=== PATIENT | male | born 1945 | race African-American/Black ===

== ENCOUNTER 2020-07-02 15:12 | Observation (INO) | payer MEDICARE, OTHER ==
--- NOTE | 2020-07-02 15:35 | ER Document Report ---
ED Neuro Symptoms/Deficit - General Stated Complaint: POSSIBLE STROKE Time Seen by Provider: 07/02/20 15:13 - HPI Notes: Patient is a 74-year-old male who is a poor historian and presents with stroke- like symptoms. Patient is brought in by EMS. Information is provided by them. Family called because they thought that he had worsening slurred speech than normal. He also had worsening left-sided weakness than his baseline. 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 When the ambulance arrived, the family states his symptoms have improved. He is at baseline. Patient is alert and oriented. Last known well was approximately 2:30 PM. Patient is not a TPA candidate due to resolving symptoms. - Related Data Allergies/Adverse Reactions: No Known Allergies Allergy (Unverified 07/02/20 23:46) Past Medical History - General Information source: Relative, Emergency Med Personnel - Social History Smoking Status: Unknown if Ever Smoked Family History: Reviewed & Not Pertinent Review of Systems - Review of Systems Notes: CONSTITUTIONAL: No fever. Positive for fatigue. SKIN: No rash. EYES: No recent vision problems or eye pain. CARDIOVASCULAR: No chest pain or edema. RESPIRATORY: No cough, shortness of breath, congestion, or wheezing. GASTROINTESTINAL: No abdominal pain. Positive for diarrhea. NEUROLOGIC: No seizures. Positive for resolved left sided weakness. HEMATOLOGIC: No unusual bruising or bleeding. Physical Exam - Vital signs Vitals: Temp 97.8 F 07/02/20 15:12 - General General appearance: Appears well Notes: VITAL SIGNS: Within normal limits. GENERAL: No acute distress, non-toxic appearance. HEAD: Normal with no signs of head trauma. EYES: EOMI, conjunctiva normal, no discharge. EARS: Hearing grossly intact. NOSE: Normal. NECK: Normal range of motion, no tenderness, supple, no lymphadenopathy, No adenopathy, no JVD. CHEST: Clear breath sounds bilaterally. No wheezes, rales, or rhonchi. CARDIAC: Regular rate and rhythm. VASCULAR: No Edema. ABDOMEN: Normal and soft with no tenderness. MUSCULOSKELETAL: Good range of motion of all major joints. NEUROLOGICAL: Alert and oriented. Follows commands appropriately. NIH is 0. He is at baseline. Moving bilateral extremities. PSYCHIATRIC: Normal Affect, judgement and mood. SKIN: Normal appearance with no rashes or lesions. Course - Re-evaluation Re-evalutation: 07/02/20 16:45 Patient's niece arrived and provided information. She states that he recently moved here from [place] in March. He was diagnosed with gallbladder cancer and was receiving some treatment but not chemotherapy or radiation. He just had a neurology appointment yesterday and they wanted to obtain an MRI to make sure the cancer had not metastasized. They thought that the cancer might have metastasized to the liver and the lung. They saw [facility] for this. His niece states that he was in the emergency room out of town several days ago for an episode of altered mental status. He also went back to the emergency room this morning around 4 AM for constipation and episode of altered mental status. They have been giving him MiraLAX and Dulcolax. Today, around 230pm, she states that he was walking to the bathroom when he became weak. She sat him down and he was not responding to her. She states that he had a blank look on his face. He also had worsening weakness of his left arm than his normal weakness. This episode lasted about 5 minutes. She states that over the past couple days, he has had episodes where he leans over and is very rigid and needs redirection. 07/02/20 19:22 I discussed with the hospitalist, Dr. Allen, for admission. He recommended we obtain an MRI with contrast as well as a UA. He states that if he does have metastasis to the brain, he would need a different facility. Patient's UA shows a UTI. He was given Rocephin. His MRI does not show an acute stroke. His niece states that he has been feeling very weak and she is concerned that he may fall. He is also been to several ERs for this within the past couple days. I did discuss with the hospitalist for admission for UTI and weakness. 07/03/20 01:33 - Vital Signs Vital signs: Temp Pulse Resp BP Pulse Ox 97.6 F 83 18 138/68 H 99 07/02/20 23:37 07/02/20 23:37 07/02/20 23:37 07/02/20 23:37 07/02/20 23:37 - Laboratory Result Diagrams: 07/02/20 15:45 07/02/20 15:45 Laboratory results interpreted by me: 07/02/20 07/02/20 07/02/20 15:45 15:45 17:10 WBC 12.3 H RBC 4.28 L Hgb 11.6 L Hct 34.5 L RDW 17.6 H Lymph % (Auto) 9.2 L Absolute Neuts (auto) 10.4 H Seg Neutrophils % 84.1 H Sodium 130.3 L Chloride 95 L Glucose 124 H POC Glucose 119 H AST 65 H Alkaline Phosphatase 293 H Total Protein 8.7 H Urine Protein Urine Blood Ur Leukocyte Esterase 07/02/20 17:25 WBC RBC Hgb Hct RDW Lymph % (Auto) Absolute Neuts (auto) Seg Neutrophils % Sodium Chloride Glucose POC Glucose AST Alkaline Phosphatase Total Protein Urine Protein 30 H Urine Blood SMALL H Ur Leukocyte Esterase LARGE H - Diagnostic Test Radiology reviewed: Image reviewed, Reports reviewed - EKG Interpretation by Me EKG shows normal: Sinus rhythm Rate: Normal Rhythm: NSR [place]/QRS: Right axis deviation Additional EKG results interpreted by nm: 07/02/20 15:35 Sinus rhythm at a rate of 95. QTc 473. No acute ST changes. No previous EKG available for comparison. Discharge - Discharge Clinical Impression: Stroke-like symptoms Urinary tract infection Qualifiers: Urinary tract infection type: site unspecified Hematuria presence: without hematuria Qualified Code(s): N39.0 - Urinary tract infection, site not specified Altered mental status Qualifiers: Altered mental status type: unspecified Qualified Code(s): R41.82 - Altered mental status, unspecified Condition: Stable Disposition: ADMITTED INPATIENT Admitting Provider: [facility] Unit Admitted: Medical Floor
--- NOTE | 2020-07-02 15:43 | RADIOLOGY REPORT (SQ) ---
EXAM DESCRIPTION: CT HEAD WITHOUT IMAGES COMPLETED DATE/TIME: 07/02/2020 3:18 pm REASON FOR STUDY: tia or stroke COMPARISON: None. TECHNIQUE: Axial images acquired through the brain without intravenous contrast. Images reviewed wi th bone, brain and subdural windows. Additional sagittal and coronal reconstructions were generated. Images stored on PACS. All CT scanners at this facility use dose modulation, iterative reconstruction, and/or weight based d osing when appropriate to reduce radiation dose to as low as reasonably achievable (ALARA). [facility]: Dose Right [facility]: CareDose [facility]: Dose Right [facility]: Teradose 4D [facility]: [employer] RADIATION DOSE: mGy. LIMITATIONS: None. FINDINGS: VENTRICLES: Prominent. CEREBRUM: Biparietal and right frontal encephalomalacia consistent with sequela previous large territ ory infarcts. Scattered foci of hypoattenuation throughout the periventricular white matter suggests background of chronic microvascular ischemic change. No hemorrhage. No mass. CEREBELLUM: No masses. No hemorrhage. No alteration of density. No evidence for acute infarction. EXTRAAXIAL SPACES: No abnormal fluid collection. No mass. ORBITS AND GLOBE: No intra- or extraconal masses. Normal contour of globe without masses. CALVARIUM: No fracture. PARANASAL SINUSES: No fluid or mucosal thickening. SOFT TISSUES: No mass or hematoma. OTHER: No other significant finding. IMPRESSION: Multifocal encephalomalacia consistent with sequela of remote ischemic injuries. EVIDENCE OF ACUTE STROKE: NO. COMMENT: Pertinent positive or negative findings of the imaging study reported as a CRITICAL EXAM to Dr Alvarez at15:29 on 07/02/2020. Category of Critical Exam: Stroke alert. TECHNICAL DOCUMENTATION: JOB ID: [id number] Quality ID # [id number]: Final reports with documentation of one or more dose reduction techniques (e.g., Au tomated exposure control, adjustment of the mA and/or kV according to patient size, use of iterative reconstruction technique) 2010 [employer]- All Rights Reserved Reading location - IP/workstation name: [email or web address]
--- NOTE | 2020-07-02 15:45 | ER Document Report ---
ED NIH Stroke Scale - NIH Stroke Scale When completed:: Protocol *: 1. NIH scale should be completed with appropriate accompanying assessment tools. *: 2. The NIH should reflect what the patient is capable of doing and should not be coached by the clinician. 1a. Level of Consciousness: 0=Alert;keenly responsive -: 1=Drowsy -: 2=Obtunded -: 3=Coma/unresponsive or reflex to noxious stimuli. 1a. Responses: 0 1b. Orientation Questions: a. What month is it? -: b. How old are you? -: 0=Answers both questions correctly. -: 1=Answers one question correctly or patient is intubated or has orotracheal trauma. -: 2=Answers neither question correctly. 1b. Responses: 0 1c. Response to commands: a. Open and close eyes? -: b. Industrial Cleaning Technician and release hand? -: Credit is given despite weakness. Demonstration of task is permitted. Substitute command if hands cannot be used. -: 0=Performs both tasks correctly -: 1=Performs one task correctly -: 2=Performs neither task correctly 1c. Responses: 0 2. Gaze: Establish eye contact and instruct patient to "Follow my finger" -: 0=Normal -: 1=Partial gaze palsy. Gaze is abnormal in one or both eyes, but where forced deviation or total gaze paresis is not present. -: 2=Forced deviation or total gaze paresis. 2. Responses: 0 3. Visual Benson: Sees fingers in all four quadrants. -: 0=No visual loss. -: 1=Partial hemianopsia. -: 2=Complete hemianopsia. -: 3=Bilateral hemianopsia (including Cortical blindness) 3. Responses: 0 4. Facial Movement: Instruct patient to: -: a. Show me your teeth -: b. Raise your eyebrows -: c. Close your eyes -: d. Smile -: 0=Normal symmetrical movement -: 1=Minor paralysis (flattened nasolabial fold, asymmetry on smiling). -: 2=Partial paralysis (total or near total paralysis of lower face). -: 3=Complete paralysis of upper and lower face 4. Responses: 0 5. Motor functions (left arm): Alternate sides and extend each arm with palms down (90 degrees if sitting or 45 degrees for supine). -: 0=No drift;limb holds for full 10 seconds. -: 1=Drift; limb holds but drifts down before full 10 seconds, but does not hit bed. -: 2=Some effort against gravity; limb cannot get to or maintain position. -: 3=No effort against gravity; limb falls. -: 4=No movement. -: UN=Amputation, joint fusion, explain in comments. 5. Responses (left arm): UN - residual weakness previous stroke 5. Motor Functions (right arm): Alternate sides and extend each arm with palms down (90 degrees if sitting or 45 degrees for supine). -: 0=No drift;limb holds for full 10 seconds. -: 1=Drift; limb holds but drifts down before full 10 seconds, but does not hit bed. -: 2=Some effort against gravity; limb cannot get to or maintain position. -: 3=No effort against gravity; limb falls. -: 4=No movement. -: UN=Amputation, joint fusion, explain in comments. 5. Responses (right arm): 0 6. Motor Functions (left leg): With patient lying supine, alternate sides and extend each leg (30 degrees always while supine). -: 0=No drift, leg holds position for full 5 seconds -: 1=Drift; leg falls before full 5 seconds but does not hit bed. -: 2=Some effort against gravity, leg falls to bed but some effort against gravity. -: 3=No effort against gravity, leg falls to bed immediately. -: 4=No movement. -: UN=Amputation, joint fusion; explain in comments. 6. Responses (left leg): UN - Residual weakness, previous stroke 6. Motor Functions (right leg): With patient lying supine, alternate sides and extend each leg (30 degrees always while supine). -: 0=No drift, leg holds position for full 5 seconds -: 1=Drift; leg falls before full 5 seconds but does not hit bed. -: 2=Some effort against gravity, leg falls to bed but some effort against gravity. -: 3=No effort against gravity, leg falls to bed immediately. -: 4=No movement. -: UN=Amputation, joint fusion; explain in comments. 6. Responses (right leg): 0 7. Limb Ataxia: With eyes open instruct patient to: -: a. "Touch your finger to your nose". -: b. "Touch your heel to your sterling" -: 0=Absent -: 1=Present in one limb. -: 2=Present in two limbs. -: UN=Amputation or joint fusion; explain in comments. 7. Responses: 0 8. Sensory: Test sensation using pinprick or noxious stimuli. Test as many body parts as possible. -: 0=Normal;no sensory loss -: 1=Mile to moderate sensory loss (patient feels pin prick but is less sharp on affected side). -: 2=Severe or total sensory loss. 8. Responses: 0 9. Best Language: Instruct patient to: -: a. "Describe what you see in this picture." -: b. "Name the items in this picture." -: c. "Read these sentences." -: 0=No aphasia, normal -: 1=Mild to moderate aphasia. -: 2=Severe aphasia -: 3=Mute, global aphasia, no usable speech or auditory comprehension. 9. Responses: 0 10. Articulation, Dysarthia: Instruct patient to: -: "Read these words" or "Repeat these words" -: 0=Normal -: 1=Mild to moderate; patient may slur some words but can be understood without difficulty. -: 2=Severe; patients speech so slurred as to be unintelligible in the absence of dysphasia. -: UN=Intubated or other physical barrier, explain in comments. 10. Responses: 0 11. Extinction or inattention: 0=No abnormality -: 1= Visual, tactile, auditory, spatial, or personal inattention or extinction to bilateral simulation in one or the sensory modalities. -: 2=Profound indira-inattention or indira-inattention to more than one modality; does not recognize own hand. 11. Responses: 0 Total Score: 0
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
[2020-07-02 16:05] LABS: ABSOLUTE BASOPHILS # (AUTO) 0.1 10^3/uL (0.0-0.2); ABSOLUTE LYMPHOCYTES (AUTO) 1.1 10^3/uL (0.5-4.7); ABSOLUTE MONOCYTES (AUTO) 0.7 10^3/uL (0.1-1.4); ABSOLUTE NEUT (AUTO) 10.4 10^3/uL (1.7-8.2); BASOPHILS % (AUTO) 0.6 % (0-2); EOSINOPHILS % (AUTO) 0.1 % (0-6); HEMATOCRIT 34.5 % (37.9-51.0); HEMOGLOBIN 11.6 g/dL (13.5-17.0); LYMPHOCYTES % (AUTO) 9.2 % (13-45); MEAN CORPUSCULAR HGB CONC 33.6 g/dL (32.0-36.0); MEAN CORPUSCULAR VOLUME 81 fl (80-97); PLATELET COUNT 360 10^3/uL (150-450); RED BLOOD COUNT 4.28 10^6/uL (4.35-5.55); RED CELL DISTRIBUTION WIDTH 17.6 % (11.5-14.0); SEGMENTED NEUTROPHILS % (AUTO) 84.1 % (42-78); TOTAL CELLS COUNTED % (AUTO) 100 %; WHITE BLOOD COUNT 12.3 10^3/uL (4.0-10.5)
[2020-07-02 16:08] LABS: INTERNATIONAL RATION (INR) 1.06; PARTIAL THROMBOPLASTIN TIME 24.3 SEC (23.5-35.8)
[2020-07-02 16:21] LABS: ALBUMIN 3.8 g/dL (3.5-5.0); ALKALINE PHOSPHATASE 293 U/L (38-126); ANION GAP 8 (5-19); ASPARTATE AMINO TRANSFERASE 65 U/L (17-59); BILIRUBIN,DIRECT 0.3 mg/dL (0.0-0.4); BILIRUBIN,TOTAL 0.6 mg/dL (0.2-1.3); BLOOD UREA NITROGEN 19 mg/dL (7-20); CARBON DIOXIDE 27 mmol/L (22-30); CHLORIDE 95 mmol/L (98-107); CREATINE KINASE 59 U/L (55-170); GLUCOSE 124 mg/dL (75-110); POTASSIUM 4.1 mmol/L (3.6-5.0); TOTAL PROTEIN 8.7 g/dL (6.3-8.2)
[2020-07-02] MEDS ORDERED: NORMAL SALINE 500 ML IV ONE (16:29)
[2020-07-02 16:38] LABS: TROPONIN I < 0.012 ng/mL
--- NOTE | 2020-07-02 17:45 | EKG REPORT ---
SEVERITY:- ABNORMAL ECG - SINUS RHYTHM RAA, CONSIDER BIATRIAL ABNORMALITIES BORDERLINE RIGHT AXIS DEVIATION BORDERLINE T ABNORMALITIES, ANT-LAT LEADS : Confirmed by: Madi Jo MD 02-Jul-2020 17:45:28
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
[2020-07-02 18:47] LABS: APPEARANCE,URINE CLOUDY; BILIRUBIN,URINE NEGATIVE (NEGATIVE); COLOR,URINE YELLOW; GLUCOSE, URINE NEGATIVE (NEGATIVE); KETONES,URINE NEGATIVE (NEGATIVE); LEUKOCYTE ESTERASE,URINE LARGE (NEGATIVE); NITRITE,URINE NEGATIVE (NEGATIVE); PROTEIN,URINE 30 mg/dL (NEGATIVE); URINE SPECIFIC GRAVITY 1.012; UROBILINOGEN,URINE NEGATIVE mg/dL (<2.0)
[2020-07-02] MEDS ORDERED: CEFTRIAXONE 1 GM/D5W RTU 1 GM/50 ML RTUPB IV ONE (20:27)
--- NOTE | 2020-07-02 20:29 | RADIOLOGY REPORT (SQ) ---
MR BRAIN WITHOUT THEN WITH IV CONTRAST HISTORY: TIA vs stroke, possible brain metastasis. COMPARISON: CT scan from earlier the same day. TECHNIQUE: Multisequence, multiplanar MR imaging of the brain was performed without and with the administration of intravenous gadolinium. FINDINGS: There are scattered areas of hypoattenuation within the periventricular white matter, which likely represent chronic microvascular ischemia. There are areas of encephalomalacia in the bilateral parietal lobes with surrounding gliosis. No abnormal parenchymal or dural enhancement is seen. There is no acute intracranial hemorrhage, extra-axial fluid collection, or mass. The orbits are unremarkable. The calvarium and skull base appear unremarkable. The paranasal sinuses are clear. IMPRESSION: 1. No evidence of acute infarction. 2. 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
[2020-07-02] MEDS ORDERED: ACETAMINOPHEN 325 MG TABLET PO PRN (21:51)
[2020-07-02] MEDS ORDERED: ONDANSETRON HCL INJ/PF 4 MG/2 ML SDV IV PRN (21:51)
[2020-07-02] MEDS: FAMOTIDINE 20 MG TABLET PO SCH (22:21)
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
[2020-07-03] MEDS: RINGERS SOLUTION,LACTATED 1,000 ML IV PRN (02:34)
[2020-07-03 05:49] LABS: ABSOLUTE BASOPHILS # (AUTO) 0.1 10^3/uL (0.0-0.2); ABSOLUTE LYMPHOCYTES (AUTO) 1.7 10^3/uL (0.5-4.7); ABSOLUTE NEUT (AUTO) 11.4 10^3/uL (1.7-8.2); BASOPHILS % (AUTO) 0.5 % (0-2); EOSINOPHILS % (AUTO) 0.2 % (0-6); HEMATOCRIT 33.2 % (37.9-51.0); MEAN CORPUSCULAR HEMOGLOBIN 26.5 pg (27.0-33.4); MEAN CORPUSCULAR VOLUME 80 fl (80-97); MONOCYTES % (AUTO) 6.7 % (3-13); PLATELET COUNT 377 10^3/uL (150-450); RED BLOOD COUNT 4.14 10^6/uL (4.35-5.55); RED CELL DISTRIBUTION WIDTH 17.2 % (11.5-14.0); SEGMENTED NEUTROPHILS % (AUTO) 80.6 % (42-78); TOTAL CELLS COUNTED % (AUTO) 100 %; WHITE BLOOD COUNT 14.2 10^3/uL (4.0-10.5)
[2020-07-03 06:08] LABS: CHOLESTEROL 126.07 mg/dL (0-200); TRIGLYCERIDES 49 mg/dL (<150)
[2020-07-03 06:19] LABS: DIRECT LDL 33 mg/dL (<100)
[2020-07-03 09:55] LABS: ANION GAP 10 (5-19); BLOOD UREA NITROGEN 20 mg/dL (7-20); CALCIUM 9.6 mg/dL (8.4-10.2); CARBON DIOXIDE 23 mmol/L (22-30); CHLORIDE 100 mmol/L (98-107); GLUCOSE 81 mg/dL (75-110); POTASSIUM 4.5 mmol/L (3.6-5.0)
[2020-07-03] MEDS: POLYETHYLENE GLYCOL 3350 POWDER 17 GM/1 PACKET PO SCH (10:52)
[2020-07-03] MEDS: ENOXAPARIN SODIUM INJ 40 MG/0.4 ML DISP.SYRIN SUBCUT SCH (10:52)
[2020-07-03] MEDS: ASPIRIN 81 MG TABLET, CHEWABLE PO SCH (10:52)
[2020-07-03] MEDS: FAMOTIDINE 20 MG TABLET PO SCH ×2 (10:52→21:33)
[2020-07-03] MEDS ORDERED: NA PHOS,M-B/NA PHOS,DI-BA (ADULT) 133 ML ENEMA PR ONE (12:00)
[2020-07-03] MEDS: TRAMADOL HCL 50 MG TABLET PO PRN ×2 (13:09→20:06)
[2020-07-03] MEDS: AMLODIPINE BESYLATE 5 MG TABLET PO SCH (13:09)
--- NOTE | 2020-07-03 16:47 | XCELERA REPORT ---
[address] [address] Transthoracic Echocardiogram Report Name: THOM DELGADO Age: 74 yrs Gender: Male : 1945 Patient Status: [facility]: 07/03/2020 01:44 PM History: NATALIE Height: 64 in Weight: 114 lb BSA: 1.5 m2 Procedure: A complete two-dimensional transthoracic echocardiogram was performed (2D, M-mode, spectral and color flow Doppler). The study was technically difficult with many images being suboptimal in quality. Reason For Study: possible TIA Previous Evaluation: No previous studies were available. History: TIA. Ordering Physician: AMEE VILLAVICENCIO Performed By: Jeannie Castro Interpretation Summary No embolus or vegetation seen. If clinically indicated PAIGE is more sensitive, The finding described on the mitral valve does not suggest vegetation. Left ventricular systolic function is normal. The Ejection Fraction estimate is 55-60% The right ventricle is normal in size and function. Mitral valve leaflets are thickened Mass /thickening on the septal leaflet could be consistent with myxomatous degeneration. There is a trace amount of mitral regurgitation There is no aortic valve stenosis There is a trace amount of tricuspid regurgitation Small pericardial effusion. No embolus or vegetation seen. If clinically indicated PAIGE is more sensitive, The finding described on the mitral valve does not suggest vegetation. MMode/2D Measurements & Calculations RVDd: 1.8 cm LVIDd: 2.5 cm FS: 30.2 % Ao root diam: 2.4 cm IVSd: 1.1 cm LVIDs: 1.7 cm EDV(Teich): 21.6 ml Ao root area: 4.4 cm2 LVPWd: 1.1 cm ESV(Teich): 8.7 ml LA dimension: 1.9 cm EF(Teich): 59.8 % Doppler Measurements & Calculations MV E max reinier: MV P1/2t max reinier: Ao V2 max: LV V1 max P.6 cm/sec 70.6 cm/sec 95.3 cm/sec 3.2 mmHg MV A max reinier: MV P1/2t: 38.7 msec Ao max P.6 mmHgLV V1 max: 127.3 cm/sec MVA(P1/2t): 5.7 cm2 89.8 cm/sec MV E/A: 0.55 MV dec slope: 534.0 cm/sec2 MV dec time: 0.13 sec PA V2 max: TR max reinier: MV P1/2t-pr_phl: 108.1 cm/sec 259.5 cm/sec 38.7 msec PA max P.7 mmHg TR max P.9 mmHg Left Ventricle The left ventricle is normal in size. There is moderate concentric left ventricular hypertrophy. Left ventricular systolic function is normal. The Ejection Fraction estimate is 55-60%. Doppler measurements suggest impaired left ventricular relaxation, which is associated with grade I/IV or mild diastolic dysfunction. Regional wall motion abnormalities cannot be excluded due to limited visualization. The left ventricular apex is not well visualized. Right Ventricle The right ventricle is normal in size and function. Atria The right atrium is mildly dilated. The left atrium is mildly dilated. The interatrial septum is intact with no evidence for an atrial septal defect. Mitral Valve Mitral valve leaflets are thickened Mass /thickening on the septal leaflet could be consistent with myxomatous degeneration. There is no evidence of mitral valve prolapse. There is no mitral valve stenosis. There is a trace amount of mitral regurgitation. Aortic Valve The aortic valve is sclerotic, but shows no functional abnormality. The aortic valve opens well. The aortic valve is trileaflet. There is no aortic valve stenosis. No aortic regurgitation is present. Tricuspid Valve The tricuspid valve is normal in structure and function. There is a trace amount of tricuspid regurgitation. Tricuspid regurgitation jet envelope not well defined to measure RV systolic pressure accurately. Pulmonic Valve The pulmonic valve is not well visualized. There is no pulmonic valvular stenosis. There is a trace amount of pulmonic regurgitation. Great Vessels The aortic root is normal size. The inferior vena cava appeared normal and decreased > 50% with respiration (RAP 5-10 mmHg). Effusions Small pericardial effusion. There are no echocardiographic or Doppler indications for cardiac tamponade. : AMEE VILLAVICENCIO Anil
--- NOTE | 2020-07-03 16:56 | RADIOLOGY REPORT (SQ) ---
EXAM DESCRIPTION: CAROTID DOPPLER IMAGES COMPLETED DATE/TIME: 07/03/2020 3:51 pm REASON FOR STUDY: possible TIA COMPARISON: None. TECHNIQUE: Grayscale ultrasound, Doppler velocity and spectra, and color Doppler images acquired of the extra-cranial carotid and vertebral arteries. Images stored on PACS. LIMITATIONS: None. FINDINGS: RIGHT CAROTID CCA Velocities: Within normal limits. ICA Velocities Peak systolic 0.50 m/s. End diastolic 0.12 m/s. Proximal ICA/CCA peak systolic ratio 0.8. Spectra normal. No significant plaque. LEFT CAROTID CCA Velocities: Within normal limits. ICA Velocities Peak systolic 0.60 m/s. End diastolic 0.15 m/s. Proximal ICA/CCA peak systolic ratio 1.0. Spectra normal. No significant plaque. VERTEBRAL ARTERIES: Antegrade flow. Normal waveforms. SUBCLAVIAN ARTERIES: Not imaged. OTHER: No other significant finding. IMPRESSION: NO HEMODYNAMICALLY SIGNIFICANT STENOSIS. COMMENT: Quality ID #[id number]: Velocity criteria are extrapolated from the diameter data as defined by t he Society of Radiologists in Ultrasound Consensus Conference. Radiology 2003: 229; 340-346. TECHNICAL DOCUMENTATION: JOB ID: [id number] 2010 [employer]- All Rights Reserved Reading location - IP/workstation name: [email or web address]
--- NOTE | 2020-07-03 17:57 | RADIOLOGY REPORT (SQ) ---
EXAM DESCRIPTION: HIP RIGHT AP/LATERAL IMAGES COMPLETED DATE/TIME: 07/03/2020 5:33 pm REASON FOR STUDY: right hip pain COMPARISON: None. NUMBER OF VIEWS: Two views. TECHNIQUE: AP pelvis and additional frog legview of the right hip. LIMITATIONS: None. FINDINGS: MINERALIZATION: Normal. RIGHT HIP: No fracture or dislocation. No worrisome bone lesions. LEFT HIP: No fracture or dislocation. No worrisome bone lesions. Limited views. PUBIS AND ISCHIUM: No fracture. PELVIS: No fracture. SACRUM: No fracture or dislocation. No worrisome bone lesions. LOWER LUMBAR SPINE: Lower lumbar degenerative disc disease and spondylosis. SOFT TISSUES: No findings. OTHER: No other significant finding. IMPRESSION: Lumbar degenerative changes. Normal right hip. TECHNICAL DOCUMENTATION: JOB ID: [id number] 2010 [employer]- All Rights Reserved Reading location - IP/workstation name: [email or web address]
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
[2020-07-03] MEDS: ACETAMINOPHEN 325 MG TABLET PO SCH ×2 (20:02→21:33)
[2020-07-03] MEDS: LIDOCAINE 5% (700 MG) TRANSDERMAL ADH..PATCH TP SCH (20:11)
[2020-07-03] MEDS ORDERED: CEFTRIAXONE 1 GM/D5W RTU 1 GM/50 ML RTUPB IV SCH (22:00)
[2020-07-03] MEDS ORDERED: ATORVASTATIN CALCIUM 40 MG TABLET PO SCH (22:00)
[2020-07-04] MEDS: ACETAMINOPHEN 325 MG TABLET PO SCH ×4 (02:27→14:45)
[2020-07-04] MEDS: TRAMADOL HCL 50 MG TABLET PO PRN ×2 (05:18→14:46)
[2020-07-04] MEDS: RINGERS SOLUTION,LACTATED 1,000 ML IV PRN ×2 (05:19→10:24)
[2020-07-04 05:58] LABS: HEMATOCRIT 29.7 % (37.9-51.0); HEMOGLOBIN 9.9 g/dL (13.5-17.0); MEAN CORPUSCULAR HEMOGLOBIN 26.5 pg (27.0-33.4); MEAN CORPUSCULAR HGB CONC 33.4 g/dL (32.0-36.0); MEAN CORPUSCULAR VOLUME 79 fl (80-97); PLATELET COUNT 316 10^3/uL (150-450); RED BLOOD COUNT 3.74 10^6/uL (4.35-5.55); RED CELL DISTRIBUTION WIDTH 17.5 % (11.5-14.0)
[2020-07-04 06:21] LABS: ANION GAP 8 (5-19); BLOOD UREA NITROGEN 17 mg/dL (7-20); CALCIUM 9.2 mg/dL (8.4-10.2); CARBON DIOXIDE 24 mmol/L (22-30); CHLORIDE 100 mmol/L (98-107); GLUCOSE 76 mg/dL (75-110); POTASSIUM 4.1 mmol/L (3.6-5.0)
[2020-07-04] MEDS ORDERED: MULTIVITAMIN TABLET PO SCH (10:00)
[2020-07-04] MEDS ORDERED: LISINOPRIL 10 MG TABLET PO SCH (10:00)
[2020-07-04] MEDS: FAMOTIDINE 20 MG TABLET PO SCH (10:24)
[2020-07-04] MEDS: ASPIRIN 81 MG TABLET, CHEWABLE PO SCH (10:25)
[2020-07-04] MEDS: AMLODIPINE BESYLATE 5 MG TABLET PO SCH (10:25)
[2020-07-04] MEDS: ENOXAPARIN SODIUM INJ 40 MG/0.4 ML DISP.SYRIN SUBCUT SCH (10:26)
[2020-07-04] MEDS: POLYETHYLENE GLYCOL 3350 POWDER 17 GM/1 PACKET PO SCH (10:27)
[2020-07-04] MEDS: LIDOCAINE 5% (700 MG) TRANSDERMAL ADH..PATCH TP SCH (10:27)
[2020-07-04 13:57] VITALS: BP 141/69
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
--- NOTE | 2020-07-04 18:10 | ADVANCED CARE ---
- Diagnosis (1) Stroke-like symptoms Diagnosis Current: Yes (2) Urinary tract infection Diagnosis Current: Yes (3) Frequent falls Diagnosis Current: Yes (4) Hyponatremia Diagnosis Current: Yes (5) Hypertension Diagnosis Current: Yes (6) History of CVA with residual deficit Diagnosis Current: Yes (7) Constipation Diagnosis Current: Yes (8) Right hip pain Diagnosis Current: Yes Attendance: Discussion was held between myself, the patient and patient's niece who is his medical POA. Resuscitation Status: Full Code Discussion: The patient did declare his code status as full code, this was confirmed by his niece, POA. This discussion was focused on making sure that everyone understood the concept of DNR versus comfort measures or less aggressive care. At this time patient and POA are wanting evaluation by oncologist before making code-status changes. They were receptive and understanding of conversation. Following conversation they were provided information regarding hospice services for future reference. Care Planning Goals: The goal is that patient and family gain better understanding of wishes following appt with oncologist. Document(s) Completed: none Time Spent: 20 minutes
== END 2020-07-04 16:00 | disposition home or self-care (01) ==
LOC: ER 15:12 → EH 22:21 → 5 23:34
PROVIDERS: ADMIT Student in an Organized Health Care Education/Training Program; ATTEND Physician Assistant
DX: I69.354 Hemiplegia and hemiparesis following cerebral infarction affecting left non-dominant side (principal); N39.0 Urinary tract infection, site not specified; M62.81 Muscle weakness (generalized); I10 Essential (primary) hypertension; E87.1 Hypo-osmolality and hyponatremia; E78.5 Hyperlipidemia, unspecified; R47.81 Slurred speech; R29.6 Repeated falls; K59.00 Constipation, unspecified; M25.551 Pain in right hip; M79.604 Pain in right leg; Z85.09 Personal history of malignant neoplasm of other digestive organs; F17.200 Nicotine dependence, unspecified, uncomplicated; R29.700 NIHSS score 0
CPT/HCPCS: 93005; 99285; 96360; 96361; 36415 ×3; 87040; 87086; 82553; 82962; 82550; 85025 ×2; 85027; 85610; 85730; 87077; 87088; 80048 ×2; 80053; 81001; 84484; 87186; 80061; 87150 ×26; 93306; 93880; 70553; 71045; 73502; 74018; 70450; 93010; 97116; 97162; 92610; 97165; G0378 ×3; A9576; A9270 ×18; J1650 ×2; J7040; J7120 ×2; J0696 ×2; J3490

== ENCOUNTER 2020-07-07 00:13 | Inpatient (IN) | payer MEDICARE ==
[2020-07-07] MEDS ORDERED: IBUPROFEN SUSP 100 MG/5 ML ORAL SYRINGE PO ONE (02:36)
--- NOTE | 2020-07-07 02:36 | RADIOLOGY REPORT (SQ) ---
EXAM DESCRIPTION: CT HEAD WITHOUT IV CONTRAST COMPLETED DATE/TME: 07/07/2020 01:58 CLINICAL HISTORY: 74 years, Male, slurred speech COMPARISON: 07/02/2020 CT TECHNIQUE: 191 Images stored on PACS. All CT scanners at this facility use dose modulation, iterative reconstruction, and/or weight based dosing when appropriate to reduce radiation dose to as low as reasonably achievable (ALARA). [facility]: Dose Right [facility]: CareDose [facility]: Dose Right [facility]: Teradose 4D [facility]: [employer] LIMITATIONS: None. FINDINGS: The globes are intact. The paranasal sinuses and mastoid air cells are well aerated. No displaced or depressed skull fracture. No acute intracranial hemorrhage. CT is limited for evaluation of acute infarct. No CT evidence for large or territorial acute infarct. Areas of old infarct with encephalomalacia in the high parietal regions bilaterally. Diffuse atrophy with small vessel ischemic change. No mass or midline shift IMPRESSION: No acute intracranial abnormality. Areas of old infarct bilaterally with atrophy and small vessel ischemic change TECHNICAL DOCUMENTATION: Quality ID # [id number]: Final reports with documentation of one or more dose reduction techniques (e.g., Automated exposure control, adjustment of the mA and/or kV according to patient size, use of iterative reconstruction technique) copyright 2011 [employer]- All Rights Reserved
[2020-07-07 02:59] LABS: ABSOLUTE BASOPHILS # (AUTO) 0.1 10^3/uL (0.0-0.2); ABSOLUTE EOSINOPHILS # (AUTO) 0.1 10^3/uL (0.0-0.6); ABSOLUTE LYMPHOCYTES (AUTO) 1.3 10^3/uL (0.5-4.7); ABSOLUTE MONOCYTES (AUTO) 0.7 10^3/uL (0.1-1.4); ABSOLUTE NEUT (AUTO) 8.7 10^3/uL (1.7-8.2); EOSINOPHILS % (AUTO) 0.7 % (0-6); HEMOGLOBIN 11.7 g/dL (13.5-17.0); LYMPHOCYTES % (AUTO) 11.9 % (13-45); MEAN CORPUSCULAR HEMOGLOBIN 26.8 pg (27.0-33.4); MEAN CORPUSCULAR HGB CONC 33.4 g/dL (32.0-36.0); MEAN CORPUSCULAR VOLUME 80 fl (80-97); MONOCYTES % (AUTO) 6.7 % (3-13); PLATELET COUNT 353 10^3/uL (150-450); RED BLOOD COUNT 4.37 10^6/uL (4.35-5.55); RED CELL DISTRIBUTION WIDTH 17.9 % (11.5-14.0); SEGMENTED NEUTROPHILS % (AUTO) 79.7 % (42-78); TOTAL CELLS COUNTED % (AUTO) 100 %; WHITE BLOOD COUNT 10.9 10^3/uL (4.0-10.5)
[2020-07-07 03:07] LABS: ALBUMIN 3.5 g/dL (3.5-5.0); ALKALINE PHOSPHATASE 259 U/L (38-126); ANION GAP 5 (5-19); ASPARTATE AMINO TRANSFERASE 64 U/L (17-59); BILIRUBIN,DIRECT 0.3 mg/dL (0.0-0.4); BILIRUBIN,TOTAL 0.6 mg/dL (0.2-1.3); BLOOD UREA NITROGEN 20 mg/dL (7-20); CALCIUM 9.8 mg/dL (8.4-10.2); CARBON DIOXIDE 31 mmol/L (22-30); CHLORIDE 101 mmol/L (98-107); GLUCOSE 104 mg/dL (75-110); POTASSIUM 4.4 mmol/L (3.6-5.0); TOTAL PROTEIN 7.9 g/dL (6.3-8.2)
[2020-07-07 03:18] LABS: APPEARANCE,URINE SLIGHTLY-CLOUDY; BILIRUBIN,URINE NEGATIVE (NEGATIVE); COLOR,URINE YELLOW; GLUCOSE, URINE NEGATIVE (NEGATIVE); KETONES,URINE NEGATIVE (NEGATIVE); PROTEIN,URINE 30 mg/dL (NEGATIVE); URINE SPECIFIC GRAVITY 1.017; UROBILINOGEN,URINE NEGATIVE mg/dL (<2.0)
[2020-07-07] MEDS ORDERED: ACETAMINOPHEN 1,000 MG/100 ML RTUPB IV ONE (03:48)
--- NOTE | 2020-07-07 03:59 | RADIOLOGY REPORT (SQ) ---
EXAM: CT lumbar spine without intravenous contrast. CLINICAL DATA: 74 years Male cachectic b/l leg pain r/o spinal mets. TECHNICAL DATA: Multiple high-resolution thin axial CT images were performed through the lumbar spine followed by sagittal and coronal reconstructed images. The CT study is performed according to ALARA (as low as reasonably achievable) or ALARA/IMAGE GENTLY, with automatic adjustment of mA and/or kV according to patient size. Performed on: 07/07/2020 at 3:11 AM COMPARISONS: None FINDINGS: The lumbar vertebrae are normal in height. There is normal alignment of the vertebrae. There is mild disc space narrowing at L4-L5. There is degenerative spurring along the lumbar spine and there are bridging right lateral syndesmophytes from T11 through L2-L3. There is a lytic lesion along the left T12 pedicle with slight posterior bowing of the posterior cortex of the T12 vertebral body. There is also a lytic lesion within the right sacral ala at the level of S1 with associated marked thinning of the bony cortex of the right S1 neural foramen also highly suspicious for lytic metastatic lesion. Additionally, there is a lytic lesion in the posterior medial right iliac bone. There is normal alignment of the facet joints on the parasagittal images. There are mild to moderate degenerative changes of the facet joints. There is no evidence of acute fracture or subluxation. There is mild L3-L4 and L5-S1 and moderate to severe L4-L5 canal stenosis secondary to disc osteophyte complexes and facet joint arthropathy. There is multilevel bilateral neural foraminal stenosis most pronounced on the right at L4-L5 and bilaterally at L5-S1. There are atherosclerotic calcifications along the abdominal aorta and iliac arteries. There are postsurgical changes in the region of the rectosigmoid junction. There is moderate fecal residue within the rectum. IMPRESSION: 1. There is a lytic lesion within the left T12 pedicle with associated slight bowing of the posterior cortex of T12 into the spinal canal and a lytic lesion in the right S1 sacral ala and posterior medial right iliac bone. These are concerning for metastatic disease. 2. Degenerative changes of the lumbar spine as described above with moderate to severe stenosis at L4-L5 and mild stenosis at L3-L4 and L5-S1. There is multilevel bilateral neural foraminal stenosis.
--- NOTE | 2020-07-07 04:05 | RADIOLOGY REPORT (SQ) ---
EXAM DESCRIPTION: TIB FIB BILAT 2 VIEWS CLINICAL HISTORY: 74 years Male cachectic b/l leg pain r/o spinal mets COMPARISON: None TECHNIQUE: Frontal and lateral views of the bilateral tibia/fibula FINDINGS: Right tibia/fibula: Osteopenia. Negative for acute fracture or dislocation. No flex bony destructive or expansile process. Soft tissues are unremarkable. Left tibia/fibula: Osteopenia. Negative for acute fracture or dislocation. Poorly defined sclerotic focus of the distal fibula. No flex bony destruction. IMPRESSION: Vague area of sclerosis involving the distal fibula on the left. However, this is indeterminate in etiology and clinical significance. This could simply reflect sequelae of old trauma. Osteopenia. No other evidence for osseous abnormality.
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
[2020-07-07] MEDS ORDERED: ONDANSETRON HCL INJ/PF 4 MG/2 ML SDV IV PRN (05:28)
--- NOTE | 2020-07-07 06:01 | PDOC H&P ---
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 She states that he has not been able to take his medication and has been unable to eat anything due to worsening dysphagia. Patient was discharged on pured diet but he has not been able to tolerate. Rapid swallow evaluation was done at the ED and failed. Patient also reports that he has been having right-sided hip pain. He has not had any new weakness of extremities. At baseline he has a slurred speech and he has no worsening of his speech. He denies any back pain, nausea, vomiting, chest pain, cough, palpitation, or any change in his bowel or urinary habits. He has been enrolled in [facility] for PT and he had a follow-up with heme-onc on 07/[address] Restrepo. Past Medical History Cardiac Medical History: Reports: Hypertension Psychiatric Medical History: Denies: Depression Social History Information Source: Patient, Relative Lives with: Family Smoking Status: Former Smoker Frequency of Alcohol Use: Rare Hx Recreational Drug Use: No Drugs: None - Advance Directive Resuscitation Status: Full Code Family History Family History: Reviewed & Not Pertinent Parental Family History Reviewed: Yes Children Family History Reviewed: Yes Sibling(s) Family History Reviewed.: Yes Medication/Allergy Home Medications: Amlodipine Besylate [Norvasc 5 mg Tablet] 5 mg PO DAILY 07/02/20 Atorvastatin Calcium [Lipitor 80 mg Tablet] 80 mg PO QHS 07/02/20 Docusate Sodium [Colace 100 mg Capsule] 100 mg PO BID 07/02/20 Lisinopril [Prinivil 10 mg Tablet] 10 mg PO DAILY 07/02/20 Multivitamin [Tab-A-Catarina (Multiple Vitamin) Tablet] 1 tab PO DAILY 07/02/20 Oxybutynin Chloride [Oxybutynin Chloride ER] 10 mg PO QPM 07/02/20 Tramadol HCl [Ultram 50 mg Tablet] 50 mg PO Q6HP PRN 07/02/20 Acetaminophen [Tylenol 325 mg Tablet] 650 mg PO Q4 tablet 12/05/20 Ampicillin Trihydrate [Princepen 500 mg Capsule] 500 mg PO TID #18 capsule 07/04/20 Lidocaine [Blue-Emu Lidocaine Patch] 1 each TP DAILY #5 adh..patch 07/04/20 Polyethylene Glycol 3350 [Miralax Powder 17 gm/Packet] 17 gm PO DAILY powd.pack 07/04/20 Allergies/Adverse Reactions: No Known Allergies Allergy (Unverified 07/02/20 23:46) Review of Systems Constitutional: ABSENT: chills, fever(s), headache(s), weight gain, weight loss Eyes: ABSENT: visual disturbances Ears: ABSENT: hearing changes Nose, Mouth, and Throat: ABSENT: headache(s), mouth pain, sore throat Cardiovascular: ABSENT: chest pain, dyspnea on exertion, edema, orthropnea, palpitations Respiratory: ABSENT: cough, hemoptysis Gastrointestinal: PRESENT: as per HPI Genitourinary: ABSENT: dysuria, hematuria Musculoskeletal: PRESENT: as per HPI Integumentary: ABSENT: rash, wounds Neurological: ABSENT: abnormal gait, abnormal speech, confusion, dizziness, focal weakness, syncope Psychiatric: ABSENT: anxiety, depression, homidical ideation, suicidal ideation Endocrine: ABSENT: cold intolerance, heat intolerance, polydipsia, polyuria Hematologic/Lymphatic: ABSENT: easy bleeding, easy bruising Physical Exam Vital Signs: Temp Pulse Resp BP Pulse Ox 98.1 F 90 14 159/83 H 99 07/07/20 00:34 07/07/20 04:25 07/07/20 04:25 07/07/20 04:25 07/07/20 04:25 Intake & Output 07/05/20 07/06/20 07/07/20 06:59 06:59 06:59 Intake Total 100 Balance 100 Weight 43.091 kg Additional comments: GENERAL APPEARANCE: Cachectic, alert and oriented x3, in no acute distress HEENT: Normocephalic and atraumatic. No scleral icterus. Moist oral mucosa NECK: Supple. No lymphadenopathy or tenderness. No JVD CHEST: Symmetric. Nontender to palpation. LUNGS: Clear with good air entry bilaterally. No wheezing or crackles HEART: Regular rate and rhythm with normal S1 and S2. No murmurs, gallops, or rubs. ABDOMEN: soft, active bowel sounds, no direct or rebound tenderness. No organomegaly detected. EXTREMITIES: No cyanosis, clubbing, or edema. MUSCULOSKELETAL: No deformity, atrophy or swelling noted PSYCHIATRIC: Recent and remote memory is intact. Appropriate mood and affect. SKIN: Warm, dry, and well perfused. No lesions or rashes are noted. NEUROLOGIC: Cranial nerves II through XII intact Power is 4/5 in all extremities, Sensation to light touch intact in all 4 extremities Reflexes +2 bilaterally symmetrically Results Laboratory Results: 07/07/20 02:05 07/07/20 02:05 07/07/20 07/07/20 07/07/20 02:05 02:05 03:05 WBC 10.9 H RBC 4.37 Hgb 11.7 L Hct 35.0 L MCV 80 MCH 26.8 L MCHC 33.4 RDW 17.9 H Plt Count 353 Seg Neutrophils % 79.7 H Sodium 137.4 Potassium 4.4 Chloride 101 Carbon Dioxide 31 H Anion Gap 5 BUN 20 Creatinine 0.84 Est GFR ( Amer) > 60 Glucose 104 Calcium 9.8 Total Bilirubin 0.6 AST 64 H Alkaline Phosphatase 259 H Total Protein 7.9 Albumin 3.5 Urine Color YELLOW Urine Appearance SLIGHTLY-CLOUDY Urine pH 6.0 Ur Specific [place] 1.017 Urine Protein 30 H Urine Glucose (UA) NEGATIVE Urine Ketones NEGATIVE Urine Blood NEGATIVE Urine RBC (Auto) 6 Impressions: Head CT 07/07/20 01:28 IMPRESSION: No acute intracranial abnormality. Areas of old infarct bilaterally with atrophy and small vessel ischemic change TECHNICAL DOCUMENTATION: Quality ID # [id number]: Final reports with documentation of one or more dose reduction techniques (e.g., Automated exposure control, adjustment of the mA and/or kV according to patient size, use of iterative reconstruction technique) copyright 2011 [employer]- All Rights Reserved Lumbar Spine CT 07/07/20 02:36 IMPRESSION: 1. There is a lytic lesion within the left T12 pedicle with associated slight bowing of the posterior cortex of T12 into the spinal canal and a lytic lesion in the right S1 sacral ala and posterior medial right iliac bone. These are concerning for metastatic disease. 2. Degenerative changes of the lumbar spine as described above with moderate to severe stenosis at L4-L5 and mild stenosis at L3-L4 and L5-S1. There is multilevel bilateral neural foraminal stenosis. Tibia/Fibula X-Ray 07/07/20 02:36 IMPRESSION: Vague area of sclerosis involving the distal fibula on the left. However, this is indeterminate in etiology and clinical significance. This could simply reflect sequelae of old trauma. Osteopenia. No other evidence for osseous abnormality. Chest X-Ray 07/07/20 02:37 IMPRESSION: 1. Persistent right upper lung opacities with pleural base left lung calcification. Assessment and Plan - Diagnosis (1) Dysphagia Is this a current diagnosis for this admission?: Yes Plan: Patient presents with worsening of dysphagia Was previously on pured diet but has not been able to swallow since discharge from hospital Swallow eval was done at the ED and patient failed Has no new focal neurologic deficits Likely due to progression of underlying oropharyngeal dysphagia Obtain formal swallow eval by speech Keep n.p.o. Aspiration precaution Placed him on D5W (2) History of CVA with residual deficit Is this a current diagnosis for this admission?: Yes Plan: Patient has a history of CVA with residual left-sided weakness Has no new focal neurologic deficit on this presentation P.o. medications have been on hold due to dysphagia Will resume aspirin and statin after speech evaluation (3) History of bladder cancer Is this a current diagnosis for this admission?: Yes Plan: Status post resection of the tumor Currently awaiting for follow-up with heme-onc Has received 3 rounds of BCG X-ray of spine showed lytic lesion on T12 Continue follow-up with oncology (4) Hypertension Is this a current diagnosis for this admission?: Yes Plan: BP currently within acceptable range Home medications on hold due to risk of aspiration Closely monitor vitals (5) Right hip pain Is this a current diagnosis for this admission?: Yes Plan: X-ray done at the ED showed no acute fracture or dislocation Continue symptomatic treatments of pain - Time Time Spent with patient: 35 or more minutes Total Critical Time (Minutes): 35 Medications reviewed and adjusted accordingly: Yes Anticipated Discharge Disposition: Home with Home Health Anticipated Discharge Timeframe: within 48 hours - Inpatient Certification Based on my medical assessment, after consideration of the patient's comorbidi ties, presenting symptoms, or acuity I expect that the services needed warrant INPATIENT care.: Yes I certify that my determination is in accordance with my understanding of Monik ashby's requirements for reasonable and necessary INPATIENT services [42 CFR 412.3e].: Yes Medical Necessity: Failure to Improve With Outpatient Therapy, Significant Comorbidiites Make Outpatient Treatment Too Risky, Risk of Complication if Not Cared For in Hospital Post Hospital Care: D/C or Transfer Summary
[2020-07-07] MEDS: DEXTROSE 5%-WATER 1000 ML 1,000 ML IV PRN (06:02)
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
[2020-07-07] MEDS ORDERED: ENOXAPARIN SODIUM INJ 40 MG/0.4 ML DISP.SYRIN SUBCUT SCH (10:00)
--- NOTE | 2020-07-07 10:21 | RADIOLOGY REPORT (SQ) ---
EXAM DESCRIPTION: VENOUS BILATERAL LOWER IMAGES COMPLETED DATE/TIME: 07/07/2020 10:06 am REASON FOR STUDY: b/l thigh pain metastatic cancer r/o dvts COMPARISON: None. TECHNIQUE: Dynamic and static melchor scale and color images acquired of both lower extremity venous sy stems. Selected spectral images acquired with additional compression and augmentation maneuvers. Imag es stored on PACS. LIMITATIONS: None. FINDINGS: RIGHT LEG COMMON FEMORAL AND FEMORAL: Normal phasicity, compression and augmentation. No visualized echogenic m aterial on melchor scale. No defects on color images. POPLITEAL: Normal compression and augmentation. No visualized echogenic material on melchor scale. No de fects on color images. CALF VESSELS: Normal compression and augmentation. No visualized echogenic material on melchor scale. No defects on color image. GSV AND SSV: Normal compression. No visualized echogenic material on melchor scale. No defects on color images. ANY DEEP VENOUS INSUFFICIENCY: No. ANY EVIDENCE OF POPLITEAL CYST: No. OTHER: No other significant finding. LEFT LEG COMMON FEMORAL AND FEMORAL: Normal phasicity, compression and augmentation. No visualized echogenic m aterial on melchor scale. No defects on color images. POPLITEAL: Normal compression and augmentation. No visualized echogenic material on melchor scale. No de fects on color images. CALF VESSELS: Normal compression and augmentation. No visualized echogenic material on melchor scale. No defects on color images. GSV AND SSV: Normal compression. No visualized echogenic material on melchor scale. No defects on color images. ANY DEEP VENOUS INSUFFICIENCY: No. ANY EVIDENCE POPLITEAL CYST: No. OTHER: No other significant finding. IMPRESSION: NO EVIDENCE DVT OR SVT IN EITHER LEG. TECHNICAL DOCUMENTATION: JOB ID: [id number] 2010 [employer]- All Rights Reserved Reading location - IP/workstation name: [email or web address]
[2020-07-07] MEDS ORDERED: TRAMADOL HCL 50 MG TABLET PO PRN (13:06)
--- NOTE | 2020-07-07 13:16 | Progress Note ---
Provider Note Provider Note: Patient has a positive blood culture from 1 bottle drawn on July 02. There is no evidence of any acute infection. This was done during his last admission. I will go ahead and repeat blood cultures are scheduled for tomorrow but will not start on any IV antibiotics now as there is no clinical evidence of infec tion
[2020-07-07] MEDS: ENOXAPARIN SODIUM INJ 30 MG/0.3 ML DISP.SYRIN SUBCUT SCH (13:19)
[2020-07-07] MEDS: AMLODIPINE BESYLATE 5 MG TABLET PO SCH (13:19)
[2020-07-07] MEDS: LIDOCAINE 5% (700 MG) TRANSDERMAL ADH..PATCH TP SCH (14:20)
[2020-07-07] MEDS: DOCUSATE SODIUM 100 MG CAPSULE PO SCH (17:20)
[2020-07-07] MEDS: OXYBUTYNIN CHLORIDE 5 MG TABLET PO SCH (17:20)
[2020-07-07] MEDS: ATORVASTATIN CALCIUM 80 MG TABLET PO SCH (21:33)
[2020-07-08] MEDS: DEXTROSE 5%-WATER 1000 ML 1,000 ML IV PRN (03:59)
[2020-07-08 05:41] LABS: ABSOLUTE BASOPHILS # (AUTO) 0.1 10^3/uL (0.0-0.2); ABSOLUTE EOSINOPHILS # (AUTO) 0.1 10^3/uL (0.0-0.6); ABSOLUTE LYMPHOCYTES (AUTO) 2.4 10^3/uL (0.5-4.7); ABSOLUTE MONOCYTES (AUTO) 1.1 10^3/uL (0.1-1.4); ABSOLUTE NEUT (AUTO) 9.5 10^3/uL (1.7-8.2); EOSINOPHILS % (AUTO) 0.5 % (0-6); HEMATOCRIT 32.2 % (37.9-51.0); HEMOGLOBIN 10.6 g/dL (13.5-17.0); MEAN CORPUSCULAR HEMOGLOBIN 26.1 pg (27.0-33.4); MEAN CORPUSCULAR HGB CONC 32.9 g/dL (32.0-36.0); MEAN CORPUSCULAR VOLUME 79 fl (80-97); MONOCYTES % (AUTO) 8.6 % (3-13); PLATELET COUNT 272 10^3/uL (150-450); RED BLOOD COUNT 4.07 10^6/uL (4.35-5.55); RED CELL DISTRIBUTION WIDTH 17.8 % (11.5-14.0); SEGMENTED NEUTROPHILS % (AUTO) 71.9 % (42-78); TOTAL CELLS COUNTED % (AUTO) 100 %; WHITE BLOOD COUNT 13.2 10^3/uL (4.0-10.5)
--- NOTE | 2020-07-08 08:37 | PDOC CONSULTATION ---
Consultation Consult Date: 07/08/20 Attending physician:: AMEE VILLAVICENCIO Provider Consulted: MAISHA DILL Consult reason:: Patient with known history of bladder cancer here with dysphagia and weakness History of Present Illness Admission Date/PCP: 07/07/20 06:04 NOAH GUO MD Patient complains of: Dysphagia, weakness History of Present Illness: THOM DELGADO is a 74 year old male with known history of bladder cancer. He was diagnosed in 01/2020, I got most of his history from his niece who he is living with now. He was diagnosed in [place]. At that time he was found to have a bladder mass, and he was thereafter treated with intravesicular BCG. He received 2 doses of that and was actually supposed to receive his third dose th [facility] in the next 1 to 2 weeks, here, likely through either [facility] or [facility] [place]. He was admitted with weakness last week and ultimately discharged home and came back in with dysphagia. Dysphagia is been ongoing for the last few days, unable to keep anything down. Things are coming up. Plan for barium swallow today. Of note, on last admission he was found to have a lytic lesion in the spine and on this admission he had lumbar spine CT indicating both the T12 and S1 lytic lesion. In speaking with is niece, who brought her into the ER at the [facility] location, he had some form of CT imaging that indicated a possible lung and liver lesion. He was set up to see me in the office today to try and address these issues. In talking about his mental status, he has some element of dementia but notes that he was able to do most of his ADLs at least by himself prior to the last 1 to 2 weeks. Past Medical History Cardiac Medical History: Reports: Hypertension Neurological Medical History: Reports: Ischemic CVA - Sure bladder cancer as above Malignancy Medical History: Reports: Other - Bladder cancer as above Psychiatric Medical History: Reports: Dementia Denies: Depression Past Surgical History Past Surgical History: Reports: Other - Cystoscopy with bladder biopsy Social History Information Source: Relative Lives with: Family Smoking Status: Former Smoker Frequency of Alcohol Use: Rare Hx Recreational Drug Use: No Drugs: None - Advance Directive Resuscitation Status: Full Code Family History Family History: Reviewed & Not Pertinent Parental Family History Reviewed: Yes Children Family History Reviewed: Yes Sibling(s) Family History Reviewed.: Yes Medication/Allergy Home Medications: Amlodipine Besylate [Norvasc 5 mg Tablet] 5 mg PO DAILY 07/02/20 Atorvastatin Calcium [Lipitor 80 mg Tablet] 80 mg PO QHS 07/02/20 Docusate Sodium [Colace 100 mg Capsule] 100 mg PO BID 07/02/20 Lisinopril [Prinivil 10 mg Tablet] 10 mg PO DAILY 07/02/20 Multivitamin [Tab-A-Catarina (Multiple Vitamin) Tablet] 1 tab PO DAILY 07/02/20 Oxybutynin Chloride [Oxybutynin Chloride ER] 10 mg PO DAILY 07/02/20 Tramadol HCl [Ultram 50 mg Tablet] 50 mg PO Q6HP PRN 07/02/20 Acetaminophen [Tylenol 325 mg Tablet] 650 mg PO Q4 tablet 07/04/20 Ampicillin Trihydrate [Princepen 500 mg Capsule] 500 mg PO TID #18 capsule 07/04/20 Lidocaine [Blue-Emu Lidocaine Patch] 1 each TP DAILY #5 adh..patch 07/04/20 Aspirin [Aspir-Low] 81 mg PO DAILY 07/07/20 Allergies/Adverse Reactions: No Known Allergies Allergy (Unverified 07/02/20 23:46) Review of Systems ROS unobtainable: Due to mental status Physical Exam Vital Signs: Temp Pulse Resp BP Pulse Ox 97.9 F 88 15 152/81 H 100 07/08/20 08:03 07/08/20 08:03 07/08/20 08:03 07/08/20 08:03 07/08/20 08:03 Intake & Output 07/07/20 07/08/20 07/09/20 06:59 06:59 06:59 Intake Total 100 1000 Balance 100 1000 Weight 43.091 kg 39.1 kg General appearance: PRESENT: no acute distress, well-developed, well-nourished Head exam: PRESENT: atraumatic, normocephalic Eye exam: PRESENT: conjunctiva pink, EOMI, PERRLA. ABSENT: scleral icterus Ear exam: PRESENT: normal external ear exam Mouth exam: PRESENT: moist, tongue midline Neck exam: ABSENT: carotid bruit, JVD, lymphadenopathy, thyromegaly Respiratory exam: PRESENT: clear to auscultation pau. ABSENT: rales, rhonchi, wheezes Cardiovascular exam: PRESENT: RRR. ABSENT: diastolic murmur, rubs, systolic murmur Pulses: PRESENT: normal dorsalis pedis pul Vascular exam: PRESENT: normal capillary refill GI/Abdominal exam: PRESENT: normal bowel sounds, soft. ABSENT: distended, g uarding, mass, organolmegaly, rebound, tenderness Rectal exam: PRESENT: deferred Extremities exam: PRESENT: full ROM. ABSENT: calf tenderness, clubbing, pedal edema Neurological exam: PRESENT: alert, awake, oriented to person, oriented to place, oriented to time, oriented to situation, CN II-XII grossly intact. ABSENT: mo tor sensory deficit Psychiatric exam: PRESENT: appropriate affect, normal mood. ABSENT: homicidal ideation, suicidal ideation Skin exam: PRESENT: dry, intact, warm. ABSENT: cyanosis, rash Results Laboratory Results: 07/08/20 04:38 07/07/20 02:05 07/08/20 04:38 WBC 13.2 H RBC 4.07 L Hgb 10.6 L Hct 32.2 L MCV 79 L MCH 26.1 L MCHC 32.9 RDW 17.8 H Plt Count 272 Seg Neutrophils % 71.9 Impressions: Head CT 07/07/20 01:28 IMPRESSION: No acute intracranial abnormality. Areas of old infarct bilaterally with atrophy and small vessel ischemic change TECHNICAL DOCUMENTATION: Quality ID # 436: Final reports with documentation of one or more dose reduction techniques (e.g., Automated exposure control, adjustment of the mA and/or kV according to patient size, use of iterative reconstruction technique) copyright 2011 [employer]- All Rights Reserved Lumbar Spine CT 07/07/20 02:36 IMPRESSION: 1. There is a lytic lesion within the left T12 pedicle with associated slight bowing of the posterior cortex of T12 into the spinal canal and a lytic lesion in the right S1 sacral ala and posterior medial right iliac bone. These are concerning for metastatic disease. 2. Degenerative changes of the lumbar spine as described above with moderate to severe stenosis at L4-L5 and mild stenosis at L3-L4 and L5-S1. There is multilevel bilateral neural foraminal stenosis. Tibia/Fibula X-Ray 07/07/20 02:36 IMPRESSION: Vague area of sclerosis involving the distal fibula on the left. However, this is indeterminate in etiology and clinical significance. This could simply reflect sequelae of old trauma. Osteopenia. No other evidence for osseous abnormality. Chest X-Ray 07/07/20 02:37 IMPRESSION: 1. Persistent right upper lung opacities with pleural base left lung calcification. Venous Doppler Study 07/07/20 07:31 IMPRESSION: NO EVIDENCE DVT OR SVT IN EITHER LEG. Assessment & Plan - Diagnosis (1) Bladder cancer Qualifiers: Bladder location: unspecified site Qualified Code(s): C67.9 - Malignant neoplasm of bladder, unspecified Is this a current diagnosis for this admission?: Yes Plan: Anthony has notes from [place] [facility], we will get those notes and look over them. But now it appears that he may have a metastatic process ongoing, I will order CT of the chest abdomen pelvis, would prefer oral and IV contrast but if he does not pass barium swallow he may only get IV contrast. Initially was considering biopsying the bone but would be better to see if there is organ involvement and if there is a liver lesion that is potential for biopsy that would be easier to go after. If he indeed has metastatic disease, proven by biopsy, no further intravesicular BCG would be given and he would need systemic therapy. But of course before we consider that he would need to be able to swallow and get around. (2) Dysphagia Qualifiers: Dysphagia type: unspecified Qualified Code(s): R13.10 - Dysphagia, unspecified Is this a current diagnosis for this admission?: Yes Plan: Unknown cause, barium swallow pending, will probably need GI consult as well for endoscopy. (3) History of CVA with residual deficit Is this a current diagnosis for this admission?: Yes Plan: Anthony notes that he was able to walk around until the last 1 to 2 weeks, but does have residual left-sided weakness. Unsure if dysphagia is related to this. - Time Time Spent: Greater than 70 Minutes
[2020-07-08] MEDS: LIDOCAINE 5% (700 MG) TRANSDERMAL ADH..PATCH TP SCH (09:04)
[2020-07-08] MEDS: ENOXAPARIN SODIUM INJ 30 MG/0.3 ML DISP.SYRIN SUBCUT SCH (09:05)
--- NOTE | 2020-07-08 09:21 | RADIOLOGY REPORT (SQ) ---
EXAM DESCRIPTION: COOKIE SWALLOW IMAGES COMPLETED DATE/TIME: 07/08/2020 9:10 am REASON FOR STUDY: hx of CVA R78.81 BACTEREMIA dysphagia COMPARISON: None. TECHNIQUE: Videofluoroscopic swallowing examination was performed in conjunction with speech patholo gy. Videofluoroscopic imaging was obtained and reviewed and these are the findings: RADIATION DOSE: 5.6 minutes of fluoroscopy was used 1 images saved to PACS. LIMITATIONS: None FINDINGS: The patient was brought into the fluoro room and placed upright on a modified barium swall ow chair. The patient was then given multiple consistencies mixed with barium to swallow under live fluoroscopic video guidance. According to the Speech Pathologist there was laryngeal penetration and aspiration of thin liquids. There is penetration and aspiration of post swallow residual contrast f rom the Piriforms. IMPRESSION: LARYNGEAL PENETRATION AND ASPIRATION ABOVE. PLEASE SEE SPEECH PATHOLOGIST REPORT FOR OTHER FINDINGS AND RECOMMENDATIONS. COMMENT: Quality ID [id number]: Final reports for procedures using fluoroscopy that document radiation exp osure indices, or exposure time and number of fluorographic images (if radiation exposure indices are not available) TECHNICAL DOCUMENTATION: JOB ID: [id number] 2010 [employer]- All Rights Reserved Reading location - IP/workstation name: [email or web address]
[2020-07-08] MEDS ORDERED: ASPIRIN 81 MG TABLET, ENT COATED PO SCH (10:00)
[2020-07-08] MEDS ORDERED: (PENDING PHARMACY ID) (Oxybutynin Chloride [Oxybutynin Chloride Er] 10 MG Tab.Er.24) PO SCH (10:00)
[2020-07-08] MEDS ORDERED: LIDOCAINE 5% (700 MG) TRANSDERMAL ADH..PATCH TP SCH (11:45)
[2020-07-08] MEDS: DEXTROSE 5%-1/2 NORMAL SALINE 1,000 ML IV PRN (11:56)
[2020-07-08] MEDS: AMLODIPINE BESYLATE 5 MG TABLET PO SCH (11:57)
[2020-07-08] MEDS: LISINOPRIL 10 MG TABLET PO SCH (11:57)
[2020-07-08] MEDS: OXYBUTYNIN CHLORIDE 5 MG TABLET PO SCH ×2 (11:57→18:46)
[2020-07-08] MEDS: MULTIVITAMIN TABLET PO SCH (11:57)
--- NOTE | 2020-07-08 12:34 | ST Inp Modified Barium Swallow ---
Medical Diagnosis - Medical Diagnoses Medical Diagnosis Description & ICD-10 Code(s): dysphagia - ICD-10 Tx Diagnosis Coding (1) Dysphagia ICD-10 Code(s): R13.10 - DYSPHAGIA, UNSPECIFIED (2) History of CVA with residual deficit ICD-10 Code(s): I69.30 - UNSPECIFIED SEQUELAE OF CEREBRAL INFARCTION (3) Stroke-like symptoms ICD-10 Code(s): R29.90 - UNSPECIFIED SYMPTOMS AND SIGNS INVOLVING THE NERVOUS SYSTEM ST Inpatient MBS - General Date: 07/08/20 Date of Onset: 07/03/20 - approximate - History Medical History: per EMR: patient admitted with difficulty swallowing. Was previously admitted to hospital and had clinical swallow evaluation on 07/03/20, at that time puree solids and thin liquids were recommended. Nibeto reports that after discharge, patient has not been toleraing this diet. Prior medical history includes gallbladder cancer s/p resection and chemo, CVA with residual L side weakness, HTN, hyperlipidemia. The patient also failed a nursing swallow screen due initially to inability to drink all 90 mL of water, and then due to cough. Clinical bedside swallow assessment completed 07/07/20, patient demonstrated poor oral control of bolus, as well as gurgling voice quality after the swallow with liquid and puree. MBSS recommended at that time. Patient is currently NPO. Medications: Medications Reviewed Allergies: No known allergies - Subjective Current Nutritional Means: NPO Current Symptoms: Poor intake, Wet/gurgly voice Pain: Patient reports, 0/5 - Objective Assessment: Upright, Left Lateral - Food Trials Food Trials Used: Thin liquids, [place] thick liquids, Pureed The Patient: fed by ST, via cup, via spoon - Assessment Labial Function: Impaired - reduced seal Lingual Function: Within Functional Limits Mandibular Function: Within Functional Limits Dentition: Edentulous Velo-Pharyngeal Function: Unremarkable Laryngeal Function: Weak Cough - Pharyngeal Stage Initiation of Pharyngeal Stage: Delayed - bolus fully in valleculae and pyriform sinus up to 3 seconds prior to swallow initiation Decreased Laryngeal Elevation: Yes Reduced Velo-Pharyngeal Closure: no Reduced Pressure Generation: Yes Reduced Tongue Base Retraction: No Pre-Swallowing Pooling in Valleculae: Significant Pre-Swallowing Pooling in Pyriforms: Significant Reduced Thyro-Hyiod Approximation: Yes Reduced Epiglottic Excursion: Yes Multiple Swallows With: Ineffective Clearance Post Swallow Residuals in Valleculae: Moderate Post Swallow Residuals in Pyriforms: Significant Post Swallow Residuals: throughout pharynx - consistent residue in pharynx after the swallow, more so in pyriform than valleculae. No sensation of residue, required verbal cue from therapist to complete subsequent swallows, which ray tolentino cleared residue. Residue increased as texture increased. - Impression/Summary Laryngeal Penetration: Yes - deep penetration noted on the swallow with thin li quids, deep penetration seen after the swallow with residuals from multiple textures, all penetration was silent Tracheal Aspiration: yes - small amount of aspiration of thin liquid on the swallow, significant aspiration of nectar thick liquids due to residue in pyriform sinus after the swallow. All aspiration was silent. Effective Compensatory Strategies: throat clear & reswallow - reduced but did not eliminate risk Ineffective Compensatory Strategies: chin down Patient Presents With: Oral-Pharyngeal dysph., Severe Risk of Aspiration: Severe Risk of Nutritional Compromise: Severe - Recommendations NPO: therapeutic trials Strict Aspitarion Precautions: Yes Dysphagia Therapy with DISTRIBUTION SYSTEMS SERVICEPERSON: Yes - Goals: Patient will demonstrate effortful swallow with ice chip/small spoon sip of water with initiation less than 2 seconds in 4/5 trials. Patient will demonstrate completion of throat clear/re- swallow with liquid or thin puree bolus with min cues in 4/5 trials. Other Recommendations: Patient is at high risk of aspiration on all textures. Patient is also at high risk of nutritional compromise. Patient may wish to consider alterntive means of nutrition hydration. If patient and family wish to pursue PO diet, thin liquids and thin purees would be recommended due to pharygneal residue. Dysphagia therapy is also recommended to address reduced pharyngeal function. Plan to treat patient 1-2 times this week, 2-3 times next week. - Time Total Time: 30 Total Timed Minutes: 30
--- NOTE | 2020-07-08 13:32 | PDOC PROGRESS REPORT ---
Subjective Date:: 07/08/20 Reason For Visit: DYSPHAGIA Physical Exam Vital Signs: Temp Pulse Resp BP Pulse Ox 98.2 F 92 15 150/73 H 100 07/08/20 11:39 07/08/20 11:39 07/08/20 11:39 07/08/20 11:39 07/08/20 11:39 Intake & Output 07/07/20 07/08/20 07/09/20 06:59 06:59 06:59 Intake Total 100 1000 397 Balance 100 1000 397 Weight 43.091 kg 39.1 kg General appearance: PRESENT: no acute distress, thin, other - Severely undernourished and frail, cachectic Head exam: PRESENT: atraumatic, normocephalic Eye exam: PRESENT: conjunctiva pink, PERRLA. ABSENT: scleral icterus Ear exam: PRESENT: normal external ear exam Mouth exam: PRESENT: dry mucosa, tongue midline Neck exam: ABSENT: carotid bruit, JVD, lymphadenopathy, thyromegaly Respiratory exam: PRESENT: clear to auscultation pau. ABSENT: rales, rhonchi, wheezes Cardiovascular exam: PRESENT: RRR, +S1, +S2. ABSENT: diastolic murmur, rubs, systolic murmur Pulses: PRESENT: normal dorsalis pedis pul Vascular exam: PRESENT: normal capillary refill GI/Abdominal exam: PRESENT: normal bowel sounds, soft. ABSENT: distended, guarding, mass, organolmegaly, rebound, tenderness Rectal exam: PRESENT: deferred Extremities exam: PRESENT: full ROM. ABSENT: calf tenderness, clubbing, pedal edema Musculoskeletal exam: PRESENT: other - Loss of muscle mass Neurological exam: PRESENT: alert, awake, oriented to person, oriented to place, other - Left-sided weakness. ABSENT: motor sensory deficit Psychiatric exam: PRESENT: appropriate affect, normal mood. ABSENT: homicidal ideation, suicidal ideation Skin exam: PRESENT: dry, intact, warm. ABSENT: cyanosis, rash Results Laboratory Results: 07/08/20 04:38 07/07/20 02:05 07/08/20 04:38 WBC 13.2 H RBC 4.07 L Hgb 10.6 L Hct 32.2 L MCV 79 L MCH 26.1 L MCHC 32.9 RDW 17.8 H Plt Count 272 Seg Neutrophils % 71.9 Impressions: Head CT 07/07/20 01:28 IMPRESSION: No acute intracranial abnormality. Areas of old infarct bilaterally with atrophy and small vessel ischemic change TECHNICAL DOCUMENTATION: Quality ID # 436: Final reports with documentation of one or more dose reduction techniques (e.g., Automated exposure control, adjustment of the mA and/or kV according to patient size, use of iterative reconstruction technique) copyright 2011 [employer]- All Rights Reserved Lumbar Spine CT 07/07/20 02:36 IMPRESSION: 1. There is a lytic lesion within the left T12 pedicle with associated slight bowing of the posterior cortex of T12 into the spinal canal and a lytic lesion in the right S1 sacral ala and posterior medial right iliac bone. These are concerning for metastatic disease. 2. Degenerative changes of the lumbar spine as described above with moderate to severe stenosis at L4-L5 and mild stenosis at L3-L4 and L5-S1. There is multilevel bilateral neural foraminal stenosis. Tibia/Fibula X-Ray 07/07/20 02:36 IMPRESSION: Vague area of sclerosis involving the distal fibula on the left. However, this is indeterminate in etiology and clinical significance. This could simply reflect sequelae of old trauma. Osteopenia. No other evidence for osseous abnormality. Chest X-Ray 07/07/20 02:37 IMPRESSION: 1. Persistent right upper lung opacities with pleural base left lung calcification. Venous Doppler Study 07/07/20 07:31 IMPRESSION: NO EVIDENCE DVT OR SVT IN EITHER LEG. Modified Barium Swallow 07/08/20 00:00 IMPRESSION: LARYNGEAL PENETRATION AND ASPIRATION ABOVE. PLEASE SEE SPEECH PATHOLOGIST REPORT FOR OTHER FINDINGS AND RECOMMENDATIONS. Assessment and Plan - Diagnosis (1) Severe protein-calorie malnutrition Is this a current diagnosis for this admission?: Yes (2) Dysphagia Qualifiers: Dysphagia type: unspecified Qualified Code(s): R13.10 - Dysphagia, unspecified Is this a current diagnosis for this admission?: Yes Plan: Patient presents with worsening of dysphagia Was previously on pured diet but has not been able to swallow since discharge from hospital Swallow eval was done at the ED and patient failed Has no new focal neurologic deficits Likely due to progression of underlying oropharyngeal dysphagia Obtain formal swallow eval by speech Keep n.p.o. Aspiration precaution Placed him on D5W 07/08 Patient will likely need a PEG tube feeding. We will follow up with surgery as there is no GI on consultation (3) Bladder cancer Qualifiers: Bladder location: unspecified site Qualified Code(s): C67.9 - Malignant neoplasm of bladder, unspecified Is this a current diagnosis for this admission?: Yes Plan: Oncology comments appreciated (4) History of CVA with residual deficit Is this a current diagnosis for this admission?: Yes Plan: Patient has a history of CVA with residual left-sided weakness Has no new focal neurologic deficit on this presentation P.o. medications have been on hold due to dysphagia Will resume aspirin and statin once able to (5) Hypertension Is this a current diagnosis for this admission?: Yes Plan: Placed on IV Vasotec as patient is unable to tolerate p.o. (6) Right hip pain Is this a current diagnosis for this admission?: Yes Plan: Due to his osseous lesion (7) Urinary tract infection Qualifiers: Urinary tract infection type: site unspecified Hematuria presence: without hematuria Qualified Code(s): N39.0 - Urinary tract infection, site not specified Is this a current diagnosis for this admission?: Yes Plan: We will place patient on ceftriaxone as his urine is still positive. - Plan Summary Summary: Patient had a swallowing evaluation this morning which he basically failed. He was noted to be silently aspirating. Also when I was in the room he actually threw up some applesauce that he had had with his pills. Patient thus will be made n.p.o. Try to contact the surgical list I am still waiting for a call back. Patient was also seen by Dr. Arora today and is comments noted. It appears patient will need EGD and hopefully this can be achieved as I suspect he will also need a PEG tube. It appears that he did had CT imaging done that indicated a possible lung and liver lesion at an outside facility. He also had lumbar CT scan indicating both T12 and S1 lytic lesion. Patient nutritional status is very poor, a BMI of 14.8 with a weight of 39.1 kg is severely malnourished and even before any kind of treatment can be attempted his nutritional status needs to be beefed up. Now with his dysphagia he will definitely need enteral feeding. Patient is also noted to have a residual left- sided weakness. CT scan of the brain done on admission reveals no acute findings. He does have a history of old CVA and is unclear if this is a sequela of that. - Time Time Spent with patient: 25-34 minutes Medications reviewed and adjusted accordingly: Yes Anticipated Discharge Disposition: Home with Home Health Anticipated Discharge Timeframe: within 72 hours
[2020-07-08] MEDS ORDERED: ENALAPRILAT DIHYDRATE INJ/PF 1.25 MG/1 ML SDV IV SCH (15:00)
[2020-07-08] MEDS: CEFTRIAXONE 1 GM/D5W RTU 1 GM/50 ML RTUPB IV SCH (16:51)
[2020-07-08] MEDS: ENALAPRILAT DIHYDRATE INJ/PF 2.5 MG/2 ML SDV IV SCH ×2 (16:59→21:15)
--- NOTE | 2020-07-08 18:17 | Progress Note ---
Provider Note Provider Note: After discussion with Dr. Luis he said chest obtaining a CT scan of the abdomen and pelvis, and place a PICC line for TPN in the interim and after results of CT available to consult them. Letter for CT scan placed
[2020-07-08] MEDS: DOCUSATE SODIUM 100 MG/10 ML UDC PO SCH (18:44)
[2020-07-08] MEDS: ATORVASTATIN CALCIUM 80 MG TABLET PO SCH (21:06)
[2020-07-09] MEDS: ENALAPRILAT DIHYDRATE INJ/PF 2.5 MG/2 ML SDV IV SCH ×4 (03:27→21:45)
[2020-07-09 05:27] LABS: ABSOLUTE BASOPHILS # (AUTO) 0.1 10^3/uL (0.0-0.2); ABSOLUTE EOSINOPHILS # (AUTO) 0.1 10^3/uL (0.0-0.6); ABSOLUTE LYMPHOCYTES (AUTO) 1.6 10^3/uL (0.5-4.7); ABSOLUTE MONOCYTES (AUTO) 0.9 10^3/uL (0.1-1.4); ABSOLUTE NEUT (AUTO) 12.8 10^3/uL (1.7-8.2); BASOPHILS % (AUTO) 0.6 % (0-2); EOSINOPHILS % (AUTO) 0.5 % (0-6); HEMOGLOBIN 11.8 g/dL (13.5-17.0); LYMPHOCYTES % (AUTO) 10.4 % (13-45); MEAN CORPUSCULAR HEMOGLOBIN 26.8 pg (27.0-33.4); MEAN CORPUSCULAR HGB CONC 33.6 g/dL (32.0-36.0); MEAN CORPUSCULAR VOLUME 80 fl (80-97); PLATELET COUNT 329 10^3/uL (150-450); RED BLOOD COUNT 4.39 10^6/uL (4.35-5.55); RED CELL DISTRIBUTION WIDTH 18.1 % (11.5-14.0); SEGMENTED NEUTROPHILS % (AUTO) 82.5 % (42-78); TOTAL CELLS COUNTED % (AUTO) 100 %; WHITE BLOOD COUNT 15.5 10^3/uL (4.0-10.5)
[2020-07-09 05:50] LABS: ANION GAP 9 (5-19); BLOOD UREA NITROGEN 20 mg/dL (7-20); CALCIUM 9.6 mg/dL (8.4-10.2); CARBON DIOXIDE 29 mmol/L (22-30); CHLORIDE 94 mmol/L (98-107); GLUCOSE 105 mg/dL (75-110); POTASSIUM 4.1 mmol/L (3.6-5.0)
[2020-07-09] MEDS: AMPICILLIN TRIHYDRATE 500 MG PO SCH ×2 (07:10→07:11)
[2020-07-09] MEDS: DOCUSATE SODIUM 100 MG CAPSULE PO SCH (07:10)
--- NOTE | 2020-07-09 07:59 | PDOC PROGRESS REPORT ---
Subjective Date:: 07/09/20 Subjective:: Pt w/ considerable aspiration noted on swallow evals, planned for TPN and PICC line placement per hospitalist notes. Ct planned today as could not get yesterday 2nd to prev contrast admin. Await results to see if bx possible. Reason For Visit: DYSPHAGIA,UTI,SEVERE PROTEIN CALORI MALNUTRITION, Physical Exam Vital Signs: Temp Pulse Resp BP Pulse Ox 97.4 F 95 16 151/79 H 98 07/08/20 23:48 07/09/20 03:27 07/08/20 23:48 07/09/20 03:27 07/08/20 23:48 Intake & Output 07/08/20 07/09/20 07/10/20 06:59 06:59 06:59 Intake Total 1000 397 50 Balance 1000 397 50 Weight 39.1 kg 39.1 kg General appearance: PRESENT: no acute distress, well-developed, well-nourished Head exam: PRESENT: atraumatic, normocephalic Eye exam: PRESENT: conjunctiva pink, EOMI, PERRLA. ABSENT: scleral icterus Ear exam: PRESENT: normal external ear exam Mouth exam: PRESENT: moist, tongue midline Neck exam: ABSENT: carotid bruit, JVD, lymphadenopathy, thyromegaly Respiratory exam: PRESENT: clear to auscultation pau. ABSENT: rales, rhonchi, wheezes Cardiovascular exam: PRESENT: RRR. ABSENT: diastolic murmur, rubs, systolic murmur Pulses: PRESENT: normal dorsalis pedis pul Vascular exam: PRESENT: normal capillary refill GI/Abdominal exam: PRESENT: normal bowel sounds, soft. ABSENT: distended, guarding, mass, organolmegaly, rebound, tenderness Rectal exam: PRESENT: deferred Extremities exam: PRESENT: full ROM. ABSENT: calf tenderness, clubbing, pedal edema Neurological exam: PRESENT: alert, awake, oriented to person, oriented to place, oriented to time, oriented to situation, CN II-XII grossly intact. ABSENT: motor sensory deficit Psychiatric exam: PRESENT: appropriate affect, normal mood. ABSENT: homicidal ideation, suicidal ideation Skin exam: PRESENT: dry, intact, warm. ABSENT: cyanosis, rash Results Laboratory Results: 07/09/20 04:54 07/09/20 04:54 12/10/20 12/10/20 04:54 04:54 WBC 15.5 H RBC 4.39 Hgb 11.8 L Hct 35.0 L MCV 80 MCH 26.8 L MCHC 33.6 RDW 18.1 H Plt Count 329 Seg Neutrophils % 82.5 H Sodium 131.9 L Potassium 4.1 Chloride 94 L Carbon Dioxide 29 Anion Gap 9 BUN 20 Creatinine 0.76 Est GFR ( Amer) > 60 Glucose 105 Calcium 9.6 Impressions: Head CT 07/07/20 01:28 IMPRESSION: No acute intracranial abnormality. Areas of old infarct bilaterally with atrophy and small vessel ischemic change TECHNICAL DOCUMENTATION: Quality ID # 436: Final reports with documentation of one or more dose reduction techniques (e.g., Automated exposure control, adjustment of the mA and/or kV according to patient size, use of iterative reconstruction technique) copyright 2011 [employer]- All Rights Reserved Lumbar Spine CT 07/07/20 02:36 IMPRESSION: 1. There is a lytic lesion within the left T12 pedicle with associated slight bowing of the posterior cortex of T12 into the spinal canal and a lytic lesion in the right S1 sacral ala and posterior medial right iliac bone. These are concerning for metastatic disease. 2. Degenerative changes of the lumbar spine as described above with moderate to severe stenosis at L4-L5 and mild stenosis at L3-L4 and L5-S1. There is multilevel bilateral neural foraminal stenosis. Tibia/Fibula X-Ray 07/07/20 02:36 IMPRESSION: Vague area of sclerosis involving the distal fibula on the left. However, this is indeterminate in etiology and clinical significance. This could simply reflect sequelae of old trauma. Osteopenia. No other evidence for osseous abnormality. Chest X-Ray 07/07/20 02:37 IMPRESSION: 1. Persistent right upper lung opacities with pleural base left lung calcification. Venous Doppler Study 07/07/20 07:31 IMPRESSION: NO EVIDENCE DVT OR SVT IN EITHER LEG. Modified Barium Swallow 07/08/20 00:00 IMPRESSION: LARYNGEAL PENETRATION AND ASPIRATION ABOVE. PLEASE SEE SPEECH PATHOLOGIST REPORT FOR OTHER FINDINGS AND RECOMMENDATIONS. Assessment & Plan - Diagnosis (1) Bladder cancer Qualifiers: Bladder location: unspecified site Qualified Code(s): C67.9 - Malignant neoplasm of bladder, unspecified Is this a current diagnosis for this admission?: Yes Plan: planned for CT, further recs after imaging (2) Dysphagia Qualifiers: Dysphagia type: unspecified Qualified Code(s): R13.10 - Dysphagia, unspecified Is this a current diagnosis for this admission?: Yes Plan: ultimate peg will be needed and EGD to eval that area also. Plan first as above (3) History of CVA with residual deficit Is this a current diagnosis for this admission?: Yes Plan: plan as above - Time Time Spent with patient: 15-24 minutes
[2020-07-09] MEDS: ASPIRIN 81 MG TABLET, CHEWABLE PO SCH (09:16)
[2020-07-09] MEDS: MULTIVITAMIN TABLET PO SCH (09:16)
[2020-07-09] MEDS: OXYBUTYNIN CHLORIDE 5 MG TABLET PO SCH ×2 (09:16→17:09)
[2020-07-09] MEDS: LISINOPRIL 10 MG TABLET PO SCH (09:16)
[2020-07-09] MEDS: DOCUSATE SODIUM 100 MG/10 ML UDC PO SCH ×2 (09:16→17:08)
[2020-07-09] MEDS: AMLODIPINE BESYLATE 5 MG TABLET PO SCH (09:16)
[2020-07-09] MEDS: CEFTRIAXONE 1 GM/D5W RTU 1 GM/50 ML RTUPB IV SCH (12:08)
[2020-07-09] MEDS: ENOXAPARIN SODIUM INJ 30 MG/0.3 ML DISP.SYRIN SUBCUT SCH (12:11)
[2020-07-09] MEDS: DEXTROSE 5%-1/2 NORMAL SALINE 1,000 ML IV PRN (13:51)
--- NOTE | 2020-07-09 14:05 | RADIOLOGY REPORT (SQ) ---
EXAM DESCRIPTION: CT ABD/PELVIS WITH IV ONLY IMAGES COMPLETED DATE/TIME: 07/09/2020 8:45 am REASON FOR STUDY: Cancer Mets R78.81 BACTEREMIA K82.8 OTHER SPECIFIED DISEASES OF GALLBLADDER R07. 9 CHEST PAIN, UNSPECIFIED COMPARISON: None. TECHNIQUE: CT scan of the abdomen and pelvis performed using helical scanning technique with dynamic intravenous contrast injection. No oral contrast. Images reviewed with lung, soft tissue, and bone windows. Reconstructed coronal and sagittal MPR images reviewed. Delayed images for evaluation of the urinary system also acquired. All images stored on PACS. All CT scanners at this facility use dose modulation, iterative reconstruction, and/or weight based d osing when appropriate to reduce radiation dose to as low as reasonably achievable (ALARA). [facility]: Dose Right [facility]: CareDose [facility]: Dose Right [facility]: Teradose 4D [facility]: [employer] CONTRAST TYPE AND DOSE: contrast/concentration: Isovue 350.00 mmol/ml; Total Contrast Delivered: 45. 0 ml; Total Saline Delivered: 46.0 ml RENAL FUNCTION: GFR > 60. RADIATION DOSE: . LIMITATIONS: Motion artifact. Artifact from prior barium administration. FINDINGS: LOWER CHEST: See separate report of the CT of the chest. LIVER: Scattered low-density lesions suspicious for metastatic disease, 1 of the larger in right lobe posterior segment measuring 19 mm. SPLEEN: Atrophic. No focal lesions. PANCREAS: Atrophic. No focal lesions. GALLBLADDER: Not visualized. ADRENAL GLANDS: No significant masses or asymmetry. RIGHT KIDNEY AND URETER: No solid masses. No significant calcifications. No hydronephrosis or hyd roureter. LEFT KIDNEY AND URETER: No solid masses. No significant calcifications. No hydronephrosis or hydr oureter. AORTA AND VESSELS: No aneurysm. RETROPERITONEUM: No retroperitoneal adenopathy, hemorrhage or masses. BOWEL AND PERITONEAL CAVITY: Anastomosis sigmoid colon. No masses or inflammatory changes. No free f luid or peritoneal masses. APPENDIX: Not visualized. PELVIS: No mass. No free fluid. Normal bladder. ABDOMINAL WALL: No masses. No hernias. BONES: Lytic lesions in the spine and pelvis described on recent CT lumbar spine. OTHER: No other significant finding. IMPRESSION: 1. Suspected liver metastasis. 2. Previously reported bone metastasis. TECHNICAL DOCUMENTATION: JOB ID: [id number] Quality ID # 436: Final reports with documentation of one or more dose reduction techniques (e.g., Au tomated exposure control, adjustment of the mA and/or kV according to patient size, use of iterative reconstruction technique) 2010 [employer]- All Rights Reserved Reading location - IP/workstation name: [email or web address]
--- NOTE | 2020-07-09 14:12 | RADIOLOGY REPORT (SQ) ---
EXAM DESCRIPTION: CT CHEST WITH IMAGES COMPLETED DATE/TIME: 07/09/2020 8:44 am REASON FOR STUDY: CANCER METS R78.81 BACTEREMIA K82.8 OTHER SPECIFIED DISEASES OF GALLBLADDER R07. 9 CHEST PAIN, UNSPECIFIED COMPARISON: None. TECHNIQUE: CT scan of the chest performed using helical scanning technique with dynamic intravenous contrast injection. Images reviewed with lung, soft tissue and bone windows. Reconstructed coronal and sagittal MPR and MIP images reviewed. All images stored on PACS. All CT scanners at this facility use dose modulation, iterative reconstruction, and/or weight based d osing when appropriate to reduce radiation dose to as low as reasonably achievable (ALARA). [facility]: Dose Right [facility]: CareDose [facility]: Dose Right [facility]: Teradose 4D [facility]: [employer] RENAL FUNCTION: GFR > 60. RADIATION DOSE: CT Rad equipment meets quality standard of care and radiation dose reduction techniq ues were employed. CTDIvol: 4.5 - 4.7 mGy. DLP: 649 mGy-cm. . LIMITATIONS: None. FINDINGS: LUNGS AND PLEURA: Left apical mass 6.4 by 8.4 by 8.7 cm AP by transverse by craniocaudal d iameter. There is a rind of contiguous tissue extending inferiorly along the major fissure. Curvili near calcified plaque contiguous with the mass along the lateral chest wall. 1.4 x 2.8 cm pleural-ba sed nodule in the right lower lobe. Several smaller nodules more superiorly in the right lower lobe. Metal shrapnel right lateral chest wall. HILAR AND MEDIASTINAL STRUCTURES: Calcified mediastinal and right hilar nodes. HEART AND VASCULAR STRUCTURES: No aneurysm or dissection. No central pulmonary emboli. No pericardi al effusion. HARDWARE: None in the chest. UPPER ABDOMEN: See separate report of the CT of the abdomen. THYROID AND OTHER SOFT TISSUES: No masses. No adenopathy. BONES: Nothing acute. OTHER: No other significant finding. IMPRESSION: Large left Pancoast tumor. Satellite lesions in the right lower lobe suspicious for met astatic disease. TECHNICAL DOCUMENTATION: JOB ID: [id number] Quality ID # 436: Final reports with documentation of one or more dose reduction techniques (e.g., Au tomated exposure control, adjustment of the mA and/or kV according to patient size, use of iterative reconstruction technique) 2010 [employer]- All Rights Reserved Reading location - IP/workstation name: [email or web address]
--- NOTE | 2020-07-09 15:01 | RADIOLOGY REPORT (SQ) ---
EXAM DESCRIPTION: PICC INSERTION IMAGES COMPLETED DATE/TIME: 07/09/2020 1:27 pm REASON FOR STUDY: TPN R78.81 BACTEREMIA K82.8 OTHER SPECIFIED DISEASES OF GALLBLADDER R07.9 CHEST PAIN, UNSPECIFIED COMPARISON: None. FLUOROSCOPY TIME: 29 seconds of fluoroscopy was used. 1 images saved to PACS. TECHNIQUE: Fluoroscopic and ultrasound guided PICC placement. LIMITATIONS: None. PROCEDURE: After written consent and assessment were obtained, the patient was brought into the fluo roscopy room and placed supine on the table. Ultrasound evaluation of potential access sites were per formed. After successfully identifying a patent left basilic vein, the left arm was prepped and drape d in a sterile fashion along with the ultrasound probe. The entry site was anesthetized with 1% lidoc sharon. A 21 gauge 7 cm needle was advanced through the skin and into the basilic vein under live ultra sound guidance. An ultrasound image was saved to PACS confirming access site. A .018 guide wire was then inserted through the needle and into the venous system. The needle was then removed and an 11 b lade scalpel was used to make a 1cm skin incision. A 5 fr peel-away sheath was advanced over the wir e and into the venous system. A measurement was then made using the existing wire and live fluoroscop ic guidance. The wire was then removed and trimmed. The PICC was advanced through the peel-away sheat h and into the venous system. The peel-away sheath was removed and the catheter was adhered to the pa tients arm with a stat lock. The catheter was then aspirated and flushed and a sterile bandage was pl aced over the access site. A fluoroscopic spot image was saved to PACS confirming the catheter tip w ithin the superior vena cava. IMPRESSION: SUCCESSFUL PLACEMENT OF A 5 FR DUAL LUMEN 38 CM PICC IN THE LEFT BASILIC VEIN. COMMENT: Patient medication list reviewed: Yes- Quality ID# 130:Eligible professional attests to doc umenting in the medical record they obtained, updated, or reviewed the patient's current medications. . Quality ID 145: Final reports for procedures using fluoroscopy that document radiation exposure chaya tennille, or exposure time and number of fluorographic images (if radiation exposure indices are not avail able) Quality ID #76: The patient was prepped and draped using maximum sterile barrier technique including cap, mask, sterile gown, sterile gloves, a large sterile sheet, hand hygiene, and 2% Chlorhexidine fo r cutaneous antisepsis. When ultrasound is used, sterile ultrasound techniques are followed requiring sterile gel and sterile probes. TECHNICAL DOCUMENTATION: JOB ID: [id number] 2010 [employer]- All Rights Reserved rev-12/15 Reading location - IP/workstation name: [email or web address] [id number]
[2020-07-09] MEDS ORDERED: DEXTROSE 50%-WATER 25 GM/50 ML DISP.SYRIN IV PRN ×2 (16:06)
[2020-07-09] MEDS ORDERED: GLUCAGON,HUMAN RECOMB 1 MG INJ IM PRN (16:06)
[2020-07-09] MEDS ORDERED: DEXTROSE 40% GEL 15 GM TUBE PO PRN ×2 (16:06)
[2020-07-09] MEDS ORDERED: DEXTROSE 10%-WATER 1,000 ML IV PRN (16:06)
--- NOTE | 2020-07-09 16:06 | PDOC PROGRESS REPORT ---
Subjective Date:: 07/09/20 Subjective:: Patient seen sleeping and resting quietly with his niece at his bedside. Plan o f care discussed with. He is currently n.p.o. and has had no further episodes of vomiting. He is left upper extremity is noted to be swollen Reason For Visit: DYSPHAGIA,UTI,SEVERE PROTEIN CALORI MALNUTRITION, Physical Exam Vital Signs: Temp Pulse Resp BP Pulse Ox 97.8 F 52 L 17 146/79 H 91 L 07/09/20 11:19 07/09/20 11:19 07/09/20 11:19 07/09/20 11:19 07/09/20 11:19 Intake & Output 07/08/20 07/09/20 07/10/20 06:59 06:59 06:59 Intake Total 0628 852 3941 Balance 6514 239 4927 Weight 39.1 kg 39.1 kg General appearance: PRESENT: no acute distress, thin, other - Emaciated cachectic Head exam: PRESENT: normocephalic Eye exam: PRESENT: conjunctiva pink, EOMI. ABSENT: scleral icterus Ear exam: PRESENT: normal external ear exam Mouth exam: PRESENT: tongue midline Neck exam: ABSENT: carotid bruit, JVD, lymphadenopathy, thyromegaly Respiratory exam: PRESENT: clear to auscultation pau. ABSENT: rales, rhonchi, wheezes Cardiovascular exam: PRESENT: RRR, +S1, +S2. ABSENT: diastolic murmur, rubs, systolic murmur Pulses: PRESENT: normal dorsalis pedis pul Vascular exam: PRESENT: normal capillary refill GI/Abdominal exam: PRESENT: normal bowel sounds, soft. ABSENT: distended, guarding, mass, organolmegaly, rebound, tenderness Rectal exam: PRESENT: deferred Extremities exam: PRESENT: other - Right upper extremity swelling with no tend erness hypothenar eminence and wasted muscle. ABSENT: calf tenderness, clubbing, pedal edema Musculoskeletal exam: PRESENT: deformity Neurological exam: PRESENT: awake. ABSENT: motor sensory deficit Psychiatric exam: ABSENT: homicidal ideation, suicidal ideation Skin exam: PRESENT: dry, intact, warm. ABSENT: cyanosis, rash Results Laboratory Results: 07/09/20 04:54 07/09/20 04:54 07/09/20 07/09/20 04:54 04:54 WBC 15.5 H RBC 4.39 Hgb 11.8 L Hct 35.0 L MCV 80 MCH 26.8 L MCHC 33.6 RDW 18.1 H Plt Count 329 Seg Neutrophils % 82.5 H Sodium 131.9 L Potassium 4.1 Chloride 94 L Carbon Dioxide 29 Anion Gap 9 BUN 20 Creatinine 0.76 Est GFR ( Amer) > 60 Glucose 105 Calcium 9.6 Impressions: Head CT 07/07/20 01:28 IMPRESSION: No acute intracranial abnormality. Areas of old infarct bilaterally with atrophy and small vessel ischemic change TECHNICAL DOCUMENTATION: Quality ID # 436: Final reports with documentation of one or more dose reduction techniques (e.g., Automated exposure control, adjustment of the mA and/or kV according to patient size, use of iterative reconstruction technique) copyright 2011 [employer]- All Rights Reserved Lumbar Spine CT 07/07/20 02:36 IMPRESSION: 1. There is a lytic lesion within the left T12 pedicle with associated slight bowing of the posterior cortex of T12 into the spinal canal and a lytic lesion in the right S1 sacral ala and posterior medial right iliac bone. These are concerning for metastatic disease. 2. Degenerative changes of the lumbar spine as described above with moderate to severe stenosis at L4-L5 and mild stenosis at L3-L4 and L5-S1. There is multilevel bilateral neural foraminal stenosis. Tibia/Fibula X-Ray 07/07/20 02:36 IMPRESSION: Vague area of sclerosis involving the distal fibula on the left. However, this is indeterminate in etiology and clinical significance. This could simply reflect sequelae of old trauma. Osteopenia. No other evidence for osseous abnormality. Chest X-Ray 07/07/20 02:37 IMPRESSION: 1. Persistent right upper lung opacities with pleural base left lung calcification. Venous Doppler Study 07/07/20 07:31 IMPRESSION: NO EVIDENCE DVT OR SVT IN EITHER LEG. Modified Barium Swallow 07/08/20 00:00 IMPRESSION: LARYNGEAL PENETRATION AND ASPIRATION ABOVE. PLEASE SEE SPEECH PATHOLOGIST REPORT FOR OTHER FINDINGS AND RECOMMENDATIONS. PICC Line Insertion 07/09/20 00:00 IMPRESSION: SUCCESSFUL PLACEMENT OF A 5 FR DUAL LUMEN 38 CM PICC IN THE LEFT BASILIC VEIN. Abdomen/Pelvis CT 07/09/20 08:00 IMPRESSION: 1. Suspected liver metastasis. 2. Previously reported bone metastasis. Chest CT 07/09/20 08:00 IMPRESSION: Large left Pancoast tumor. Satellite lesions in the right lower lobe suspicious for metastatic disease. Assessment and Plan - Diagnosis (1) Severe protein-calorie malnutrition Is this a current diagnosis for this admission?: Yes Plan: Likely secondary to malignancy patient is cachectic emaciated and malnourished (2) Dysphagia Qualifiers: Dysphagia type: unspecified Qualified Code(s): R13.10 - Dysphagia, unspecified Is this a current diagnosis for this admission?: Yes (3) Bladder cancer Qualifiers: Bladder location: unspecified site Qualified Code(s): C67.9 - Malignant neoplasm of bladder, unspecified Is this a current diagnosis for this admission?: Yes Plan: Oncology comments appreciated. Patient is really in no condition for further therapy at this time (4) History of CVA with residual deficit Is this a current diagnosis for this admission?: Yes (5) Hypertension Is this a current diagnosis for this admission?: Yes (6) Right hip pain Is this a current diagnosis for this admission?: Yes (7) Urinary tract infection Qualifiers: Urinary tract infection type: site unspecified Hematuria presence: without hematuria Qualified Code(s): N39.0 - Urinary tract infection, site not specified Is this a current diagnosis for this admission?: Yes (8) Pancoast tumor of left lung Is this a current diagnosis for this admission?: Yes Plan: There is no neck swelling however this will likely explain patient's left upper extremity swelling. There is no numbness or tingling. Patient's condition is so poor that it is starting that he can tolerate any treatment at this time. (9) Poor prognosis Is this a current diagnosis for this admission?: Yes Plan: Unfortunately patient's prognosis is pretty dismal - Plan Summary Summary: Patient had a swallowing evaluation this morning which he basically failed. He was noted to be silently aspirating. Also when I was in the room he actually threw up some applesauce that he had had with his pills. Patient thus will be made n.p.o. Try to contact the surgical list I am still waiting for a call back. Patient was also seen by Dr. Arora today and is comments noted. It appears patient will need EGD and hopefully this can be achieved as I suspect he will also need a PEG tube. It appears that he did had CT imaging done that indicated a possible lung and liver lesion at an outside facility. He also had lumbar CT scan indicating both T12 and S1 lytic lesion. Patient nutritional status is very poor, a BMI of 14.8 with a weight of 39.1 kg is severely malnourished and even before any kind of treatment can be attempted his nutritional status needs to be beefed up. Now with his dysphagia he will defi nitely need enteral feeding. Patient is also noted to have a residual left- sided weakness. CT scan of the brain done on admission reveals no acute findings. He does have a history of old CVA and is unclear if this is a sequela of that. 07/09 Chest x-ray shows large left Pancoast tumor with satellite lesions in the right lower lobe suspicious for metastatic disease. T abdomen reveals suspect liver metastases as well as bone metastasis. Patient is scheduled for a PICC line so that we can start n.p.o. TPN in the interim as patient is grossly malnourished and underweight. Order TPN to be started once PICC line is in place - Time Time Spent with patient: 15-24 minutes Medications reviewed and adjusted accordingly: Yes Anticipated Discharge Disposition: Intermediate Facility Anticipated Discharge Timeframe: within 72 hours
[2020-07-09] MEDS: PANTOPRAZOLE SODIUM 40 MG VIAL IV SCH (16:18)
[2020-07-09 18:30] LABS: INTERNATIONAL RATION (INR) 1.08; PROTHROMBIN TIME 14.2 SEC (11.4-15.4)
[2020-07-09] MEDS: INSULIN REG, HUMAN 100 UNIT/ML 3 ML VIAL (PYX) SUBCUT SCH (18:53)
[2020-07-09] MEDS: NORMAL SALINE 1000 ML 1,000 ML IV PRN (19:06)
[2020-07-09 20:06] LABS: HEMATOCRIT 32.7 % (37.9-51.0); HEMOGLOBIN 10.8 g/dL (13.5-17.0); MEAN CORPUSCULAR HEMOGLOBIN 26.5 pg (27.0-33.4); MEAN CORPUSCULAR HGB CONC 33.1 g/dL (32.0-36.0); MEAN CORPUSCULAR VOLUME 80 fl (80-97); PLATELET COUNT 301 10^3/uL (150-450); RED BLOOD COUNT 4.08 10^6/uL (4.35-5.55); RED CELL DISTRIBUTION WIDTH 18.2 % (11.5-14.0)
[2020-07-09] MEDS: ATORVASTATIN CALCIUM 80 MG TABLET PO SCH (21:09)
[2020-07-10] MEDS: INSULIN REG, HUMAN 100 UNIT/ML 3 ML VIAL (PYX) SUBCUT SCH ×4 (03:23→17:39)
[2020-07-10] MEDS: ENALAPRILAT DIHYDRATE INJ/PF 2.5 MG/2 ML SDV IV SCH ×4 (03:30→22:00)
[2020-07-10 06:58] LABS: ALBUMIN 2.6 g/dL (3.5-5.0); ALKALINE PHOSPHATASE 200 U/L (38-126); ANION GAP 10 (5-19); ASPARTATE AMINO TRANSFERASE 47 U/L (17-59); BILIRUBIN,DIRECT 0.2 mg/dL (0.0-0.4); BILIRUBIN,TOTAL 0.5 mg/dL (0.2-1.3); BLOOD UREA NITROGEN 16 mg/dL (7-20); CALCIUM 8.8 mg/dL (8.4-10.2); CARBON DIOXIDE 23 mmol/L (22-30); CHLORIDE 100 mmol/L (98-107); GLUCOSE 78 mg/dL (75-110); PHOSPHORUS 3.2 mg/dL (2.5-4.5); POTASSIUM 3.8 mmol/L (3.6-5.0); TOTAL PROTEIN 6.2 g/dL (6.3-8.2)
[2020-07-10 07:05] LABS: PREALBUMIN 8.7 mg/dL (17.6-36.0)
--- NOTE | 2020-07-10 08:06 | PDOC PROGRESS REPORT ---
Subjective Date:: 07/10/20 Subjective:: Reviewed imaging, patient has a large lung lesion nearly 9 cm, also multiple liver lesions largest was nearly 2 cm. Per my view, liver lesion seems accessible for liver biopsy. In speaking with nursing, physical therapy try to work with him yesterday and speech therapy try to work with him and he refused both. I went in this morning and spoke with him at length about the findings, unsure of what his true understanding was of that but when I asked him if he wanted to do a biopsy to find out what this is, he refused that as well. I spoke to his niece, Lyndsay, who is the medical POA, and his tapper helper, and told her about the whole situation. I have asked her to speak with his family and to talk with the patient himself to see what she feels his true desires are. Agree with initiation of TPN, and family wanted to try that for at least a few days to see if he can get stronger. Reason For Visit: DYSPHAGIA,UTI,SEVERE PROTEIN CALORI MALNUTRITION, Physical Exam Vital Signs: Temp Pulse Resp BP Pulse Ox 97.9 F 102 H 18 160/62 H 96 07/09/20 23:19 07/10/20 03:30 07/09/20 23:19 07/10/20 03:30 07/09/20 23:19 Intake & Output 07/09/20 07/10/20 07/11/20 06:59 06:59 06:59 Intake Total 397 1363 Balance 397 1363 Weight 39.1 kg 31.5 kg General appearance: PRESENT: no acute distress, well-developed, well-nourished Head exam: PRESENT: atraumatic, normocephalic Eye exam: PRESENT: conjunctiva pink, EOMI, PERRLA. ABSENT: scleral icterus Ear exam: PRESENT: normal external ear exam Mouth exam: PRESENT: moist, tongue midline Neck exam: ABSENT: carotid bruit, JVD, lymphadenopathy, thyromegaly Respiratory exam: PRESENT: clear to auscultation pau. ABSENT: rales, rhonchi, wheezes Cardiovascular exam: PRESENT: RRR. ABSENT: diastolic murmur, rubs, systolic murmur Pulses: PRESENT: normal dorsalis pedis pul Vascular exam: PRESENT: normal capillary refill GI/Abdominal exam: PRESENT: normal bowel sounds, soft. ABSENT: distended, guarding, mass, organolmegaly, rebound, tenderness Rectal exam: PRESENT: deferred Extremities exam: PRESENT: full ROM. ABSENT: calf tenderness, clubbing, pedal edema Neurological exam: PRESENT: alert, awake, oriented to person, oriented to place, oriented to time, oriented to situation, CN II-XII grossly intact. ABSENT: motor sensory deficit Psychiatric exam: PRESENT: appropriate affect, normal mood. ABSENT: homicidal ideation, suicidal ideation Skin exam: PRESENT: dry, intact, warm. ABSENT: cyanosis, rash Results Laboratory Results: 07/09/20 19:38 07/10/20 04:50 07/09/20 07/09/20 07/09/20 17:58 17:58 19:38 WBC Cancelled 11.0 H RBC Cancelled 4.08 L Hgb Cancelled 10.8 L Hct Cancelled 32.7 L MCV Cancelled 80 MCH Cancelled 26.5 L MCHC Cancelled 33.1 RDW Cancelled 18.2 H Plt Count Cancelled 301 Sodium Potassium Chloride Carbon Dioxide Anion Gap BUN Creatinine Est GFR ( Amer) Glucose Calcium Phosphorus Magnesium 1.8 Total Bilirubin AST Alkaline Phosphatase Total Protein Albumin Prealbumin Triglycerides 51 07/10/20 04:50 WBC RBC Hgb Hct MCV MCH MCHC RDW Plt Count Sodium 132.6 L Potassium 3.8 Chloride 100 Carbon Dioxide 23 Anion Gap 10 BUN 16 Creatinine 0.77 Est GFR ( Amer) > 60 Glucose 78 Calcium 8.8 Phosphorus 3.2 Magnesium Total Bilirubin 0.5 AST 47 Alkaline Phosphatase 200 H Total Protein 6.2 L Albumin 2.6 L Prealbumin 8.7 L Triglycerides Impressions: Head CT 07/07/20 01:28 IMPRESSION: No acute intracranial abnormality. Areas of old infarct bilaterally with atrophy and small vessel ischemic change TECHNICAL DOCUMENTATION: Quality ID # 436: Final reports with documentation of one or more dose reduction techniques (e.g., Automated exposure control, adjustment of the mA and/or kV according to patient size, use of iterative reconstruction technique) copyright 2011 [employer]- All Rights Reserved Lumbar Spine CT 07/07/20 02:36 IMPRESSION: 1. There is a lytic lesion within the left T12 pedicle with associated slight bowing of the posterior cortex of T12 into the spinal canal and a lytic lesion in the right S1 sacral ala and posterior medial right iliac bone. These are concerning for metastatic disease. 2. Degenerative changes of the lumbar spine as described above with moderate to severe stenosis at L4-L5 and mild stenosis at L3-L4 and L5-S1. There is multilevel bilateral neural foraminal stenosis. Tibia/Fibula X-Ray 07/07/20 02:36 IMPRESSION: Vague area of sclerosis involving the distal fibula on the left. However, this is indeterminate in etiology and clinical significance. This could simply reflect sequelae of old trauma. Osteopenia. No other evidence for osseous abnormality. Chest X-Ray 07/07/20 02:37 IMPRESSION: 1. Persistent right upper lung opacities with pleural base left lung calcification. Venous Doppler Study 07/07/20 07:31 IMPRESSION: NO EVIDENCE DVT OR SVT IN EITHER LEG. Modified Barium Swallow 07/08/20 00:00 IMPRESSION: LARYNGEAL PENETRATION AND ASPIRATION ABOVE. PLEASE SEE SPEECH PATHOLOGIST REPORT FOR OTHER FINDINGS AND RECOMMENDATIONS. PICC Line Insertion 07/09/20 00:00 IMPRESSION: SUCCESSFUL PLACEMENT OF A 5 FR DUAL LUMEN 38 CM PICC IN THE LEFT BASILIC VEIN. Abdomen/Pelvis CT 07/09/20 08:00 IMPRESSION: 1. Suspected liver metastasis. 2. Previously reported bone metastasis. Chest CT 07/09/20 08:00 IMPRESSION: Large left Pancoast tumor. Satellite lesions in the right lower lobe suspicious for metastatic disease. Assessment & Plan - Diagnosis (1) Bladder cancer Qualifiers: Bladder location: unspecified site Qualified Code(s): C67.9 - Malignant neoplasm of bladder, unspecified Is this a current diagnosis for this admission?: Yes Plan: Multiple sites of disease, neck step would be consideration of liver biopsy. However unsure if patient really wants that or family really wants that. That could be delineated this weekend, after nieceLyndsay, speaks with patient and family. 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 - Time Time Spent with patient: 35 or more minutes
[2020-07-10] MEDS: ASPIRIN 81 MG TABLET, CHEWABLE PO SCH (09:17)
[2020-07-10] MEDS: AMLODIPINE BESYLATE 5 MG TABLET PO SCH (09:18)
[2020-07-10] MEDS: DOCUSATE SODIUM 100 MG/10 ML UDC PO SCH ×2 (09:18→17:13)
[2020-07-10] MEDS: OXYBUTYNIN CHLORIDE 5 MG TABLET PO SCH ×2 (09:18→17:13)
[2020-07-10] MEDS: MULTIVITAMIN TABLET PO SCH (09:18)
[2020-07-10] MEDS: LISINOPRIL 10 MG TABLET PO SCH (09:18)
[2020-07-10] MEDS: ENOXAPARIN SODIUM INJ 30 MG/0.3 ML DISP.SYRIN SUBCUT SCH (10:05)
[2020-07-10] MEDS: PANTOPRAZOLE SODIUM 40 MG VIAL IV SCH (10:06)
[2020-07-10] MEDS: NORMAL SALINE INJ/PF 0.9% 10 ML SDV IV PRN (10:06)
[2020-07-10] MEDS: CEFTRIAXONE 1 GM/D5W RTU 1 GM/50 ML RTUPB IV SCH (11:58)
--- NOTE | 2020-07-10 13:45 | PDOC PROGRESS REPORT ---
Subjective Date:: 07/10/20 Subjective:: Patient seen sleeping and resting quietly with his niece at his bedside. Plan o f care discussed with. He is currently n.p.o. and has had no further episodes of vomiting. His left upper extremity is noted to be swollen 07/10 patient's condition remain the same. He is sleeping comfortably Reason For Visit: DYSPHAGIA,UTI,SEVERE PROTEIN CALORI MALNUTRITION, Physical Exam Vital Signs: Temp Pulse Resp BP Pulse Ox 98.0 F 99 15 159/78 H 95 07/10/20 11:54 07/10/20 11:54 07/10/20 11:54 07/10/20 11:54 07/10/20 11:54 Intake & Output 07/09/20 07/10/20 07/11/20 06:59 06:59 06:59 Intake Total 397 1363 Balance 397 1363 Weight 39.1 kg 31.5 kg 31.5 kg General appearance: PRESENT: no acute distress, other - Cachectic emaciated and malnourished Head exam: PRESENT: atraumatic, normocephalic Eye exam: PRESENT: EOMI. ABSENT: scleral icterus Mouth exam: PRESENT: tongue midline Neck exam: ABSENT: carotid bruit, JVD, lymphadenopathy, thyromegaly Respiratory exam: PRESENT: clear to auscultation pau. ABSENT: rales, rhonchi, wheezes Cardiovascular exam: PRESENT: RRR, +S1, +S2. ABSENT: diastolic murmur, rubs, systolic murmur GI/Abdominal exam: PRESENT: normal bowel sounds, soft. ABSENT: distended, guarding, mass, organolmegaly, rebound, tenderness Rectal exam: PRESENT: deferred Extremities exam: PRESENT: full ROM. ABSENT: calf tenderness, clubbing, pedal edema Neurological exam: PRESENT: alert, awake, oriented to person, oriented to place, other - sleeping but arousable. ABSENT: motor sensory deficit Psychiatric exam: ABSENT: homicidal ideation, suicidal ideation Skin exam: PRESENT: dry, intact, warm. ABSENT: cyanosis, rash Results Laboratory Results: 07/09/20 19:38 07/10/20 04:50 07/09/20 07/09/20 07/09/20 17:58 17:58 19:38 WBC Cancelled 11.0 H RBC Cancelled 4.08 L Hgb Cancelled 10.8 L Hct Cancelled 32.7 L MCV Cancelled 80 MCH Cancelled 26.5 L MCHC Cancelled 33.1 RDW Cancelled 18.2 H Plt Count Cancelled 301 Sodium Potassium Chloride Carbon Dioxide Anion Gap BUN Creatinine Est GFR ( Amer) Glucose Calcium Phosphorus Magnesium 1.8 Total Bilirubin AST Alkaline Phosphatase Total Protein Albumin Prealbumin Triglycerides 51 07/10/20 04:50 WBC RBC Hgb Hct MCV MCH MCHC RDW Plt Count Sodium 132.6 L Potassium 3.8 Chloride 100 Carbon Dioxide 23 Anion Gap 10 BUN 16 Creatinine 0.77 Est GFR ( Amer) > 60 Glucose 78 Calcium 8.8 Phosphorus 3.2 Magnesium Total Bilirubin 0.5 AST 47 Alkaline Phosphatase 200 H Total Protein 6.2 L Albumin 2.6 L Prealbumin 8.7 L Triglycerides Impressions: Head CT 07/07/20 01:28 IMPRESSION: No acute intracranial abnormality. Areas of old infarct bilaterally with atrophy and small vessel ischemic change TECHNICAL DOCUMENTATION: Quality ID # 436: Final reports with documentation of one or more dose reduction techniques (e.g., Automated exposure control, adjustment of the mA and/or kV according to patient size, use of iterative reconstruction technique) copyright 2011 [employer]- All Rights Reserved Lumbar Spine CT 07/07/20 02:36 IMPRESSION: 1. There is a lytic lesion within the left T12 pedicle with associated slight bowing of the posterior cortex of T12 into the spinal canal and a lytic lesion in the right S1 sacral ala and posterior medial right iliac bone. These are concerning for metastatic disease. 2. Degenerative changes of the lumbar spine as described above with moderate to severe stenosis at L4-L5 and mild stenosis at L3-L4 and L5-S1. There is multilevel bilateral neural foraminal stenosis. Tibia/Fibula X-Ray 07/07/20 02:36 IMPRESSION: Vague area of sclerosis involving the distal fibula on the left. However, this is indeterminate in etiology and clinical significance. This could simply reflect sequelae of old trauma. Osteopenia. No other evidence for osseous abnormality. Chest X-Ray 07/07/20 02:37 IMPRESSION: 1. Persistent right upper lung opacities with pleural base left lung calcification. Venous Doppler Study 07/07/20 07:31 IMPRESSION: NO EVIDENCE DVT OR SVT IN EITHER LEG. Modified Barium Swallow 07/08/20 00:00 IMPRESSION: LARYNGEAL PENETRATION AND ASPIRATION ABOVE. PLEASE SEE SPEECH PATHOLOGIST REPORT FOR OTHER FINDINGS AND RECOMMENDATIONS. PICC Line Insertion 07/09/20 00:00 IMPRESSION: SUCCESSFUL PLACEMENT OF A 5 FR DUAL LUMEN 38 CM PICC IN THE LEFT BASILIC VEIN. Abdomen/Pelvis CT 07/09/20 08:00 IMPRESSION: 1. Suspected liver metastasis. 2. Previously reported bone metastasis. Chest CT 07/09/20 08:00 IMPRESSION: Large left Pancoast tumor. Satellite lesions in the right lower lobe suspicious for metastatic disease. Assessment and Plan - Diagnosis (1) Severe protein-calorie malnutrition Is this a current diagnosis for this admission?: Yes Plan: Likely secondary to malignancy patient is cachectic emaciated and malnourished. Continue with TPN in the interim (2) Dysphagia Qualifiers: Dysphagia type: unspecified Qualified Code(s): R13.10 - Dysphagia, unspecified Is this a current diagnosis for this admission?: Yes Plan: Patient presents with worsening of dysphagia Was previously on pured diet but has not been able to swallow since discharge from hospital Swallow eval was done at the ED and patient failed Has no new focal neurologic deficits Likely due to progression of underlying oropharyngeal dysphagia Obtain formal swallow eval by speech Keep n.p.o. Aspiration precaution Placed him on D5W 07/08 Patient will likely need a PEG tube feeding. We will follow up with surgery as there is no GI on consultation 07/10 this is on hold until patient next course of action is clear. We will continue with TPN (3) Bladder cancer Qualifiers: Bladder location: unspecified site Qualified Code(s): C67.9 - Malignant neoplasm of bladder, unspecified Is this a current diagnosis for this admission?: Yes Plan: Oncology comments appreciated. Patient is really in no condition for further therapy at this time. Plan is for a liver biopsy next week if family chooses. Since overall prognosis is very poor as he has metastatic disease. He may have another primary malignancy or this may have seeded from the bladder (4) History of CVA with residual deficit Is this a current diagnosis for this admission?: Yes (5) Hypertension Is this a current diagnosis for this admission?: Yes (6) Right hip pain Is this a current diagnosis for this admission?: Yes (7) Urinary tract infection Qualifiers: Urinary tract infection type: site unspecified Hematuria presence: without hematuria Qualified Code(s): N39.0 - Urinary tract infection, site not specified Is this a current diagnosis for this admission?: Yes Plan: Cont on ceftriaxone as his urine is still positive. (8) Pancoast tumor of left lung Is this a current diagnosis for this admission?: Yes (9) Poor prognosis Is this a current diagnosis for this admission?: Yes - Plan Summary Summary: Patient had a swallowing evaluation this morning which he basically failed. He was noted to be silently aspirating. Also when I was in the room he actually threw up some applesauce that he had had with his pills. Patient thus will be made n.p.o. Try to contact the surgical list I am still waiting for a call back. Patient was also seen by Dr. Arora today and is comments noted. It appears patient will need EGD and hopefully this can be achieved as I suspect he will also need a PEG tube. It appears that he did had CT imaging done that indicated a possible lung and liver lesion at an outside facility. He also had lumbar CT scan indicating both T12 and S1 lytic lesion. Patient nutritional status is very poor, a BMI of 14.8 with a weight of 39.1 kg is severely malnou rished and even before any kind of treatment can be attempted his nutritional status needs to be beefed up. Now with his dysphagia he will definitely need enteral feeding. Patient is also noted to have a residual left-sided weakness. CT scan of the brain done on admission reveals no acute findings. He does have a history of old CVA and is unclear if this is a sequela of that. 07/09 Chest x-ray shows large left Pancoast tumor with satellite lesions in the right lower lobe suspicious for metastatic disease. T abdomen reveals suspect liver metastases as well as bone metastasis. Patient is scheduled for a PICC line so that we can start n.p.o. TPN in the interim as patient is grossly malnourished and underweight. Order TPN to be started once PICC line is in place 07/10 Patient noted to have a large lung lesion Pancoast tumor as well as multiple liver metastatic lesions. Also has lytic lesion within the left T12 pedicle as well as lytic lesion in the right S1 sacral and posterior medial right iliac bone. His condition remains poor. His nutritional status is abysmal. Per Dr. Arora he spoke with his niece Lyndsay who is a medical POA and has been informed of the situation. She is advised to speak with the rest of the family to decide on the next course of action. Possible biopsy if family desired these however plan is to discuss with them to find out what the next step should be. Patient is possibly hospice appropriate. - Time Time Spent with patient: 15-24 minutes Medications reviewed and adjusted accordingly: Yes Anticipated Discharge Disposition: Home with Home Health Anticipated Discharge Timeframe: within 72 hours
[2020-07-10] MEDS ORDERED: AMINO ACIDS 5 %/DEXTROSE 20 % 1,000 ML IV PRN (18:00)
[2020-07-10] MEDS: ATORVASTATIN CALCIUM 80 MG TABLET PO SCH (22:01)
[2020-07-10] MEDS: NORMAL SALINE 1000 ML 1,000 ML IV PRN (22:01)
[2020-07-11] MEDS: INSULIN REG, HUMAN 100 UNIT/ML 3 ML VIAL (PYX) SUBCUT SCH ×4 (00:20→18:40)
[2020-07-11] MEDS: ENALAPRILAT DIHYDRATE INJ/PF 2.5 MG/2 ML SDV IV SCH ×4 (04:40→21:27)
[2020-07-11 07:39] LABS: ALBUMIN 2.8 g/dL (3.5-5.0); ALKALINE PHOSPHATASE 173 U/L (38-126); ANION GAP 6 (5-19); ASPARTATE AMINO TRANSFERASE 48 U/L (17-59); BILIRUBIN,DIRECT 0.2 mg/dL (0.0-0.4); BILIRUBIN,TOTAL 0.5 mg/dL (0.2-1.3); BLOOD UREA NITROGEN 14 mg/dL (7-20); CALCIUM 8.8 mg/dL (8.4-10.2); CARBON DIOXIDE 25 mmol/L (22-30); CHLORIDE 102 mmol/L (98-107); GLUCOSE 135 mg/dL (75-110); PHOSPHORUS 2.3 mg/dL (2.5-4.5); POTASSIUM 3.6 mmol/L (3.6-5.0); TOTAL PROTEIN 6.4 g/dL (6.3-8.2)
[2020-07-11 07:46] LABS: PREALBUMIN 8.1 mg/dL (17.6-36.0)
[2020-07-11] MEDS ORDERED: AMINO ACIDS 5 %/DEXTROSE 20 % 2,000 ML IV PRN (09:48)
[2020-07-11] MEDS: NORMAL SALINE 1000 ML 1,000 ML IV PRN (09:55)
[2020-07-11] MEDS: LISINOPRIL 10 MG TABLET PO SCH (10:07)
[2020-07-11] MEDS: OXYBUTYNIN CHLORIDE 5 MG TABLET PO SCH ×2 (10:07→17:12)
[2020-07-11] MEDS: ASPIRIN 81 MG TABLET, CHEWABLE PO SCH (10:07)
[2020-07-11] MEDS: MULTIVITAMIN TABLET PO SCH (10:07)
[2020-07-11] MEDS: DOCUSATE SODIUM 100 MG/10 ML UDC PO SCH ×2 (10:07→17:11)
[2020-07-11] MEDS: AMLODIPINE BESYLATE 5 MG TABLET PO SCH (10:07)
[2020-07-11] MEDS: ENOXAPARIN SODIUM INJ 30 MG/0.3 ML DISP.SYRIN SUBCUT SCH (12:41)
[2020-07-11] MEDS: CEFTRIAXONE 1 GM/D5W RTU 1 GM/50 ML RTUPB IV SCH (12:43)
--- NOTE | 2020-07-11 14:15 | PDOC PROGRESS REPORT ---
Subjective Date:: 07/11/20 Subjective:: Patient seen sleeping and resting quietly with his niece at his bedside. Plan o f care discussed with. He is currently n.p.o. and has had no further episodes of vomiting. His left upper extremity is noted to be swollen 07/10 patient's condition remain the same. He is sleeping comfortably 07/11 no new complaints as per nursing staff. Patient himself denies any complaints. He is aware that a biopsy is scheduled for July 13 Reason For Visit: DYSPHAGIA,UTI,SEVERE PROTEIN CALORI MALNUTRITION, Physical Exam Vital Signs: Temp Pulse Resp BP Pulse Ox 98.1 F 91 18 160/73 H 99 07/11/20 12:41 07/11/20 12:41 07/11/20 12:41 07/11/20 12:41 07/11/20 12:41 Intake & Output 07/10/20 07/11/20 07/12/20 06:59 06:59 06:59 Intake Total 1363 1050 893 Balance 1363 1050 893 Weight 31.5 kg 34.9 kg General appearance: PRESENT: no acute distress, other - Emaciated malnourished icteric Head exam: PRESENT: atraumatic, normocephalic Eye exam: PRESENT: EOMI, PERRLA. ABSENT: scleral icterus Ear exam: PRESENT: normal external ear exam Mouth exam: PRESENT: tongue midline Neck exam: ABSENT: carotid bruit, JVD, lymphadenopathy, thyromegaly Respiratory exam: PRESENT: clear to auscultation pau, unlabored. ABSENT: rales, rhonchi, wheezes Cardiovascular exam: PRESENT: RRR, +S1, +S2. ABSENT: diastolic murmur, rubs, systolic murmur Pulses: PRESENT: normal dorsalis pedis pul Vascular exam: PRESENT: normal capillary refill GI/Abdominal exam: PRESENT: normal bowel sounds, soft. ABSENT: distended, guarding, mass, organolmegaly, rebound, tenderness Rectal exam: PRESENT: deferred Extremities exam: PRESENT: full ROM, other - Left upper extremity. ABSENT: calf tenderness, clubbing, pedal edema Musculoskeletal exam: PRESENT: other - Muscle wasting, hypothenar prominence Neurological exam: PRESENT: alert, awake, oriented to person, oriented to place, oriented to situation, other - Left-sided weakness. ABSENT: motor sensory deficit Psychiatric exam: PRESENT: appropriate affect. ABSENT: homicidal ideation, suicidal ideation Skin exam: PRESENT: dry, intact, warm. ABSENT: cyanosis, rash Results Laboratory Results: 07/09/20 19:38 07/11/20 07:11 07/11/20 07:11 Sodium 133.2 L Potassium 3.6 Chloride 102 Carbon Dioxide 25 Anion Gap 6 BUN 14 Creatinine 0.55 Est GFR ( Amer) > 60 Glucose 135 H Calcium 8.8 Phosphorus 2.3 L Total Bilirubin 0.5 AST 48 Alkaline Phosphatase 173 H Total Protein 6.4 Albumin 2.8 L Prealbumin 8.1 L Impressions: Head CT 07/07/20 01:28 IMPRESSION: No acute intracranial abnormality. Areas of old infarct bilaterally with atrophy and small vessel ischemic change TECHNICAL DOCUMENTATION: Quality ID # 436: Final reports with documentation of one or more dose reduction techniques (e.g., Automated exposure control, adjustment of the mA and/or kV according to patient size, use of iterative reconstruction technique) copyright 2011 [employer]- All Rights Reserved Lumbar Spine CT 07/07/20 02:36 IMPRESSION: 1. There is a lytic lesion within the left T12 pedicle with associated slight bowing of the posterior cortex of T12 into the spinal canal and a lytic lesion in the right S1 sacral ala and posterior medial right iliac bone. These are concerning for metastatic disease. 2. Degenerative changes of the lumbar spine as described above with moderate to severe stenosis at L4-L5 and mild stenosis at L3-L4 and L5-S1. There is multilevel bilateral neural foraminal stenosis. Tibia/Fibula X-Ray 07/07/20 02:36 IMPRESSION: Vague area of sclerosis involving the distal fibula on the left. However, this is indeterminate in etiology and clinical significance. This could simply reflect sequelae of old trauma. Osteopenia. No other evidence for osseous abnormality. Chest X-Ray 07/07/20 02:37 IMPRESSION: 1. Persistent right upper lung opacities with pleural base left lung calcification. Venous Doppler Study 07/07/20 07:31 IMPRESSION: NO EVIDENCE DVT OR SVT IN EITHER LEG. Modified Barium Swallow 07/08/20 00:00 IMPRESSION: LARYNGEAL PENETRATION AND ASPIRATION ABOVE. PLEASE SEE SPEECH PATHOLOGIST REPORT FOR OTHER FINDINGS AND RECOMMENDATIONS. PICC Line Insertion 07/09/20 00:00 IMPRESSION: SUCCESSFUL PLACEMENT OF A 5 FR DUAL LUMEN 38 CM PICC IN THE LEFT BASILIC VEIN. Abdomen/Pelvis CT 07/09/20 08:00 IMPRESSION: 1. Suspected liver metastasis. 2. Previously reported bone metastasis. Chest CT 07/09/20 08:00 IMPRESSION: Large left Pancoast tumor. Satellite lesions in the right lower lobe suspicious for metastatic disease. Assessment and Plan - Diagnosis (1) Severe protein-calorie malnutrition Is this a current diagnosis for this admission?: Yes Plan: Likely secondary to malignancy patient is cachectic emaciated and malnourished. Continue with TPN in the interim until more definitive plans are made. It is unclear if this patient will be an appropriate candidate for PEG placement (2) Dysphagia Qualifiers: Dysphagia type: unspecified Qualified Code(s): R13.10 - Dysphagia, unspecified Is this a current diagnosis for this admission?: Yes Plan: Patient presents with worsening of dysphagia Was previously on pured diet but has not been able to swallow since discharge from hospital Swallow eval was done at the ED and patient failed Has no new focal neurologic deficits Likely due to progression of underlying oropharyngeal dysphagia Obtain formal swallow eval by speech Keep n.p.o. Aspiration precaution Placed him on D5W 07/08 Patient will likely need a PEG tube feeding. We will follow up with surgery as there is no GI on consultation 07/10 this is on hold until patient next course of action is clear. We will continue with TPN (3) Bladder cancer Qualifiers: Bladder location: unspecified site Qualified Code(s): C67.9 - Malignant neoplasm of bladder, unspecified Is this a current diagnosis for this admission?: Yes Plan: Oncology comments appreciated. Patient is really in no condition for further therapy at this time. Plan is for a liver biopsy next week if family chooses. Since overall prognosis is very poor as he has metastatic disease. He may have another primary malignancy or this may have seeded from the bladder (4) History of CVA with residual deficit Is this a current diagnosis for this admission?: Yes Plan: Patient has a history of CVA with residual left-sided weakness Has no new focal neurologic deficit on this presentation P.o. medications have been on hold due to dysphagia Will resume aspirin and statin once able to (5) Hypertension Is this a current diagnosis for this admission?: Yes (6) Right hip pain Is this a current diagnosis for this admission?: Yes (7) Urinary tract infection Qualifiers: Urinary tract infection type: site unspecified Hematuria presence: without hematuria Qualified Code(s): N39.0 - Urinary tract infection, site not specified Is this a current diagnosis for this admission?: Yes (8) Pancoast tumor of left lung Is this a current diagnosis for this admission?: Yes (9) Poor prognosis Is this a current diagnosis for this admission?: Yes - Plan Summary Summary: Patient had a swallowing evaluation this morning which he basically failed. He was noted to be silently aspirating. Also when I was in the room he actually threw up some applesauce that he had had with his pills. Patient thus will be made n.p.o. Try to contact the surgical list I am still waiting for a call back. Patient was also seen by Dr. Arora today and is comments noted. It appears patient will need EGD and hopefully this can be achieved as I suspect he will also need a PEG tube. It appears that he did had CT imaging done that indicated a possible lung and liver lesion at an outside facility. He also had lumbar CT scan indicating both T12 and S1 lytic lesion. Patient nutritional status is very poor, a BMI of 14.8 with a weight of 39.1 kg is severely malnourished and even before any kind of treatment can be attempted his nutritional status needs to be beefed up. Now with his dysphagia he will definitely need enteral feeding. Patient is also noted to have a residual left- sided weakness. CT scan of the brain done on admission reveals no acute findings. He does have a history of old CVA and is unclear if this is a sequela of that. 07/09 Chest x-ray shows large left Pancoast tumor with satellite lesions in the right lower lobe suspicious for metastatic disease. T abdomen reveals suspect liver metastases as well as bone metastasis. Patient is scheduled for a PICC line so that we can start n.p.o. TPN in the interim as patient is grossly malnourished and underweight. Order TPN to be started once PICC line is in place 07/10 Patient noted to have a large lung lesion Pancoast tumor as well as multiple liver metastatic lesions. Also has lytic lesion within the left T12 pedicle as well as lytic lesion in the right S1 sacral and posterior medial right iliac bone. His condition remains poor. His nutritional status is abysmal. Per Dr. Arora he spoke with his niece Lyndsay who is a medical POA and has been informed of the situation. She is advised to speak with the rest of the family to decide on the next course of action. Possible biopsy if family desired these however plan is to discuss with them to find out what the next step should be. Patient is possibly hospice appropriate. 07/11 patient is scheduled for liver biopsy on Monday, July 13 as per family's wishes. We will continue with the TPN in the interim. Patient for the hospital course and plan will be dictated by biopsy results. Patient has what appears to be grossly metastatic disease and his condition is poor. He has a known bladder cancer but now with numerous metastases identified. It is unclear if this is a static bladder cancer or there is a secondary primary malignancy - Time Time Spent with patient: 15-24 minutes Medications reviewed and adjusted accordingly: Yes Anticipated Discharge Disposition: Home, Self Care Anticipated Discharge Timeframe: within 72 hours
[2020-07-11] MEDS: ATORVASTATIN CALCIUM 80 MG TABLET PO SCH (21:22)
[2020-07-12] MEDS: ENALAPRILAT DIHYDRATE INJ/PF 2.5 MG/2 ML SDV IV SCH ×3 (04:05→14:08)
[2020-07-12] MEDS: INSULIN REG, HUMAN 100 UNIT/ML 3 ML VIAL (PYX) SUBCUT SCH ×4 (04:13→18:19)
[2020-07-12 07:43] LABS: ALBUMIN 2.9 g/dL (3.5-5.0); ALKALINE PHOSPHATASE 171 U/L (38-126); ANION GAP 5 (5-19); ASPARTATE AMINO TRANSFERASE 56 U/L (17-59); BILIRUBIN,DIRECT 0.1 mg/dL (0.0-0.4); BILIRUBIN,TOTAL 0.4 mg/dL (0.2-1.3); BLOOD UREA NITROGEN 13 mg/dL (7-20); CARBON DIOXIDE 27 mmol/L (22-30); CHLORIDE 102 mmol/L (98-107); GLUCOSE 118 mg/dL (75-110); PHOSPHORUS 2.6 mg/dL (2.5-4.5); TOTAL PROTEIN 6.6 g/dL (6.3-8.2)
[2020-07-12 07:50] LABS: PREALBUMIN 9.4 mg/dL (17.6-36.0)
[2020-07-12] MEDS: OXYBUTYNIN CHLORIDE 5 MG TABLET PO SCH (09:00)
[2020-07-12] MEDS: ASPIRIN 81 MG TABLET, CHEWABLE PO SCH (09:00)
[2020-07-12] MEDS: DOCUSATE SODIUM 100 MG/10 ML UDC PO SCH (09:00)
[2020-07-12] MEDS: MULTIVITAMIN TABLET PO SCH (09:01)
[2020-07-12] MEDS: LISINOPRIL 10 MG TABLET PO SCH (09:01)
[2020-07-12] MEDS: AMLODIPINE BESYLATE 5 MG TABLET PO SCH (09:01)
[2020-07-12] MEDS: CEFTRIAXONE 1 GM/D5W RTU 1 GM/50 ML RTUPB IV SCH (11:43)
[2020-07-12] MEDS: NORMAL SALINE 1000 ML 1,000 ML IV PRN (14:13)
--- NOTE | 2020-07-12 16:28 | PDOC PROGRESS REPORT ---
Subjective Date:: 07/12/20 Subjective:: The patient is a 74 year old male with a past medical history of bladder cancer with metastasis, hypertension, hyperlipidemia, and CVA with residual left-sided weakness who was admitted 07/07/2020 with Dysphagia. Patient was seen on morning rounds. He was found resting in bed, comfortably, on room air. He is orientated to self only; otherwise pleasantly confused. Answers most questions, "alrighty." He voices no complaints. He does deny fever, chest pain, dyspnea, abdominal pain, and nausea. However, ROS is limited r/t mentation. He does appear to be comfortably and is not noted to be in any acute distress at this time. No concerns per nursing. Reason For Visit: DYSPHAGIA,UTI,SEVERE PROTEIN CALORI MALNUTRITION, Physical Exam Vital Signs: Temp Pulse Resp BP Pulse Ox 98.4 F 101 H 16 141/93 H 98 07/12/20 11:32 07/12/20 14:08 07/12/20 11:32 07/12/20 14:08 07/12/20 11:32 Intake & Output 07/11/20 07/12/20 07/13/20 06:59 06:59 06:59 Intake Total 2026 986 5905 Balance 7300 072 5817 Weight 34.9 kg 30.1 kg General appearance: PRESENT: no acute distress, cooperative, thin - cachectic, well-developed Head exam: PRESENT: atraumatic, normocephalic Eye exam: PRESENT: conjunctiva pink, EOMI, PERRLA. ABSENT: scleral icterus Mouth exam: PRESENT: moist, tongue midline Teeth exam: PRESENT: poor dentation Respiratory exam: PRESENT: clear to auscultation pau, symmetrical, unlabored, other - room air. ABSENT: rales, rhonchi, wheezes Cardiovascular exam: PRESENT: RRR. ABSENT: diastolic murmur, rubs, systolic murmur Pulses: PRESENT: normal dorsalis pedis pul Vascular exam: PRESENT: normal capillary refill GI/Abdominal exam: PRESENT: normal bowel sounds, soft. ABSENT: distended, guarding, mass, organolmegaly, rebound, tenderness Rectal exam: PRESENT: deferred Extremities exam: PRESENT: full ROM - moves all extremities spontaneously. ABSENT: calf tenderness, clubbing, pedal edema Neurological exam: PRESENT: alert, awake, oriented to person, CN II-XII grossly intact, other - pleasantly confused. ABSENT: oriented to place, oriented to time, oriented to situation, motor sensory deficit Psychiatric exam: PRESENT: appropriate affect, normal mood. ABSENT: homicidal ideation, suicidal ideation Skin exam: PRESENT: dry, intact, warm. ABSENT: cyanosis, rash Results Laboratory Results: 07/09/20 19:38 07/12/20 07:04 07/12/20 07:04 Sodium 134.0 L Potassium 4.0 Chloride 102 Carbon Dioxide 27 Anion Gap 5 BUN 13 Creatinine 0.54 Est GFR ( Amer) > 60 Glucose 118 H Calcium 9.0 Phosphorus 2.6 Total Bilirubin 0.4 AST 56 Alkaline Phosphatase 171 H Total Protein 6.6 Albumin 2.9 L Prealbumin 9.4 L Impressions: Head CT 07/07/20 01:28 IMPRESSION: No acute intracranial abnormality. Areas of old infarct bilaterally with atrophy and small vessel ischemic change TECHNICAL DOCUMENTATION: Quality ID # 436: Final reports with documentation of one or more dose reduction techniques (e.g., Automated exposure control, adjustment of the mA and/or kV according to patient size, use of iterative reconstruction technique) copyright 2011 [employer] [facility]- All Rights Reserved Lumbar Spine CT 07/07/20 02:36 IMPRESSION: 1. There is a lytic lesion within the left T12 pedicle with associated slight bowing of the posterior cortex of T12 into the spinal canal and a lytic lesion in the right S1 sacral ala and posterior medial right iliac bone. These are concerning for metastatic disease. 2. Degenerative changes of the lumbar spine as described above with moderate to severe stenosis at L4-L5 and mild stenosis at L3-L4 and L5-S1. There is multilevel bilateral neural foraminal stenosis. Tibia/Fibula X-Ray 07/07/20 02:36 IMPRESSION: Vague area of sclerosis involving the distal fibula on the left. However, this is indeterminate in etiology and clinical significance. This could simply reflect sequelae of old trauma. Osteopenia. No other evidence for osseous abnormality. Chest X-Ray 07/07/20 02:37 IMPRESSION: 1. Persistent right upper lung opacities with pleural base left lung calcification. Venous Doppler Study 07/07/20 07:31 IMPRESSION: NO EVIDENCE DVT OR SVT IN EITHER LEG. Modified Barium Swallow 07/08/20 00:00 IMPRESSION: LARYNGEAL PENETRATION AND ASPIRATION ABOVE. PLEASE SEE SPEECH PATHOLOGIST REPORT FOR OTHER FINDINGS AND RECOMMENDATIONS. PICC Line Insertion 07/09/20 00:00 IMPRESSION: SUCCESSFUL PLACEMENT OF A 5 FR DUAL LUMEN 38 CM PICC IN THE LEFT BASILIC VEIN. Abdomen/Pelvis CT 07/09/20 08:00 IMPRESSION: 1. Suspected liver metastasis. 2. Previously reported bone metastasis. Chest CT 07/09/20 08:00 IMPRESSION: Large left Pancoast tumor. Satellite lesions in the right lower lobe suspicious for metastatic disease. Assessment and Plan - Diagnosis (1) Severe protein-calorie malnutrition Is this a current diagnosis for this admission?: Yes Plan: BMI 11.4 Likely secondary to malignancy patient is cachectic emaciated and malnourished. Continue with TPN in the interim until more definitive plans are made. It is unclear if this patient will be an appropriate candidate for PEG placementvs home w/ hospice. Oncology is consulted; plan for liver biopsy tomorrow. (2) Dysphagia Qualifiers: Dysphagia type: unspecified Qualified Code(s): R13.10 - Dysphagia, unspecified Is this a current diagnosis for this admission?: Yes Plan: Patient presents with worsening of dysphagia Was previously on pured diet but has not been able to swallow since discharge from hospital on 07/02/20 Swallow eval was done at the ED and patient failed Has no new focal neurologic deficits Likely due to progression of underlying oropharyngeal dysphagia Failed MBSS; high risk for aspiration all consistencies. Recommend alternate means of nutrition. Speech therapy is consulted for continued therapy sessions. Aspiration precaution Continue gentle IVF. Currently receiving TPN for nutrition Will discuss w/ Family recommendations for PEG vs Hospice w/ pleasure feeds. Determination is likely dependent upon planned biopsy. (3) Pancoast tumor of left lung Is this a current diagnosis for this admission?: Yes Plan: There is no neck swelling however this will likely explain patient's left upper extremity swelling. There is no numbness or tingling. Primary plan per oncology. Dr. Arora is consulted. Plans for liver biopsy tomorrow. (4) Bladder cancer Qualifiers: Bladder location: unspecified site Qualified Code(s): C67.9 - Malignant neoplasm of bladder, unspecified Is this a current diagnosis for this admission?: Yes Plan: Primary management per Oncology. Dr. Arora is consulted. (5) Hypertension Is this a current diagnosis for this admission?: Yes Plan: Currently NPO related to failed MBSS. Start Clonidine transdermal patch. IV Vasotec as needed for blood pressure control. (6) Right hip pain Is this a current diagnosis for this admission?: Yes Plan: Due to his osseous lesion Analgesics as needed Nonpharmocological interventions for pain. Primary management per Oncology. (7) Urinary tract infection Qualifiers: Urinary tract infection type: site unspecified Hematuria presence: without hematuria Qualified Code(s): N39.0 - Urinary tract infection, site not specified Is this a current diagnosis for this admission?: Yes Plan: Urinalysis is negative for UTI Urine culture not obtained Blood cultures negative. Received IV Rocephin x4 days (8) History of CVA with residual deficit Is this a current diagnosis for this admission?: Yes Plan: Patient has a history of CVA with residual left-sided weakness Has no new focal neurologic deficit on this presentation P.o. medications have been on hold due to dysphagia Will resume aspirin and statin once able to (9) Poor prognosis Is this a current diagnosis for this admission?: Yes - Time Time Spent with patient: 25-34 minutes Medications reviewed and adjusted accordingly: Yes Anticipated Discharge Disposition: Home with Home Health - vs home w/ hospice Anticipated Discharge Timeframe: TBD
[2020-07-12] MEDS ORDERED: CLONIDINE 0.1 MG/24 HR PATCH.TDWK TD SCH (17:00)
[2020-07-12] MEDS: ENALAPRILAT DIHYDRATE INJ/PF 2.5 MG/2 ML SDV IV PRN (22:55)
[2020-07-13] MEDS: INSULIN REG, HUMAN 100 UNIT/ML 3 ML VIAL (PYX) SUBCUT SCH ×5 (00:44→23:59)
[2020-07-13] MEDS: MORPHINE SULFATE 10 MG/ML INJ IV PRN ×2 (02:39→18:55)
[2020-07-13] MEDS: NORMAL SALINE 1000 ML 1,000 ML IV PRN ×2 (03:43→17:41)
[2020-07-13 07:24] LABS: INTERNATIONAL RATION (INR) 0.96
[2020-07-13 07:34] LABS: ALBUMIN 2.9 g/dL (3.5-5.0); ALKALINE PHOSPHATASE 181 U/L (38-126); ANION GAP 10 (5-19); ASPARTATE AMINO TRANSFERASE 116 U/L (17-59); BILIRUBIN,DIRECT 0.2 mg/dL (0.0-0.4); BILIRUBIN,TOTAL 0.6 mg/dL (0.2-1.3); BLOOD UREA NITROGEN 14 mg/dL (7-20); CARBON DIOXIDE 22 mmol/L (22-30); CHLORIDE 101 mmol/L (98-107); GLUCOSE 101 mg/dL (75-110); PHOSPHORUS 3.1 mg/dL (2.5-4.5); POTASSIUM 4.4 mmol/L (3.6-5.0); TOTAL PROTEIN 6.4 g/dL (6.3-8.2)
[2020-07-13 07:42] LABS: PREALBUMIN 9.6 mg/dL (17.6-36.0)
--- NOTE | 2020-07-13 08:02 | PDOC PROGRESS REPORT ---
Subjective Date:: 07/13/20 Subjective:: Niece had a long discussion with family as well as the patient on Monday afternoon. Later, she told us that patient and family wanted to go ahead with the liver biopsy which is planned for today. Patient did get up with PT on Monday but has not really gotten out of bed since then. Seems to be weaker. Reason For Visit: DYSPHAGIA,UTI,SEVERE PROTEIN CALORI MALNUTRITION, Physical Exam Vital Signs: Temp Pulse Resp BP Pulse Ox 97.8 F 109 H 20 164/75 H 99 07/12/20 23:48 07/12/20 23:48 07/12/20 23:48 07/12/20 23:48 07/12/20 23:48 Intake & Output 07/12/20 07/13/20 07/14/20 06:59 06:59 06:59 Intake Total 943 0 Output Total 0 Balance 943 2049 Weight 30.1 kg 30.5 kg General appearance: PRESENT: no acute distress, well-developed, well-nourished Head exam: PRESENT: atraumatic, normocephalic Eye exam: PRESENT: conjunctiva pink, EOMI, PERRLA. ABSENT: scleral icterus Ear exam: PRESENT: normal external ear exam Mouth exam: PRESENT: moist, tongue midline Neck exam: ABSENT: carotid bruit, JVD, lymphadenopathy, thyromegaly Respiratory exam: PRESENT: clear to auscultation pau. ABSENT: rales, rhonchi, wheezes Cardiovascular exam: PRESENT: RRR. ABSENT: diastolic murmur, rubs, systolic murmur Pulses: PRESENT: normal dorsalis pedis pul Vascular exam: PRESENT: normal capillary refill GI/Abdominal exam: PRESENT: normal bowel sounds, soft. ABSENT: distended, gua rding, mass, organolmegaly, rebound, tenderness Rectal exam: PRESENT: deferred Extremities exam: PRESENT: full ROM. ABSENT: calf tenderness, clubbing, pedal edema Neurological exam: PRESENT: alert, awake, oriented to person, oriented to place, oriented to time, oriented to situation, CN II-XII grossly intact. ABSENT: cinthya r sensory deficit Psychiatric exam: PRESENT: appropriate affect, normal mood. ABSENT: homicidal ideation, suicidal ideation Skin exam: PRESENT: dry, intact, warm. ABSENT: cyanosis, rash Results Laboratory Results: 07/09/20 19:38 07/13/20 06:20 07/13/20 06:20 Sodium 132.9 L Potassium 4.4 Chloride 101 Carbon Dioxide 22 Anion Gap 10 BUN 14 Creatinine 0.48 L Est GFR ( Amer) > 60 Glucose 101 Calcium 9.0 Phosphorus 3.1 Magnesium 2.1 Total Bilirubin 0.6 AST 116 H Alkaline Phosphatase 181 H Total Protein 6.4 Albumin 2.9 L Prealbumin 9.6 L 07/08/20 06:40 Blood Blood Culture - Final NO GROWTH IN 5 DAYS 07/08/20 04:38 Blood Blood Culture - Final NO GROWTH IN 5 DAYS Impressions: Head CT 07/07/20 01:28 IMPRESSION: No acute intracranial abnormality. Areas of old infarct bilaterally with atrophy and small vessel ischemic change TECHNICAL DOCUMENTATION: Quality ID # 436: Final reports with documentation of one or more dose reduction techniques (e.g., Automated exposure control, adjustment of the mA and/or kV according to patient size, use of iterative reconstruction technique) copyright 2011 [employer]- All Rights Reserved Lumbar Spine CT 07/07/20 02:36 IMPRESSION: 1. There is a lytic lesion within the left T12 pedicle with associated slight bowing of the posterior cortex of T12 into the spinal canal and a lytic lesion in the right S1 sacral ala and posterior medial right iliac bone. These are concerning for metastatic disease. 2. Degenerative changes of the lumbar spine as described above with moderate to severe stenosis at L4-L5 and mild stenosis at L3-L4 and L5-S1. There is multilevel bilateral neural foraminal stenosis. Tibia/Fibula X-Ray 07/07/20 02:36 IMPRESSION: Vague area of sclerosis involving the distal fibula on the left. However, this is indeterminate in etiology and clinical significance. This could simply reflect sequelae of old trauma. Osteopenia. No other evidence for osseous abnormality. Chest X-Ray 07/07/20 02:37 IMPRESSION: 1. Persistent right upper lung opacities with pleural base left lung calcification. Venous Doppler Study 07/07/20 07:31 IMPRESSION: NO EVIDENCE DVT OR SVT IN EITHER LEG. Modified Barium Swallow 07/08/20 00:00 IMPRESSION: LARYNGEAL PENETRATION AND ASPIRATION ABOVE. PLEASE SEE SPEECH PATHOLOGIST REPORT FOR OTHER FINDINGS AND RECOMMENDATIONS. PICC Line Insertion 07/09/20 00:00 IMPRESSION: SUCCESSFUL PLACEMENT OF A 5 FR DUAL LUMEN 38 CM PICC IN THE LEFT BASILIC VEIN. Abdomen/Pelvis CT 07/09/20 08:00 IMPRESSION: 1. Suspected liver metastasis. 2. Previously reported bone metastasis. Chest CT 07/09/20 08:00 IMPRESSION: Large left Pancoast tumor. Satellite lesions in the right lower lobe suspicious for metastatic disease. Assessment & Plan - Diagnosis (1) Bladder cancer Qualifiers: Bladder location: unspecified site Qualified Code(s): C67.9 - Malignant neoplasm of bladder, unspecified Is this a current diagnosis for this admission?: Yes Plan: As previously discussed probable metastatic disease with multiple sites of disease, liver biopsy pending today. (2) Dysphagia Qualifiers: Dysphagia type: unspecified Qualified Code(s): R13.10 - Dysphagia, unspecified Is this a current diagnosis for this admission?: Yes Plan: Probably multifactorial, continued on TPN (3) History of CVA with residual deficit Is this a current diagnosis for this admission?: Yes Plan: Probably is contributing to the dysphagia, plan as above (4) Severe protein-calorie malnutrition Is this a current diagnosis for this admission?: Yes Plan: Continue with TPN. - Time Time Spent with patient: 35 or more minutes
[2020-07-13] MEDS ORDERED: AMINO ACIDS 5 %/DEXTROSE 20 % 1,000 ML IV PRN (08:30)
[2020-07-13] MEDS: ASPIRIN 81 MG TABLET, CHEWABLE PO SCH (09:28)
[2020-07-13] MEDS ORDERED: FENTANYL CITRATE INJ/PF 100 MCG/2 ML AMPUL ONE (09:41)
[2020-07-13] MEDS ORDERED: MIDAZOLAM 2 MG/2 ML INJ ONE (09:41)
[2020-07-13] MEDS ORDERED: FAT EMULSIONS 250 ML IV SCH (10:00)
--- NOTE | 2020-07-13 13:52 | RADIOLOGY REPORT (SQ) ---
EXAM DESCRIPTION: INTRO/GI TUBE W/FLUORO IMAGES COMPLETED DATE/TIME: 07/13/2020 11:04 am REASON FOR STUDY: dysphagia R78.81 BACTEREMIA K82.8 OTHER SPECIFIED DISEASES OF GALLBLADDER R07.9 CHEST PAIN, UNSPECIFIED COMPARISON: None. TECHNIQUE: Integrated into the Findings. RADIATION DOSE: FT: 7.6 minutes. 2 images saved to PACS. LIMITATIONS: Patient uncooperative. FINDINGS: The patient was brought to the fluoroscopy room and placed supine on the fluoroscopy table . A Dobhoff tube was advanced through the right nostril through the stomach and ending in the antrum of the stomach. The catheter could not be advanced beyond this point. Approximately 40 mL of non io tiffanie contrast was injected through the catheter to confirm placement. A fluoroscopic spot film was vidal ed to PACs demonstrating catheter tip within the gastric antrum. KUB is recommended in the a.m. to as sess for migration of the catheter into the duodenum. IMPRESSION: Dobhoff tube placement with catheter tip in the gastric antrum. Recommend KUB in the a. m. to assess for migration of catheter into the duodenum. COMMENT: Quality ID [id number]: Final reports for procedures using fluoroscopy that document radiation exp osure indices, or exposure time and number of fluorographic images (if radiation exposure indices are not available) TECHNICAL DOCUMENTATION: JOBD ID: [id number] 2010 [employer]- All Rights Reserved Reading location - IP/workstation name: [email or web address]
[2020-07-13] MEDS ORDERED: ALTEPLASE INJ 2 MG VIAL (CATH CLEARANCE) IV ONE (15:30)
--- NOTE | 2020-07-13 15:49 | RADIOLOGY REPORT (SQ) ---
EXAM DESCRIPTION: U/S BIOPSY LIVER IMAGES COMPLETED DATE/TIME: 07/13/2020 10:41 am REASON FOR STUDY: Evaluation of cancer metastasis. R78.81 BACTEREMIA K82.8 OTHER SPECIFIED DISEAS ES OF GALLBLADDER R07.9 CHEST PAIN, UNSPECIFIED COMPARISON: CT of the abdomen and pelvis from 07/09/2020. LIMITATIONS: None. PROCEDURE: The procedure, risks, benefits, and alternatives were discussed with the patient in the p reprocedural area, and all questions were answered. Informed consent was obtained verbally and in wri ting. The patient was then brought to the ultrasound suite, positioned supine on a gurney, and a time-out w as performed. After that, selected grayscale and color Doppler images of the hypoechoic lesions in t he right hepatic lobe were obtained. Based on review of the images an appropriate access site was diane ected on the skin. The area around the selected access site was then prepped and draped with 2% chlorhexidine utilizing standard sterile technique. After that, the access site was infiltrated with 1% lidocaine and a skin incision was made with a #11 blade. A 17 gauge coaxial needle was then advanced through the skin inc ision and into one the hypoechoic lesions in the right hepatic lobe utilizing sonographic guidance. A fter that, the inner stylet of the coaxial needle was removed and 3 18 gauge core samples were obtain ed of the lesion - the samples were collected and submitted to cytopathology in formalin. Then, as the coaxial needle was removed, the biopsy track was embolized with Gelfoam. After the coaxial needle was removed selected grayscale and color Doppler images of the biopsied lesi on were repeated and reviewed ; the images demonstrated no acute biopsy-related complication. 25 micrograms of fentanyl was administered at the direction of the performing physician by a register ed nurse. At the end of the procedure the patient's condition was unchanged from the preprocedural baseline. Documentation of [id number] time the performing proceduralist spent monitoring the patient: 15 nima jose. FINDINGS: Integrated into the Technique. IMPRESSION: Successful ultrasound-guided biopsy of a hypoechoic hepatic lesion. COMMENT: Patient medication list reviewed: Yes- Quality ID# [id number]:Eligible professional attests to doc umenting in the medical record they obtained, updated, or reviewed the patient's current medications. TECHNICAL DOCUMENTATION: JOB ID: [id number] 2010 [employer]- All Rights Reserved Reading location - IP/workstation name: [email or web address]
--- NOTE | 2020-07-13 16:21 | RADIOLOGY REPORT (SQ) ---
EXAM DESCRIPTION: INTRO LONG GI TUBE (MILLAB) COMPLETE DATE/TIME: 07/13/2020 11:04 am REASON FOR STUDY: DYSPHAGIA R78.81 BACTEREMIA K82.8 OTHER SPECIFIED DISEASES OF GALLBLADDER R07.9 CHEST PAIN, UNSPECIFIED FINDINGS: Please see combined report for performance of procedure and radiologic supervision and int erpretation. IMPRESSION: Please see combined report for performance of procedure and radiologic supervision and i nterpretation. Reading location - IP/workstation name: [email or web address]
--- NOTE | 2020-07-13 17:40 | PDOC PROGRESS REPORT ---
Subjective Date:: 07/13/20 Subjective:: The patient is a 74 year old male with a past medical history of bladder cancer with metastasis, hypertension, hyperlipidemia, and CVA with residual left-sided weakness who was admitted 07/07/2020 with Dysphagia. Patient was seen on afternoon rounds. He was found resting in bed, comfortably, on room air. He is orientated to self only; smiles and follows me with his eyes but does not interact with me otherwise. ROS is limited r/t mentation. He does appear to be comfortably and is not noted to be in any acute distress at this time. Met w/ patients primary home care specialist/niece, Lyndsay, at bedside. Discussed nutritional needs; leaning toward PEG prior to discharge. Agreeable to dobhoff w/ Tube Feeds at this time. Wishes to discuss goals of care w/ family prior to making further decisions. No concerns per nursing. Reason For Visit: DYSPHAGIA,UTI,SEVERE PROTEIN CALORI MALNUTRITION, Physical Exam Vital Signs: Temp Pulse Resp BP Pulse Ox 97.5 F 93 16 154/88 H 91 L 07/13/20 11:57 07/13/20 11:57 07/13/20 11:57 07/13/20 11:57 07/13/20 11:57 Intake & Output 07/12/20 07/13/20 07/14/20 06:59 06:59 06:59 Intake Total 943 2049 30 Output Total 0 Balance 943 2049 30 Weight 30.1 kg 30.5 kg 35.7 kg General appearance: PRESENT: no acute distress, thin - Cachectic, well-developed Head exam: PRESENT: atraumatic, normocephalic Eye exam: PRESENT: conjunctiva pink, EOMI, PERRLA. ABSENT: scleral icterus Mouth exam: PRESENT: moist, tongue midline Teeth exam: PRESENT: poor dentation Respiratory exam: PRESENT: clear to auscultation pau, symmetrical, unlabored, other - Room air. ABSENT: rales, rhonchi, wheezes Cardiovascular exam: PRESENT: RRR. ABSENT: diastolic murmur, rubs, systolic murmur Pulses: PRESENT: normal dorsalis pedis pul Vascular exam: PRESENT: normal capillary refill GI/Abdominal exam: PRESENT: normal bowel sounds, soft. ABSENT: distended, guarding, mass, organolmegaly, rebound, tenderness Rectal exam: PRESENT: deferred Extremities exam: PRESENT: full ROM - Moves all extremities spontaneously. ABSENT: calf tenderness, clubbing, pedal edema Neurological exam: PRESENT: alert, awake, oriented to person, CN II-XII grossly intact, other - Intermittent confusion; at baseline per family. ABSENT: motor sensory deficit Psychiatric exam: PRESENT: appropriate affect, normal mood. ABSENT: homicidal ideation, suicidal ideation Skin exam: PRESENT: dry, intact, warm. ABSENT: cyanosis, rash Results Laboratory Results: 07/09/20 19:38 07/13/20 06:20 07/13/20 06:20 Sodium 132.9 L Potassium 4.4 Chloride 101 Carbon Dioxide 22 Anion Gap 10 BUN 14 Creatinine 0.48 L Est GFR ( Amer) > 60 Glucose 101 Calcium 9.0 Phosphorus 3.1 Magnesium 2.1 Total Bilirubin 0.6 AST 116 H Alkaline Phosphatase 181 H Total Protein 6.4 Albumin 2.9 L Prealbumin 9.6 L 07/08/20 06:40 Blood Blood Culture - Final NO GROWTH IN 5 DAYS 07/08/20 04:38 Blood Blood Culture - Final NO GROWTH IN 5 DAYS Impressions: Head CT 07/07/20 01:28 IMPRESSION: No acute intracranial abnormality. Areas of old infarct bilaterally with atrophy and small vessel ischemic change TECHNICAL DOCUMENTATION: Quality ID # 436: Final reports with documentation of one or more dose reduction techniques (e.g., Automated exposure control, adjustment of the mA and/or kV according to patient size, use of iterative reconstruction technique) copyright 2011 [employer]- All Rights Reserved Lumbar Spine CT 07/07/20 02:36 IMPRESSION: 1. There is a lytic lesion within the left T12 pedicle with associated slight bowing of the posterior cortex of T12 into the spinal canal and a lytic lesion in the right S1 sacral ala and posterior medial right iliac bone. These are concerning for metastatic disease. 2. Degenerative changes of the lumbar spine as described above with moderate to severe stenosis at L4-L5 and mild stenosis at L3-L4 and L5-S1. There is multilevel bilateral neural foraminal stenosis. Tibia/Fibula X-Ray 07/07/20 02:36 IMPRESSION: Vague area of sclerosis involving the distal fibula on the left. However, this is indeterminate in etiology and clinical significance. This could simply reflect sequelae of old trauma. Osteopenia. No other evidence for osseous abnormality. Chest X-Ray 07/07/20 02:37 IMPRESSION: 1. Persistent right upper lung opacities with pleural base left lung calcification. Venous Doppler Study 07/07/20 07:31 IMPRESSION: NO EVIDENCE DVT OR SVT IN EITHER LEG. Modified Barium Swallow 07/08/20 00:00 IMPRESSION: LARYNGEAL PENETRATION AND ASPIRATION ABOVE. PLEASE SEE SPEECH PATHOLOGIST REPORT FOR OTHER FINDINGS AND RECOMMENDATIONS. PICC Line Insertion 07/09/20 00:00 IMPRESSION: SUCCESSFUL PLACEMENT OF A 5 FR DUAL LUMEN 38 CM PICC IN THE LEFT BASILIC VEIN. Abdomen/Pelvis CT 07/09/20 08:00 IMPRESSION: 1. Suspected liver metastasis. 2. Previously reported bone metastasis. Chest CT 07/09/20 08:00 IMPRESSION: Large left Pancoast tumor. Satellite lesions in the right lower lobe suspicious for metastatic disease. Gastrostomy Tube Placement 07/13/20 00:00 IMPRESSION: Please see combined report for performance of procedure and radiologic supervision and interpretation. Guidance Fluoroscopy 07/13/20 00:00 IMPRESSION: Dobhoff tube placement with catheter tip in the gastric antrum. Recommend KUB in the a.m. to assess for migration of catheter into the duodenum. Liver Biopsy Ultrasound 07/13/20 00:00 IMPRESSION: Successful ultrasound-guided biopsy of a hypoechoic hepatic lesion. Assessment and Plan - Diagnosis (1) Severe protein-calorie malnutrition Is this a current diagnosis for this admission?: Yes Plan: BMI 13.5 Likely secondary to malignancy patient is cachectic emaciated and malnourished. Discussed with family today; strongly leaning towards PEG tube for long-term nutrition needs. Advised the importance of resuming enteral nutrition to prevent GI complications. They are agreeable to Dobbhoff placement and starting continuous tube feeds. Patient's niece does wish to discuss PEG tube with family members prior to formal decision. Dobbhoff placed. Per radiology, follow-up KUB in the morning to check placement. Registered dietitian consulted. Start tube feeds at 20 mL/hour. Continue gentle IV fluids Aspiration precautions. Will discuss w/ family again tomorrow; regardless of biopsy results, due to the patient's high risk of aspiration, the patient will require PEG for long-term nutrition or transition to hospice with pleasure feeds. (2) Dysphagia Qualifiers: Dysphagia type: unspecified Qualified Code(s): R13.10 - Dysphagia, unspecified Is this a current diagnosis for this admission?: Yes Plan: Patient presents with worsening of dysphagia Was previously on pured diet but has not been able to swallow since discharge from hospital on 07/02/20 Swallow eval was done at the ED and patient failed Has no new focal neurologic deficits Likely due to progression of underlying oropharyngeal dysphagia Failed MBSS; high risk for aspiration all consistencies. Recommend alternate means of nutrition. Speech therapy is consulted for continued therapy sessions. Aspiration precaution Continue gentle IVF. Dobhoff with TF at this time. TPN is discontinued. Will discuss further w/ Family recommendations for PEG vs Hospice w/ pleasure feeds. (3) Pancoast tumor of left lung Is this a current diagnosis for this admission?: Yes Plan: There is no neck swelling however this will likely explain patient's left upper extremity swelling. There is no numbness or tingling. Primary plan per oncology. Dr. Arora is consulted. Liver biopsy completed this morning. (4) Bladder cancer Qualifiers: Bladder location: unspecified site Qualified Code(s): C67.9 - Malignant neoplasm of bladder, unspecified Is this a current diagnosis for this admission?: Yes Plan: Primary management per Oncology. Dr. Arora is consulted. (5) Hypertension Is this a current diagnosis for this admission?: Yes Plan: Currently NPO related to failed MBSS. Start Clonidine transdermal patch. IV Vasotec as needed for blood pressure control. (6) Right hip pain Is this a current diagnosis for this admission?: Yes Plan: Due to his osseous lesion Analgesics as needed Nonpharmocological interventions for pain. Primary management per Oncology. (7) Urinary tract infection Qualifiers: Urinary tract infection type: site unspecified Hematuria presence: without hematuria Qualified Code(s): N39.0 - Urinary tract infection, site not specified Is this a current diagnosis for this admission?: Yes Plan: Urinalysis is negative for UTI Urine culture not obtained Blood cultures negative. Received IV Rocephin x4 days (8) History of CVA with residual deficit Is this a current diagnosis for this admission?: Yes Plan: Patient has a history of CVA with residual left-sided weakness Has no new focal neurologic deficit on this presentation P.o. medications have been on hold due to dysphagia Will resume aspirin and statin once able to (9) Poor prognosis Is this a current diagnosis for this admission?: Yes Plan: Unfortunately patient's prognosis is pretty dismal - Time Time Spent with patient: 35 or more minutes Medications reviewed and adjusted accordingly: Yes Anticipated Discharge Disposition: Home with Home Health - vs home w/ hospice Anticipated Discharge Timeframe: tbd
[2020-07-14] MEDS: ENALAPRILAT DIHYDRATE INJ/PF 2.5 MG/2 ML SDV IV PRN (05:12)
[2020-07-14 05:28] LABS: HEMATOCRIT 24.9 % (37.9-51.0); HEMOGLOBIN 8.3 g/dL (13.5-17.0); MEAN CORPUSCULAR HEMOGLOBIN 26.6 pg (27.0-33.4); MEAN CORPUSCULAR HGB CONC 33.3 g/dL (32.0-36.0); MEAN CORPUSCULAR VOLUME 80 fl (80-97); PLATELET COUNT 277 10^3/uL (150-450); RED BLOOD COUNT 3.11 10^6/uL (4.35-5.55); RED CELL DISTRIBUTION WIDTH 17.8 % (11.5-14.0); WHITE BLOOD COUNT 12.5 10^3/uL (4.0-10.5)
[2020-07-14 05:48] LABS: ANION GAP 6 (5-19); BLOOD UREA NITROGEN 19 mg/dL (7-20); CALCIUM 8.7 mg/dL (8.4-10.2); CARBON DIOXIDE 26 mmol/L (22-30); CHLORIDE 104 mmol/L (98-107); GLUCOSE 87 mg/dL (75-110)
[2020-07-14] MEDS: INSULIN REG, HUMAN 100 UNIT/ML 3 ML VIAL (PYX) SUBCUT SCH ×3 (07:29→18:17)
--- NOTE | 2020-07-14 08:23 | PDOC PROGRESS REPORT ---
Subjective Date:: 07/14/20 Subjective:: Patient seems to be tolerating Dobbhoff feeds over the last 12 hours, per nursing is almost to goal. Not much residuals. Liver biopsy also done and pending results. Reason For Visit: DYSPHAGIA,UTI,SEVERE PROTEIN CALORI MALNUTRITION, Physical Exam Vital Signs: Temp Pulse Resp BP Pulse Ox 97.7 F 72 22 H 187/82 H 100 07/13/20 23:20 07/14/20 05:12 07/13/20 19:43 07/14/20 05:12 07/13/20 23:20 Intake & Output 07/13/20 07/14/20 07/15/20 06:59 06:59 06:59 Intake Total 2049 103 Output Total 0 Balance 2049 103 Weight 30.5 kg 31.4 kg General appearance: PRESENT: no acute distress, well-developed, well-nourished Head exam: PRESENT: atraumatic, normocephalic Eye exam: PRESENT: conjunctiva pink, EOMI, PERRLA. ABSENT: scleral icterus Ear exam: PRESENT: normal external ear exam Mouth exam: PRESENT: moist, tongue midline Neck exam: ABSENT: carotid bruit, JVD, lymphadenopathy, thyromegaly Respiratory exam: PRESENT: clear to auscultation pau. ABSENT: rales, rhonchi, wheezes Cardiovascular exam: PRESENT: RRR. ABSENT: diastolic murmur, rubs, systolic murmur Pulses: PRESENT: normal dorsalis pedis pul Vascular exam: PRESENT: normal capillary refill GI/Abdominal exam: PRESENT: normal bowel sounds, soft. ABSENT: distended, guarding, mass, organolmegaly, rebound, tenderness Rectal exam: PRESENT: deferred Extremities exam: PRESENT: full ROM. ABSENT: calf tenderness, clubbing, pedal edema Neurological exam: PRESENT: alert, awake, oriented to person, oriented to place, oriented to time, oriented to situation, CN II-XII grossly intact. ABSENT: motor sensory deficit Psychiatric exam: PRESENT: appropriate affect, normal mood. ABSENT: homicidal ideation, suicidal ideation Skin exam: PRESENT: dry, intact, warm. ABSENT: cyanosis, rash Results Laboratory Results: 07/14/20 05:05 07/14/20 05:05 07/14/20 07/14/20 05:05 05:05 WBC 12.5 H RBC 3.11 L Hgb 8.3 L Hct 24.9 L MCV 80 MCH 26.6 L MCHC 33.3 RDW 17.8 H Plt Count 277 Sodium 136.0 L Potassium 4.0 Chloride 104 Carbon Dioxide 26 Anion Gap 6 BUN 19 Creatinine 0.58 Est GFR ( Amer) > 60 Glucose 87 Calcium 8.7 07/08/20 06:40 Blood Blood Culture - Final NO GROWTH IN 5 DAYS 07/08/20 04:38 Blood Blood Culture - Final NO GROWTH IN 5 DAYS Impressions: Head CT 07/07/20 01:28 IMPRESSION: No acute intracranial abnormality. Areas of old infarct bilaterally with atrophy and small vessel ischemic change TECHNICAL DOCUMENTATION: Quality ID # [id number]: Final reports with documentation of one or more dose reduction techniques (e.g., Automated exposure control, adjustment of the mA and/or kV according to patient size, use of iterative reconstruction technique) copyright 2011 [employer]- All Rights Reserved Lumbar Spine CT 07/07/20 02:36 IMPRESSION: 1. There is a lytic lesion within the left T12 pedicle with associated slight bowing of the posterior cortex of T12 into the spinal canal and a lytic lesion in the right S1 sacral ala and posterior medial right iliac bone. These are concerning for metastatic disease. 2. Degenerative changes of the lumbar spine as described above with moderate to severe stenosis at L4-L5 and mild stenosis at L3-L4 and L5-S1. There is multilevel bilateral neural foraminal stenosis. Tibia/Fibula X-Ray 07/07/20 02:36 IMPRESSION: Vague area of sclerosis involving the distal fibula on the left. However, this is indeterminate in etiology and clinical significance. This could simply reflect sequelae of old trauma. Osteopenia. No other evidence for osseous abnormality. Chest X-Ray 07/07/20 02:37 IMPRESSION: 1. Persistent right upper lung opacities with pleural base left lung calcification. Venous Doppler Study 07/07/20 07:31 IMPRESSION: NO EVIDENCE DVT OR SVT IN EITHER LEG. Modified Barium Swallow 07/08/20 00:00 IMPRESSION: LARYNGEAL PENETRATION AND ASPIRATION ABOVE. PLEASE SEE SPEECH PATHOLOGIST REPORT FOR OTHER FINDINGS AND RECOMMENDATIONS. PICC Line Insertion 07/09/20 00:00 IMPRESSION: SUCCESSFUL PLACEMENT OF A 5 FR DUAL LUMEN 38 CM PICC IN THE LEFT BASILIC VEIN. Abdomen/Pelvis CT 07/09/20 08:00 IMPRESSION: 1. Suspected liver metastasis. 2. Previously reported bone metastasis. Chest CT 07/09/20 08:00 IMPRESSION: Large left Pancoast tumor. Satellite lesions in the right lower lobe suspicious for metastatic disease. Gastrostomy Tube Placement 07/13/20 00:00 IMPRESSION: Please see combined report for performance of procedure and radiologic supervision and interpretation. Guidance Fluoroscopy 07/13/20 00:00 IMPRESSION: Dobhoff tube placement with catheter tip in the gastric antrum. Recommend KUB in the a.m. to assess for migration of catheter into the duodenum. Liver Biopsy Ultrasound 07/13/20 00:00 IMPRESSION: Successful ultrasound-guided biopsy of a hypoechoic hepatic lesion. Assessment & Plan - Diagnosis (1) Bladder cancer Qualifiers: Bladder location: unspecified site Qualified Code(s): C67.9 - Malignant neoplasm of bladder, unspecified Is this a current diagnosis for this admission?: Yes Plan: Biopsy pending, will follow (2) Dysphagia Qualifiers: Dysphagia type: unspecified Qualified Code(s): R13.10 - Dysphagia, unspecified Is this a current diagnosis for this admission?: Yes Plan: Continue with Dobbhoff feeds (3) History of CVA with residual deficit Is this a current diagnosis for this admission?: Yes Plan: Plan as above (4) Severe protein-calorie malnutrition Is this a current diagnosis for this admission?: Yes Plan: Tube feeds initiated, ultimately would benefit from PEG tube placement but await biopsy results and final family decisions. - Time Time Spent with patient: 35 or more minutes
[2020-07-14] MEDS: NORMAL SALINE 1000 ML 1,000 ML IV PRN (08:56)
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
[2020-07-14] MEDS: ASPIRIN 81 MG TABLET, CHEWABLE PO SCH (10:29)
[2020-07-14] MEDS ORDERED: CLONIDINE 0.2 MG/24 HR PATCH.TDWK TD SCH (11:00)
[2020-07-14] MEDS ORDERED: SCOPOLAMINE HYDROBROMIDE 1.5 MG PATCH.TD72 TD ONE (17:15)
[2020-07-14] MEDS ORDERED: NORMAL SALINE 1000 ML 1,000 ML IV PRN (18:52)
--- NOTE | 2020-07-14 18:56 | PDOC PROGRESS REPORT ---
Subjective Date:: 07/14/20 Subjective:: The patient is a 74 year old male with a past medical history of bladder cancer with metastasis, hypertension, hyperlipidemia, and CVA with residual left-sided weakness who was admitted 07/07/2020 with Dysphagia. Patient was seen on morning rounds. He was found resting in bed, comfortably, on room air. He is orientated to self only; does answer a few yes or no questions. Complains of generalized pain (back, arms, legs). ROS is otherwise limited r/t mentation. He does appear to be comfortably and is not noted to be in any acute distress at this time. Met w/ patient's primary animal care service worker/niece, Lyndsay, at bedside. Discussed nutritional needs; continues to lean toward PEG. However, does not want to make a decision until after she speaks to Dr. Arora. Thus far, patient is tolerating TF w/o high residuals or nausea. No concerns per nursing. Reason For Visit: DYSPHAGIA,UTI,SEVERE PROTEIN CALORI MALNUTRITION, Physical Exam Vital Signs: Temp Pulse Resp BP Pulse Ox 97.4 F 99 20 148/70 H 100 07/14/20 15:10 07/14/20 15:10 07/14/20 15:10 07/14/20 15:10 07/14/20 15:10 Intake & Output 07/13/20 07/14/20 07/15/20 06:59 06:59 06:59 Intake Total 2049 1030 1000 Output Total 0 Balance 2049 1030 1000 Weight 30.5 kg 31.4 kg 31.4 kg General appearance: PRESENT: no acute distress, thin - Cachectic, well-developed Head exam: PRESENT: atraumatic, normocephalic Eye exam: PRESENT: conjunctiva pink, EOMI, PERRLA. ABSENT: scleral icterus Mouth exam: PRESENT: moist, tongue midline Teeth exam: PRESENT: poor dentation Respiratory exam: PRESENT: clear to auscultation pau, symmetrical, unlabored, other - Room air. ABSENT: rales, rhonchi, wheezes Cardiovascular exam: PRESENT: RRR. ABSENT: diastolic murmur, rubs, systolic murmur Vascular exam: PRESENT: normal capillary refill GI/Abdominal exam: PRESENT: normal bowel sounds, soft. ABSENT: distended, guarding, mass, organolmegaly, rebound, tenderness Rectal exam: PRESENT: deferred Extremities exam: PRESENT: full ROM - With all extremity spontaneously. ABSENT: calf tenderness, clubbing, pedal edema Neurological exam: PRESENT: alert, awake, oriented to person, CN II-XII grossly intact, other - Intermittent confusion; at baseline per family. ABSENT: oriented to place, oriented to time, oriented to situation, motor sensory deficit Psychiatric exam: PRESENT: appropriate affect, normal mood. ABSENT: homicidal ideation, suicidal ideation Skin exam: PRESENT: dry, intact, warm. ABSENT: cyanosis, rash Results Laboratory Results: 07/14/20 05:05 07/14/20 05:05 07/14/20 07/14/20 05:05 05:05 WBC 12.5 H RBC 3.11 L Hgb 8.3 L Hct 24.9 L MCV 80 MCH 26.6 L MCHC 33.3 RDW 17.8 H Plt Count 277 Sodium 136.0 L Potassium 4.0 Chloride 104 Carbon Dioxide 26 Anion Gap 6 BUN 19 Creatinine 0.58 Est GFR ( Amer) > 60 Glucose 87 Calcium 8.7 Impressions: Head CT 07/07/20 01:28 IMPRESSION: No acute intracranial abnormality. Areas of old infarct bilaterally with atrophy and small vessel ischemic change TECHNICAL DOCUMENTATION: Quality ID # 436: Final reports with documentation of one or more dose reduction techniques (e.g., Automated exposure control, adjustment of the mA and/or kV according to patient size, use of iterative reconstruction technique) copyright 2011 [employer]- All Rights Reserved Lumbar Spine CT 07/07/20 02:36 IMPRESSION: 1. There is a lytic lesion within the left T12 pedicle with associated slight bowing of the posterior cortex of T12 into the spinal canal and a lytic lesion in the right S1 sacral ala and posterior medial right iliac bone. These are concerning for metastatic disease. 2. Degenerative changes of the lumbar spine as described above with moderate to severe stenosis at L4-L5 and mild stenosis at L3-L4 and L5-S1. There is multilevel bilateral neural foraminal stenosis. Tibia/Fibula X-Ray 07/07/20 02:36 IMPRESSION: Vague area of sclerosis involving the distal fibula on the left. However, this is indeterminate in etiology and clinical significance. This could simply reflect sequelae of old trauma. Osteopenia. No other evidence for osseous abnormality. Chest X-Ray 07/07/20 02:37 IMPRESSION: 1. Persistent right upper lung opacities with pleural base left lung calcification. Venous Doppler Study 07/07/20 07:31 IMPRESSION: NO EVIDENCE DVT OR SVT IN EITHER LEG. Modified Barium Swallow 07/08/20 00:00 IMPRESSION: LARYNGEAL PENETRATION AND ASPIRATION ABOVE. PLEASE SEE SPEECH PATHOLOGIST REPORT FOR OTHER FINDINGS AND RECOMMENDATIONS. PICC Line Insertion 07/09/20 00:00 IMPRESSION: SUCCESSFUL PLACEMENT OF A 5 FR DUAL LUMEN 38 CM PICC IN THE LEFT BASILIC VEIN. Abdomen/Pelvis CT 07/09/20 08:00 IMPRESSION: 1. Suspected liver metastasis. 2. Previously reported bone metastasis. Chest CT 07/09/20 08:00 IMPRESSION: Large left Pancoast tumor. Satellite lesions in the right lower lobe suspicious for metastatic disease. Gastrostomy Tube Placement 07/13/20 00:00 IMPRESSION: Please see combined report for performance of procedure and radiologic supervision and interpretation. Guidance Fluoroscopy 07/13/20 00:00 IMPRESSION: Dobhoff tube placement with catheter tip in the gastric antrum. Recommend KUB in the a.m. to assess for migration of catheter into the duodenum. Liver Biopsy Ultrasound 07/13/20 00:00 IMPRESSION: Successful ultrasound-guided biopsy of a hypoechoic hepatic lesion. KUB X-Ray 07/14/20 07:00 IMPRESSION: Nasoenteric feeding tube tip at the pylorus region. Small amount of contrast given during feeding tube placement 07/13/2020 is still in the stomach fundus Assessment and Plan - Diagnosis (1) Severe protein-calorie malnutrition Is this a current diagnosis for this admission?: Yes Plan: BMI 11.9 Likely secondary to malignancy patient is cachectic emaciated and malnourished. Discussed with family today; strongly leaning towards PEG tube for long-term nutrition needs. Advised the importance of resuming enteral nutrition to prevent GI complications. They are agreeable to Dobbhoff placement and starting continuous tube feeds. Patient's niece does wish to discuss PEG tube with family members prior to formal decision. Dobbhoff placed. Registered dietitian consulted; continue tube feeds. Nearly at goal and tolerating well. IV fluids to KVO. Aspiration precautions. Patient's niece continues to lean towards PEG tube for long-term nutrition needs, however, does not wish to make a decision or provide consent until after she discusses with Dr. Arora. (2) Dysphagia Qualifiers: Dysphagia type: unspecified Qualified Code(s): R13.10 - Dysphagia, unspecified Is this a current diagnosis for this admission?: Yes Plan: Patient presents with worsening of dysphagia Was previously on pured diet but has not been able to swallow since discharge from hospital on 07/02/20 Swallow eval was done at the ED and patient failed Has no new focal neurologic deficits Likely due to progression of underlying oropharyngeal dysphagia Failed MBSS; high risk for aspiration all consistencies. Recommend alternate means of nutrition. Speech therapy is consulted for continued therapy sessions. Aspiration precaution Dobhoff with TF at this time. (3) Pancoast tumor of left lung Is this a current diagnosis for this admission?: Yes Plan: There is no neck swelling however this will likely explain patient's left upper extremity swelling. There is no numbness or tingling. Primary plan per oncology. Dr. Arora is consulted. Liver biopsy completed this morning. (4) Bladder cancer Qualifiers: Bladder location: unspecified site Qualified Code(s): C67.9 - Malignant neoplasm of bladder, unspecified Is this a current diagnosis for this admission?: Yes Plan: Primary management per Oncology. Dr. Arora is consulted. (5) Hypertension Is this a current diagnosis for this admission?: Yes Plan: Currently NPO related to failed MBSS. Increase clonidine transdermal patch; improved blood pressure control this afternoon. IV Vasotec as needed for blood pressure control. (6) Right hip pain Is this a current diagnosis for this admission?: Yes Plan: Due to his osseous lesion Analgesics as needed Nonpharmocological interventions for pain. Primary management per Oncology. (7) Urinary tract infection Qualifiers: Urinary tract infection type: site unspecified Hematuria presence: without hematuria Qualified Code(s): N39.0 - Urinary tract infection, site not specified Is this a current diagnosis for this admission?: Yes Plan: Urinalysis is negative for UTI Urine culture not obtained Blood cultures negative. Received IV Rocephin x4 days (8) History of CVA with residual deficit Is this a current diagnosis for this admission?: Yes Plan: Patient has a history of CVA with residual left-sided weakness Has no new focal neurologic deficit on this presentation P.o. medications have been on hold due to dysphagia Will resume aspirin and statin once able to (9) Poor prognosis Is this a current diagnosis for this admission?: Yes Plan: Unfortunately patient's prognosis is pretty dismal - Time Time Spent with patient: 35 or more minutes Medications reviewed and adjusted accordingly: Yes Anticipated Discharge Disposition: Home with Home Health - vs. home with home health Anticipated Discharge Timeframe: within 48 hours
[2020-07-14] MEDS: MORPHINE SULFATE 10 MG/ML INJ IV PRN (19:45)
[2020-07-15] MEDS: INSULIN REG, HUMAN 100 UNIT/ML 3 ML VIAL (PYX) SUBCUT SCH ×4 (00:11→18:24)
[2020-07-15] MEDS: ENALAPRILAT DIHYDRATE INJ/PF 2.5 MG/2 ML SDV IV PRN (05:33)
[2020-07-15 07:44] LABS: HEMATOCRIT 23.5 % (37.9-51.0); MEAN CORPUSCULAR HEMOGLOBIN 27.3 pg (27.0-33.4); MEAN CORPUSCULAR HGB CONC 33.8 g/dL (32.0-36.0); MEAN CORPUSCULAR VOLUME 81 fl (80-97); PLATELET COUNT 294 10^3/uL (150-450); RED BLOOD COUNT 2.91 10^6/uL (4.35-5.55); RED CELL DISTRIBUTION WIDTH 18.4 % (11.5-14.0); WHITE BLOOD COUNT 16.2 10^3/uL (4.0-10.5)
--- NOTE | 2020-07-15 07:54 | PDOC PROGRESS REPORT ---
Subjective Date:: 07/15/20 Subjective:: Received final pathology yesterday, we will discuss this further with family today, patient seems to be tolerating tube feeds well, still has not gotten up and asked nursing to try and get physical therapy to get him up to a chair at least Reason For Visit: DYSPHAGIA,UTI,SEVERE PROTEIN CALORI MALNUTRITION, Physical Exam Vital Signs: Temp Pulse Resp BP Pulse Ox 97.7 F 108 H 18 170/77 H 100 07/15/20 05:08 07/15/20 05:33 07/15/20 00:02 07/15/20 05:33 07/15/20 05:08 Intake & Output 07/14/20 07/15/20 07/16/20 06:59 06:59 06:59 Intake Total 1030 1000 Balance 1030 1000 Weight 31.4 kg 30.6 kg General appearance: PRESENT: no acute distress, well-developed, well-nourished Head exam: PRESENT: atraumatic, normocephalic Eye exam: PRESENT: conjunctiva pink, EOMI, PERRLA. ABSENT: scleral icterus Ear exam: PRESENT: normal external ear exam Mouth exam: PRESENT: moist, tongue midline Neck exam: ABSENT: carotid bruit, JVD, lymphadenopathy, thyromegaly Respiratory exam: PRESENT: clear to auscultation pau. ABSENT: rales, rhonchi, wheezes Cardiovascular exam: PRESENT: RRR. ABSENT: diastolic murmur, rubs, systolic murmur Pulses: PRESENT: normal dorsalis pedis pul Vascular exam: PRESENT: normal capillary refill GI/Abdominal exam: PRESENT: normal bowel sounds, soft. ABSENT: distended, guarding, mass, organolmegaly, rebound, tenderness Rectal exam: PRESENT: deferred Extremities exam: PRESENT: full ROM. ABSENT: calf tenderness, clubbing, pedal edema Neurological exam: PRESENT: alert, awake, oriented to person, oriented to place, oriented to time, oriented to situation, CN II-XII grossly intact. ABSENT: motor sensory deficit Psychiatric exam: PRESENT: appropriate affect, normal mood. ABSENT: homicidal ideation, suicidal ideation Skin exam: PRESENT: dry, intact, warm. ABSENT: cyanosis, rash Results Laboratory Results: 07/14/20 05:05 Impressions: Head CT 07/07/20 01:28 IMPRESSION: No acute intracranial abnormality. Areas of old infarct bilaterally with atrophy and small vessel ischemic change TECHNICAL DOCUMENTATION: Quality ID # 436: Final reports with documentation of one or more dose reduction techniques (e.g., Automated exposure control, adjustment of the mA and/or kV according to patient size, use of iterative reconstruction technique) copyright 2011 [employer]- All Rights Reserved Lumbar Spine CT 07/07/20 02:36 IMPRESSION: 1. There is a lytic lesion within the left T12 pedicle with associated slight bowing of the posterior cortex of T12 into the spinal canal and a lytic lesion in the right S1 sacral ala and posterior medial right iliac bone. These are concerning for metastatic disease. 2. Degenerative changes of the lumbar spine as described above with moderate to severe stenosis at L4-L5 and mild stenosis at L3-L4 and L5-S1. There is multilevel bilateral neural foraminal stenosis. Tibia/Fibula X-Ray 07/07/20 02:36 IMPRESSION: Vague area of sclerosis involving the distal fibula on the left. However, this is indeterminate in etiology and clinical significance. This could simply reflect sequelae of old trauma. Osteopenia. No other evidence for osseous abnormality. Chest X-Ray 07/07/20 02:37 IMPRESSION: 1. Persistent right upper lung opacities with pleural base left lung calcification. Venous Doppler Study 07/07/20 07:31 IMPRESSION: NO EVIDENCE DVT OR SVT IN EITHER LEG. Modified Barium Swallow 07/08/20 00:00 IMPRESSION: LARYNGEAL PENETRATION AND ASPIRATION ABOVE. PLEASE SEE SPEECH PATHOLOGIST REPORT FOR OTHER FINDINGS AND RECOMMENDATIONS. PICC Line Insertion 07/09/20 00:00 IMPRESSION: SUCCESSFUL PLACEMENT OF A 5 FR DUAL LUMEN 38 CM PICC IN THE LEFT BASILIC VEIN. Abdomen/Pelvis CT 07/09/20 08:00 IMPRESSION: 1. Suspected liver metastasis. 2. Previously reported bone metastasis. Chest CT 07/09/20 08:00 IMPRESSION: Large left Pancoast tumor. Satellite lesions in the right lower lobe suspicious for metastatic disease. Gastrostomy Tube Placement 07/13/20 00:00 IMPRESSION: Please see combined report for performance of procedure and radiologic supervision and interpretation. Guidance Fluoroscopy 07/13/20 00:00 IMPRESSION: Dobhoff tube placement with catheter tip in the gastric antrum. Recommend KUB in the a.m. to assess for migration of catheter into the duodenum. Liver Biopsy Ultrasound 07/13/20 00:00 IMPRESSION: Successful ultrasound-guided biopsy of a hypoechoic hepatic lesion. KUB X-Ray 07/14/20 07:00 IMPRESSION: Nasoenteric feeding tube tip at the pylorus region. Small amount of contrast given during feeding tube placement 07/13/2020 is still in the stomach fundus Assessment & Plan - Diagnosis (1) Bladder cancer Qualifiers: Bladder location: unspecified site Qualified Code(s): C67.9 - Malignant neoplasm of bladder, unspecified Is this a current diagnosis for this admission?: Yes Plan: Now seems to be stage IV lung cancer, will discuss further with family (2) Dysphagia Qualifiers: Dysphagia type: unspecified Qualified Code(s): R13.10 - Dysphagia, unspecified Is this a current diagnosis for this admission?: Yes Plan: Continue with tube feeds (3) History of CVA with residual deficit Is this a current diagnosis for this admission?: Yes Plan: Continue with tube feeds (4) Severe protein-calorie malnutrition Is this a current diagnosis for this admission?: Yes Plan: Continue with tube feeds - Time Time Spent with patient: 25-34 minutes
[2020-07-15 07:55] LABS: HEMOGLOBIN 7.9 g/dL (13.5-17.0)
[2020-07-15] MEDS ORDERED: NA PHOS,M-B/NA PHOS,DI-BA (ADULT) 133 ML ENEMA PR ONE (08:00)
[2020-07-15] MEDS: ASPIRIN 81 MG TABLET, CHEWABLE PO SCH (10:20)
--- NOTE | 2020-07-15 18:45 | PDOC PROGRESS REPORT ---
Subjective Date:: 07/15/20 Subjective:: The patient is a 74 year old male with a past medical history of bladder cancer with metastasis, hypertension, hyperlipidemia, and CVA with residual left-sided weakness who was admitted 07/07/2020 with Dysphagia. Patient was seen on afternoon rounds with his niece, Lyndsay, present. He was found resting in bed, comfortably, on room air. He is orientated to self only; does not answer questions but does point to the television and asks me to look at the dog (appropriate statement as their was a commercial w/ puppies on at the time.) Niece states that otherwise he has had increased confusion today. ROS is otherwise limited r/t mentation. Discussed goals of care; niece states that family has decided to change code status to DNR. Otherwise, they would like to discuss PEG tube for continued TF at home prior choosing a palliative vs. hospice route. She has no other questions at this time. Nursing reports that patient removed dobhoff this morning; was in place just over 24 hours. Reason For Visit: DYSPHAGIA,UTI,SEVERE PROTEIN CALORI MALNUTRITION, Physical Exam Vital Signs: Temp Pulse Resp BP Pulse Ox 98 F 104 H 18 167/85 H 98 07/15/20 16:00 07/15/20 16:00 07/15/20 16:00 07/15/20 16:00 07/15/20 16:00 Intake & Output 07/14/20 07/15/20 07/16/20 06:59 06:59 06:59 Intake Total 1030 1000 Balance 1030 1000 Weight 31.4 kg 30.6 kg 36.7 kg General appearance: PRESENT: no acute distress, thin - Cachectic, well-developed Head exam: PRESENT: atraumatic, normocephalic Eye exam: PRESENT: conjunctiva pink, EOMI, PERRLA. ABSENT: scleral icterus Mouth exam: PRESENT: moist, tongue midline Teeth exam: PRESENT: poor dentation Respiratory exam: PRESENT: clear to auscultation pau, symmetrical, unlabored. ABSENT: rales, rhonchi, wheezes Cardiovascular exam: PRESENT: RRR. ABSENT: diastolic murmur, rubs, systolic murmur Vascular exam: PRESENT: normal capillary refill Extremities exam: PRESENT: full ROM - Moves all extremities spontaneously. ABSENT: calf tenderness, clubbing, pedal edema Neurological exam: PRESENT: alert, awake, oriented to person, CN II-XII grossly intact, other - Intermittent confusion; at baseline per family. Socially appropriate.. ABSENT: motor sensory deficit Psychiatric exam: PRESENT: appropriate affect, normal mood. ABSENT: homicidal ideation, suicidal ideation Skin exam: PRESENT: dry, intact, warm. ABSENT: cyanosis, rash Results Laboratory Results: 07/15/20 05:43 07/14/20 05:05 07/15/20 05:43 WBC 16.2 H RBC 2.91 L Hgb 7.9 L Hct 23.5 L MCV 81 MCH 27.3 MCHC 33.8 RDW 18.4 H Plt Count 294 Impressions: Head CT 07/07/20 01:28 IMPRESSION: No acute intracranial abnormality. Areas of old infarct bilaterally with atrophy and small vessel ischemic change TECHNICAL DOCUMENTATION: Quality ID # 436: Final reports with documentation of one or more dose reduction techniques (e.g., Automated exposure control, adjustment of the mA and/or kV according to patient size, use of iterative reconstruction technique) copyright 2011 [employer]- All Rights Reserved Lumbar Spine CT 07/07/20 02:36 IMPRESSION: 1. There is a lytic lesion within the left T12 pedicle with associated slight bowing of the posterior cortex of T12 into the spinal canal and a lytic lesion in the right S1 sacral ala and posterior medial right iliac bone. These are concerning for metastatic disease. 2. Degenerative changes of the lumbar spine as described above with moderate to severe stenosis at L4-L5 and mild stenosis at L3-L4 and L5-S1. There is multilevel bilateral neural foraminal stenosis. Tibia/Fibula X-Ray 07/07/20 02:36 IMPRESSION: Vague area of sclerosis involving the distal fibula on the left. However, this is indeterminate in etiology and clinical significance. This could simply reflect sequelae of old trauma. Osteopenia. No other evidence for osseous abnormality. Chest X-Ray 07/07/20 02:37 IMPRESSION: 1. Persistent right upper lung opacities with pleural base left lung calcification. Venous Doppler Study 07/07/20 07:31 IMPRESSION: NO EVIDENCE DVT OR SVT IN EITHER LEG. Modified Barium Swallow 07/08/20 00:00 IMPRESSION: LARYNGEAL PENETRATION AND ASPIRATION ABOVE. PLEASE SEE SPEECH PATHOLOGIST REPORT FOR OTHER FINDINGS AND RECOMMENDATIONS. PICC Line Insertion 07/09/20 00:00 IMPRESSION: SUCCESSFUL PLACEMENT OF A 5 FR DUAL LUMEN 38 CM PICC IN THE LEFT BASILIC VEIN. Abdomen/Pelvis CT 07/09/20 08:00 IMPRESSION: 1. Suspected liver metastasis. 2. Previously reported bone metastasis. Chest CT 07/09/20 08:00 IMPRESSION: Large left Pancoast tumor. Satellite lesions in the right lower lobe suspicious for metastatic disease. Gastrostomy Tube Placement 07/13/20 00:00 IMPRESSION: Please see combined report for performance of procedure and radiologic supervision and interpretation. Guidance Fluoroscopy 07/13/20 00:00 IMPRESSION: Dobhoff tube placement with catheter tip in the gastric antrum. Recommend KUB in the a.m. to assess for migration of catheter into the duodenum. Liver Biopsy Ultrasound 07/13/20 00:00 IMPRESSION: Successful ultrasound-guided biopsy of a hypoechoic hepatic lesion. KUB X-Ray 07/14/20 07:00 IMPRESSION: Nasoenteric feeding tube tip at the pylorus region. Small amount of contrast given during feeding tube placement 07/13/2020 is still in the stomach fundus Assessment and Plan - Diagnosis (1) Dysphagia Qualifiers: Dysphagia type: unspecified Qualified Code(s): R13.10 - Dysphagia, unspecified Is this a current diagnosis for this admission?: Yes Plan: Patient presents with worsening of dysphagia Was previously on pured diet but has not been able to swallow since discharge from hospital on 07/02/20 Swallow eval was done at the ED and patient failed Has no new focal neurologic deficits Likely due to progression of underlying oropharyngeal dysphagia Failed MBSS; high risk for aspiration all consistencies. Recommend alternate means of nutrition. Aspiration precaution Patient removed Dobbhoff this morning; just over 24 hours of use. He did tolerate tube feeds well. Patient's family members wish to discuss with surgery option for PEG. Spoke with Dr. Luis who saw the patient and discussed the risks and benefits of PEG; recommending home with hospice services. Per Dr. Luis, both the patient's brother and niece have agreed with recommendations as he is aligned with both myself and Dr. Arora. Discharge planning consulted for home hospice services. (2) Severe protein-calorie malnutrition Is this a current diagnosis for this admission?: Yes Plan: BMI 11.9 Likely secondary to malignancy patient is cachectic emaciated and malnourished. Discussed with family today; strongly leaning towards PEG tube for long-term nutrition needs. Advised the importance of resuming enteral nutrition to prevent GI complications. They are agreeable to Dobbhoff placement and starting continuous tube feeds. Patient's niece does wish to discuss PEG tube with family members prior to formal decision. IV fluids to KVO. Aspiration precautions. Plan as above. (3) Pancoast tumor of left lung Is this a current diagnosis for this admission?: Yes Plan: There is no neck swelling however this will likely explain patient's left upper extremity swelling. There is no numbness or tingling. Primary plan per oncology. Dr. Arora is consulted. Liver biopsy resulted lung malignancy. Discussed with Dr. Arora this morning. Unfortunately, the patient is too advanced for additional treatment options. He is recommending transition to comfort care with hospice services. (4) Bladder cancer Qualifiers: Bladder location: unspecified site Qualified Code(s): C67.9 - Malignant neoplasm of bladder, unspecified Is this a current diagnosis for this admission?: Yes Plan: Primary management per Oncology. Dr. Arora is consulted. Discussed with Dr. Arora this morning. Unfortunately, the patient is too adva nced for additional treatment options. He is recommending transition to comfort care with hospice services. (5) Hypertension Is this a current diagnosis for this admission?: Yes Plan: Currently NPO related to failed MBSS. We will increase clonidine transdermal patch to 0.3 mg. IV Vasotec as needed for blood pressure control. (6) Right hip pain Is this a current diagnosis for this admission?: Yes Plan: Due to his osseous lesion Analgesics as needed Nonpharmocological interventions for pain. Primary management per Oncology. (7) Urinary tract infection Qualifiers: Urinary tract infection type: site unspecified Hematuria presence: without hematuria Qualified Code(s): N39.0 - Urinary tract infection, site not specified Is this a current diagnosis for this admission?: Yes Plan: Urinalysis is negative for UTI Urine culture not obtained Blood cultures negative. Received IV Rocephin x4 days (8) History of CVA with residual deficit Is this a current diagnosis for this admission?: Yes Plan: Patient has a history of CVA with residual left-sided weakness Has no new focal neurologic deficit on this presentation P.o. medications have been on hold due to dysphagia (9) Poor prognosis Is this a current diagnosis for this admission?: Yes Plan: Unfortunately patient's prognosis is pretty dismal - Time Time Spent with patient: 25-34 minutes Medications reviewed and adjusted accordingly: Yes Anticipated Discharge Disposition: Home with Hospice Anticipated Discharge Timeframe: within 24 hours - once arrangements are made
[2020-07-15] MEDS ORDERED: CLONIDINE 0.3 MG/24 HR PATCH.TDWK TD SCH (22:00)
[2020-07-16] MEDS: INSULIN REG, HUMAN 100 UNIT/ML 3 ML VIAL (PYX) SUBCUT SCH ×4 (02:17→17:48)
[2020-07-16] MEDS: ASPIRIN 81 MG TABLET, CHEWABLE PO SCH (09:07)
--- NOTE | 2020-07-16 14:31 | PDOC DISCHARGE SUMMARY ---
Impression - Admit/DC Date/PCP Admission Date/Primary Care Provider: 07/08/20 13:19 NOAH GUO MD Discharge Date: 07/16/20 - Discharge Diagnosis (1) Dysphagia Is this a current diagnosis for this admission?: Yes (2) Severe protein-calorie malnutrition Is this a current diagnosis for this admission?: Yes (3) Pancoast tumor of left lung Is this a current diagnosis for this admission?: Yes (4) Bladder cancer Is this a current diagnosis for this admission?: Yes (5) Hypertension Is this a current diagnosis for this admission?: Yes (6) Right hip pain Is this a current diagnosis for this admission?: Yes (7) Urinary tract infection Is this a current diagnosis for this admission?: Yes (8) History of CVA with residual deficit Is this a current diagnosis for this admission?: Yes (9) Poor prognosis Is this a current diagnosis for this admission?: Yes - Additional Information Resuscitation Status: Do Not Resuscitate Discharge Diet: As Tolerated - aspiration precautions; npo except for tiny sips/bites for pleasure Discharge Activity: Activity As Tolerated Referrals: HOME,WITH HOSPICE [Other] Prescriptions: Clonidine [Catapres-Tts 3 (0.3 mg/24 Hr) Transderm Patch] 1 each TD We@10 #4 patch.tdwk Home Medications: Lisinopril [Prinivil 10 mg Tablet] 10 mg PO DAILY 07/02/20 Multivitamin [Tab-A-Catarina (Multiple Vitamin) Tablet] 1 tab PO DAILY 07/02/20 Oxybutynin Chloride [Oxybutynin Chloride ER] 10 mg PO DAILY 07/02/20 Tramadol HCl [Ultram 50 mg Tablet] 50 mg PO Q6HP PRN 07/02/20 Acetaminophen [Tylenol 325 mg Tablet] 650 mg PO Q4 tablet 07/04/20 Lidocaine [Blue-Emu Lidocaine Patch] 1 each TP DAILY #5 adh..patch 07/04/20 Clonidine [Catapres-Tts 3 (0.3 mg/24 Hr) Transderm Patch] 1 each TD We@10 #4 patch.tdwk 07/16/20 History of Present Illiness History of Present Illness: Per H&P by Dr. Rahman: THOM DELGADO is a 74 year old male with a history of gallbladder cancer status post resection and chemo, CVA with residual left-sided weakness, hypertension and hyperlipidemia who is brought in by his niece few days after discharge from hospital for difficulty of swallowing. She states that he has not been able to take his medication and has been unable to eat anything due to worsening dysphagia. Patient was discharged on pured diet but he has not been able to tolerate. Rapid swallow evaluation was done at the ED and failed. Patient also reports that he has been having right-sided hip pain. He has not had any new weakness of extremities. At baseline he has a slurred speech and he has no worsening of his speech. He denies any back pain, nausea, vomiting, chest pain, cough, palpitation, or any change in his bowel or urinary habits. He has been enrolled in home health for PT and he had a follow-up with heme-onc on 07/[address] Restrepo. Hospital Course Hospital Course: (1) Dysphagia Patient presents with worsening of dysphagia Was previously on pured diet but has not been able to swallow since discharge from hospital on 07/02/20 Swallow eval was done at the ED and patient failed Has no new focal neurologic deficits Likely due to progression of underlying oropharyngeal dysphagia Failed MBSS; high risk for aspiration all consistencies. Recommend alternate means of nutrition. Aspiration precaution Patient removed Dobbhoff; just over 24 hours of use. He did tolerate tube feeds well. Patient's family members spoke with Dr. Luis regarding the risks and be nefits of PEG; recommending home with hospice services. Per Dr. Luis, both the patient's brother and niece have agreed with recommendations as he is aligned with both myself and Dr. Arora. Discussed with patient's niece/primary youth career specialist and POA. Family would like patient to return home with home hospice services. (2) Severe protein-calorie malnutrition BMI 13.9 Likely secondary to malignancy patient is cachectic emaciated and malnourished. Discussed with family today; strongly leaning towards PEG tube for long-term nutrition needs. Advised the importance of resuming enteral nutrition to prevent GI complications. They are agreeable to Dobbhoff placement and starting continuous tube feeds. Aspiration precautions. Plan as above. (3) Pancoast tumor of left lung There is no neck swelling however this will likely explain patient's left upper extremity swelling. There is no numbness or tingling. Primary plan per oncology. Liver biopsy resulted lung malignancy. Discussed with Dr. Arora; recommending transition to comfort care with hospice services. (4) Bladder cancer Primary management per Oncology. Dr. Arora is consulted. Discussed with Dr. Arora; recommending transition to comfort care with hospice services. (5) Hypertension Improved blood pressure control with Clonidine transdermal patch 0.3 mg. (6) Right hip pain Due to his osseous lesion Analgesics as needed Nonpharmocological interventions for pain. (7) Urinary tract infection Resolved. Urinalysis is negative for UTI Urine culture not obtained Blood cultures negative. Received IV Rocephin x4 days (8) History of CVA with residual deficit Patient has a history of CVA with residual left-sided weakness Has no new focal neurologic deficit on this presentation P.o. medications have been discontinued due to dysphagia (9) Poor prognosis Patient's family has requested d/c to home with home hospice services. Physical Exam Vital Signs: Temp Pulse Resp BP Pulse Ox 97.9 F 93 20 145/79 H 99 07/16/20 11:41 07/16/20 11:41 07/16/20 11:41 07/16/20 11:41 07/16/20 11:41 Intake & Output 07/15/20 07/16/20 07/17/20 06:59 06:59 06:59 Intake Total 1000 Balance 1000 Weight 30.6 kg 36.7 kg General appearance: PRESENT: no acute distress, thin - Cachectic Head exam: PRESENT: atraumatic, normocephalic Eye exam: PRESENT: conjunctiva pink, EOMI, PERRLA. ABSENT: scleral icterus Mouth exam: PRESENT: moist Respiratory exam: PRESENT: clear to auscultation pau, other - Room air. ABSENT: rales, rhonchi, wheezes Cardiovascular exam: PRESENT: RRR. ABSENT: diastolic murmur, rubs, systolic murmur Pulses: PRESENT: +1 pedal pulses bilateral Extremities exam: PRESENT: full ROM - Moves all extremities spontaneously. ABSENT: pedal edema Neurological exam: PRESENT: alert, awake, oriented to person, CN II-XII grossly intact, other - Makes eye contact and smiles; speaking incoherently today.. ABSENT: motor sensory deficit Skin exam: PRESENT: dry, intact, warm. ABSENT: cyanosis, rash Results Laboratory Results: WBC 16.2 10^3/uL (4.0-10.5) H 07/15/20 05:43 RBC 2.91 10^6/uL (4.35-5.55) L 07/15/20 05:43 Hgb 7.9 g/dL (13.5-17.0) L 07/15/20 05:43 Hct 23.5 % (37.9-51.0) L 07/15/20 05:43 MCV 81 fl (80-97) 07/15/20 05:43 MCH 27.3 pg (27.0-33.4) 07/15/20 05:43 MCHC 33.8 g/dL (32.0-36.0) 07/15/20 05:43 RDW 18.4 % (11.5-14.0) H 07/15/20 05:43 Plt Count 294 10^3/uL (150-450) 07/15/20 05:43 Lymph % (Auto) 10.4 % (13-45) L 07/09/20 04:54 [place] % (Auto) 6.0 % (3-13) 07/09/20 04:54 Eos % (Auto) 0.5 % (0-6) 07/09/20 04:54 Baso % (Auto) 0.6 % (0-2) 07/09/20 04:54 Absolute Neuts (auto) 12.8 10^3/uL (1.7-8.2) H 07/09/20 04:54 Absolute Lymphs (auto) 1.6 10^3/uL (0.5-4.7) 07/09/20 04:54 Absolute Monos (auto) 0.9 10^3/uL (0.1-1.4) 07/09/20 04:54 Absolute Eos (auto) 0.1 10^3/uL (0.0-0.6) 07/09/20 04:54 Absolute Basos (auto) 0.1 10^3/uL (0.0-0.2) 07/09/20 04:54 Seg Neutrophils % 82.5 % (42-78) H 07/09/20 04:54 Platelet Estimate Cancelled 07/09/20 17:58 PT 13.0 SEC (11.4-15.4) 07/13/20 06:20 INR 0.96 07/13/20 06:20 Sodium 136.0 mmol/L (137-145) L 07/14/20 05:05 Potassium 4.0 mmol/L (3.6-5.0) 07/14/20 05:05 Chloride 104 mmol/L (98-107) 07/14/20 05:05 Carbon Dioxide 26 mmol/L (22-30) 07/14/20 05:05 Anion Gap 6 (5-19) 07/14/20 05:05 BUN 19 mg/dL (7-20) 07/14/20 05:05 Creatinine 0.58 mg/dL (0.52-1.25) 07/14/20 05:05 Est GFR ( Amer) > 60 (>60) 07/14/20 05:05 Est GFR (MDRD) Non-Af > 60 (>60) 07/14/20 05:05 Glucose 87 mg/dL (75-110) 07/14/20 05:05 POC Glucose 93 mg/dL (70-110) 07/16/20 11:39 Calcium 8.7 mg/dL (8.4-10.2) 07/14/20 05:05 Phosphorus 3.1 mg/dL (2.5-4.5) 07/13/20 06:20 Magnesium 2.1 mg/dL (1.6-2.3) 07/13/20 06:20 Total Bilirubin 0.6 mg/dL (0.2-1.3) 07/13/20 06:20 Direct Bilirubin 0.2 mg/dL (0.0-0.4) 07/13/20 06:20 Neonat Total Bilirubin Not Reportable 07/13/20 06:20 Neonat Direct Bilirubin Not Reportable 07/13/20 06:20 Neonat Indirect Bili Not Reportable 07/13/20 06:20 AST 116 U/L (17-59) H 07/13/20 06:20 ALT 77 U/L (<50) H 07/13/20 06:20 Alkaline Phosphatase 181 U/L (38-126) H 07/13/20 06:20 Total Protein 6.4 g/dL (6.3-8.2) 07/13/20 06:20 Albumin 2.9 g/dL (3.5-5.0) L 07/13/20 06:20 Prealbumin 9.6 mg/dL (17.6-36.0) L 07/13/20 06:20 Triglycerides 51 mg/dL (<150) 07/09/20 17:58 Urine Color YELLOW 07/07/20 03:05 Urine Appearance SLIGHTLY-CLOUDY 07/07/20 03:05 Urine pH 6.0 (5.0-9.0) 07/07/20 03:05 Ur Specific Harvey 1.017 07/07/20 03:05 Urine Protein 30 mg/dL (NEGATIVE) H 07/07/20 03:05 Urine Glucose (UA) NEGATIVE mg/dL (NEGATIVE) 07/07/20 03:05 Urine Ketones NEGATIVE mg/dL (NEGATIVE) 07/07/20 03:05 Urine Blood NEGATIVE (NEGATIVE) 07/07/20 03:05 Urine Nitrite (Reflex) NEGATIVE (NEGATIVE) 07/07/20 03:05 Urine Bilirubin NEGATIVE (NEGATIVE) 07/07/20 03:05 Urine Urobilinogen NEGATIVE mg/dL (<2.0) 07/07/20 03:05 Leukocyte Esterase Rfl MODERATE (NEGATIVE) H 07/07/20 03:05 Urine RBC (Auto) 6 /HPF 07/07/20 03:05 U Hyaline Cast (Auto) 1 /LPF 07/07/20 03:05 Urine WBC (Reflex) 22 /HPF 07/07/20 03:05 Urine Mucus (Auto) RARE /LPF 07/07/20 03:05 Urine Ascorbic Acid NEGATIVE (NEGATIVE) 07/07/20 03:05 Slides for Path Review Cancelled 07/09/20 17:58 Impressions: Head CT 07/07/20 01:28 IMPRESSION: No acute intracranial abnormality. Areas of old infarct bilaterally with atrophy and small vessel ischemic change TECHNICAL DOCUMENTATION: Quality ID # 436: Final reports with documentation of one or more dose reduction techniques (e.g., Automated exposure control, adjustment of the mA and/or kV according to patient size, use of iterative reconstruction technique) copyright 2011 [employer]- All Rights Reserved Lumbar Spine CT 07/07/20 02:36 IMPRESSION: 1. There is a lytic lesion within the left T12 pedicle with associated slight bowing of the posterior cortex of T12 into the spinal canal and a lytic lesion in the right S1 sacral ala and posterior medial right iliac bone. These are concerning for metastatic disease. 2. Degenerative changes of the lumbar spine as described above with moderate to severe stenosis at L4-L5 and mild stenosis at L3-L4 and L5-S1. There is multilevel bilateral neural foraminal stenosis. Tibia/Fibula X-Ray 07/07/20 02:36 IMPRESSION: Vague area of sclerosis involving the distal fibula on the left. However, this is indeterminate in etiology and clinical significance. This could simply reflect sequelae of old trauma. Osteopenia. No other evidence for osseous abnormality. Chest X-Ray 07/07/20 02:37 IMPRESSION: 1. Persistent right upper lung opacities with pleural base left lung calcification. Venous Doppler Study 07/07/20 07:31 IMPRESSION: NO EVIDENCE DVT OR SVT IN EITHER LEG. Modified Barium Swallow 07/08/20 00:00 IMPRESSION: LARYNGEAL PENETRATION AND ASPIRATION ABOVE. PLEASE SEE SPEECH PATHOLOGIST REPORT FOR OTHER FINDINGS AND RECOMMENDATIONS. PICC Line Insertion 07/09/20 00:00 IMPRESSION: SUCCESSFUL PLACEMENT OF A 5 FR DUAL LUMEN 38 CM PICC IN THE LEFT BASILIC VEIN. Abdomen/Pelvis CT 07/09/20 08:00 IMPRESSION: 1. Suspected liver metastasis. 2. Previously reported bone metastasis. Chest CT 07/09/20 08:00 IMPRESSION: Large left Pancoast tumor. Satellite lesions in the right lower lobe suspicious for metastatic disease. Gastrostomy Tube Placement 07/13/20 00:00 IMPRESSION: Please see combined report for performance of procedure and radiologic supervision and interpretation. Guidance Fluoroscopy 07/13/20 00:00 IMPRESSION: Dobhoff tube placement with catheter tip in the gastric antrum. Recommend KUB in the a.m. to assess for migration of catheter into the duodenum. Liver Biopsy Ultrasound 07/13/20 00:00 IMPRESSION: Successful ultrasound-guided biopsy of a hypoechoic hepatic lesion. KUB X-Ray 07/14/20 07:00 IMPRESSION: Nasoenteric feeding tube tip at the pylorus region. Small amount of contrast given during feeding tube placement 07/13/2020 is still in the stomach fundus Plan Plan of Treatment: Patient is discharged home, into the care of family members, with home hospice services. Recommend he follow-up with his hospice provider within 1 week. Have discussed with family aspiration precautions and option for pleasure feeds. They are aware of the risk of continuing to provide fluids and nutrition by mouth. Return to the emergency department, as needed, for concerning symptoms. Time Spent: Greater than 30 Minutes Stroke Is this a Stroke Patient?: No Acute Heart Failure Is this a Heart Failure Patient?: No
[2020-07-16] MEDS ORDERED: DEXTROSE 5%-NORMAL SALINE 1,000 ML IV PRN (18:54)
[2020-07-17] MEDS: INSULIN REG, HUMAN 100 UNIT/ML 3 ML VIAL (PYX) SUBCUT SCH ×3 (01:34→12:46)
[2020-07-17] MEDS: ASPIRIN 81 MG TABLET, CHEWABLE PO SCH (09:01)
[2020-07-17] MEDS: NORMAL SALINE INJ/PF 0.9% 10 ML SDV IV PRN (09:12)
[2020-07-17 12:43] VITALS: BP 127/70
== END 2020-07-17 13:46 | disposition hospice, home (50) | DRG 686 ==
LOC: ER 00:13 → EH 06:04 → 4W 08:04 → OBSVTOIN 07-08 13:19
PROVIDERS: ADMIT Student in an Organized Health Care Education/Training Program; ATTEND Registered Nurse
PROC: 02HV33Z Insertion of Infusion Device into Superior Vena Cava, Percutaneous Approach (ICD-10-PCS; 2020-07-09)
PROC: 3E0G76Z Introduction of Nutritional Substance into Upper GI, Via Natural or Artificial Opening (ICD-10-PCS; 2020-07-10)
PROC: 0FB13ZX Excision of Right Lobe Liver, Percutaneous Approach, Diagnostic (ICD-10-PCS; principal; 2020-07-13)
PROC: 3E03317 Introduction of Other Thrombolytic into Peripheral Vein, Percutaneous Approach (ICD-10-PCS; 2020-07-13)
PROC: 0DH67UZ Insertion of Feeding Device into Stomach, Via Natural or Artificial Opening (ICD-10-PCS; 2020-07-13)
DX: C67.9 Malignant neoplasm of bladder, unspecified (principal); E43 Unspecified severe protein-calorie malnutrition; C79.9 Secondary malignant neoplasm of unspecified site; I69.354 Hemiplegia and hemiparesis following cerebral infarction affecting left non-dominant side; C34.10 Malignant neoplasm of upper lobe, unspecified bronchus or lung; N39.0 Urinary tract infection, site not specified; Z68.1 Body mass index [BMI] 19.9 or less, adult; F03.90 Unspecified dementia, unspecified severity, without behavioral disturbance, psychotic disturbance, mood disturbance, and anxiety; R13.10 Dysphagia, unspecified; I10 Essential (primary) hypertension; M25.551 Pain in right hip; Z66 Do not resuscitate; Z51.5 Encounter for palliative care; E78.5 Hyperlipidemia, unspecified; R47.81 Slurred speech; Z92.21 Personal history of antineoplastic chemotherapy; Z87.891 Personal history of nicotine dependence; Z79.899 Other long term (current) drug therapy
CPT/HCPCS: 36415; 36573; 44500; 47000; 51701; 70450; 71045; 71260; 72131; 74018; 74177; 74230; 74340; 80048; 80053; 81001; 82962; 83735; 84100; 84134; 84478; 85025; 85027; 85610; 87040; 88305; 88313; 88341; 88342; 93970; 96365; 99285; C1769; C9113; G0378; J0131; J0696; J1642; J1650; J2250; J2270; J2997; J3010; J3490; J7030; J7042; J7060